=== PATIENT | female | born 1935 | race Caucasian/White ===

== ENCOUNTER → 2016-05-30 | Outpatient (CLI) | payer OTHER ==
[~2016-05-30] MED LIST: ACET-1311 PO; BUPR75TA20 PO; CLC100X PO; DIGO0.122 PO; DILT120T8 PO; FERR325T5 PO; MAGNTAB4 PO; METO-596 PO; METO25TA56 PO; NMN10 PO; POTA-327 PO; SENN1TAB65 PO; SIMV10TA2 PO; SIMV20TA2 PO; SODI1TAB PO; WARF4TAB PO; WARF5TAB90 PO; ZNTT/150 PO
[2016-05-30 08:44] LABS: INR 2.5 (0.9-1.1); PROTHROMBIN TIME (PATIENT) 28.2 SECONDS (9.0-12.0)
== END ==
LOC: C.LABCC 08:21
PROVIDERS: ATTEND Internal Medicine
DX: I48.91 Unspecified atrial fibrillation (principal)

== ENCOUNTER → 2016-07-01 | Outpatient (CLI) | payer OTHER ==
[2016-07-01 08:14] LABS: INR 2.4 (0.9-1.1); PROTHROMBIN TIME (PATIENT) 26.4 SECONDS (9.0-12.0)
== END ==
LOC: C.LABCC 07:52
PROVIDERS: ATTEND Internal Medicine
DX: I48.91 Unspecified atrial fibrillation (principal)

== ENCOUNTER → 2016-08-04 | Outpatient (CLI) | payer OTHER ==
[2016-08-04 08:25] LABS: INR 1.5 (0.9-1.1); PROTHROMBIN TIME (PATIENT) 16.4 SECONDS (9.0-12.0)
== END ==
LOC: C.LABCC 07:54
PROVIDERS: ATTEND Internal Medicine
DX: I48.91 Unspecified atrial fibrillation (principal)

== ENCOUNTER → 2016-08-12 | Outpatient (CLI) | payer OTHER ==
[2016-08-12 09:22] LABS: INR 2.4 (0.9-1.1); PROTHROMBIN TIME (PATIENT) 26.6 SECONDS (9.0-12.0)
== END ==
LOC: C.LABCC 08:43
PROVIDERS: ATTEND Internal Medicine
DX: I48.91 Unspecified atrial fibrillation (principal)

== ENCOUNTER → 2016-08-29 | Outpatient (CLI) | payer OTHER ==
[2016-08-29 08:32] LABS: INR 2.5 (0.9-1.1); PROTHROMBIN TIME (PATIENT) 27.4 SECONDS (9.0-12.0)
== END ==
LOC: C.LABCC 07:53
PROVIDERS: ATTEND Internal Medicine
DX: I48.91 Unspecified atrial fibrillation (principal)

== ENCOUNTER → 2016-08-30 | Outpatient (CLI) | payer OTHER | LOC: C.LABCC 07:51 | PROVIDERS: ATTEND Internal Medicine | DX: I25.10 Atherosclerotic heart disease of native coronary artery without angina pectoris (principal); Z51.81 Encounter for therapeutic drug level monitoring; Z79.899 Other long term (current) drug therapy ==

== ENCOUNTER → 2016-09-22 | Outpatient (CLI) | payer OTHER ==
[2016-09-22 09:27] LABS: HEMATOCRIT 33.9 % (37-47); MEAN CELL VOLUME 87.6 fL (80-100); MEAN CORPUSCULAR HEMOGLOBIN 27.4 pg (25-34); MEAN CORPUSCULAR HGB CONC 31.3 g/dl (32-36); MEAN PLATELET VOLUME 9.7 fL (7.4-10.4); PLATELET COUNT 229 K/uL (130-400); RED BLOOD COUNT 3.87 M/uL (4.2-5.4); WHITE BLOOD COUNT 4.99 K/uL (4.8-10.8)
[2016-09-22 10:01] LABS: ALT/SGPT 18 U/L (12-78); BLOOD UREA NITROGEN 19 mg/dl (7-18); BUN/CREATININE RATIO 19.6 (10-20); CARBON DIOXIDE 26 mmol/L (21-32); CHLORIDE 102 mmol/L (98-107); CREATININE 0.96 mg/dl (0.60-1.20); GLUCOSE 85 mg/dl (70-99); POTASSIUM 4.4 mmol/L (3.5-5.1); SODIUM 136 mmol/L (136-145)
[2016-09-22 10:07] LABS: ALB/GLOB RATIO 0.7 (0.9-2); ALKALINE PHOSPHATASE 95 U/L (45-117); AST/SGOT 16 U/L (15-37); FERRITIN 140.1 ng/ml (8.0-388.0); TOTAL IRON BINDING CAPACITY 274 mcg/dl (250-450)
[2016-09-22 10:21] LABS: CALCIUM 8.8 mg/dl (8.5-10.1)
== END ==
LOC: C.LABCC 07:52
PROVIDERS: ATTEND Internal Medicine
DX: D64.9 Anemia, unspecified (principal); I95.9 Hypotension, unspecified; F03.90 Unspecified dementia, unspecified severity, without behavioral disturbance, psychotic disturbance, mood disturbance, and anxiety

== ENCOUNTER → 2016-09-30 | Outpatient (CLI) | payer OTHER ==
[2016-09-30 08:57] LABS: INR 1.9 (0.9-1.1); PROTHROMBIN TIME (PATIENT) 21.3 SECONDS (9.0-12.0)
== END ==
LOC: C.LABCC 08:00
PROVIDERS: ATTEND Internal Medicine
DX: I48.91 Unspecified atrial fibrillation (principal)

== ENCOUNTER → 2016-10-10 | Outpatient (CLI) | payer OTHER ==
[2016-10-10 10:26] LABS: INR 1.7 (0.9-1.1); PROTHROMBIN TIME (PATIENT) 18.9 SECONDS (9.0-12.0)
== END | disposition home or self-care (01) ==
LOC: C.LABCC 07:46
PROVIDERS: ATTEND Internal Medicine
DX: I48.91 Unspecified atrial fibrillation (principal)

== ENCOUNTER 2016-10-13 21:05 | Inpatient (IN) | payer OTHER ==
[~2016-10-13] VITALS: Ht 170.2 cm; Wt 78.6 kg
[~2016-10-13 21:05] MED LIST changes: -ACET-1311 PO; -BUPR75TA20 PO; -METO25TA56 PO; -SENN1TAB65 PO; -SIMV10TA2 PO; -SODI1TAB PO; -ZNTT/150 PO
--- NOTE | 2016-10-13 21:23 | DIAGNOSTIC IMAGING REPORT ---
CT OF THE HEAD WITHOUT CONTRAST CLINICAL HISTORY: Stroke alert. COMPARISON STUDY: Head CT December 03, 2014. CT DOSE: 964.40 mGy.cm TECHNIQUE: Helical axial images of the head were obtained without IV contrast. Automated exposure control was utilized for the study. FINDINGS: No acute intracranial hemorrhage, midline shift or mass effect is present. Study is mildly compromised by artifact. Old left MCA territory infarct is noted. There is increased attenuation within the distal left middle cerebral artery. This is age indeterminate. There is possible hypodensity within the lateral aspect of the right cerebellar hemisphere. There is also possible loss of castle-white differentiation within the anterior left frontal lobe. Ventricular system is unremarkable. There are no significant calvarial abnormalities. There are postsurgical finding within the sinuses. IMPRESSION: 1. No acute intracranial hemorrhage or mass effect. 2. Old left MCA territory infarct. 3. Apparent increased attenuation of the distal left middle cerebral artery. This could reflect age indeterminate thrombus. 4. Hypodensity within the lateral right cerebellar hemisphere and possible loss of castle-white differentiation within the anterior left frontal lobe. The findings are probably artifactual although acute infarcts could appear similar. Electronically signed by: Vlad Orourke M.D. 10/13/2016 9:22 PM Dictated Date/Time: 10/13/2016 9:13 PM
[2016-10-13 21:30] LABS: ISTAT HEMOGLOBIN 13.9 g/dl (12.0-16.0); ISTAT IONIZED CALCIUM 1.19 mmol/l (1.12-1.32)
[2016-10-13] MEDS ORDERED: SODIUM CHLORIDE 0.9% 1000ML 1,000 ML IV SCH (21:31)
--- NOTE | 2016-10-13 21:34 | EMERGENCY ROOM VISIT NOTE ---
History Report prepared by Rafal: Ema Joe Under the Supervision of: Dr. Marzena Cobian M.D. First contact with patient: 21:04 Chief Complaint: STROKE SYMPTOMS Stated Complaint: STROKE SX History of Present Illness The patient is an 80 year old female who presents to the Emergency Room with complaints of sudden stroke symptoms that began around 1899. Per EMS, the patient arrives via ALS from [facility]. They note that the patient had sudden onset of stroke symptoms. EMS reports that the patient has had aphasia, right sided facial droop, and right sided weakness. EMS reports that the patient is a full code. They note that the patient has a history of a previous stroke in 2014. The history is limited secondary to the patient's aphasia. Source of History: patient History Limited By: aphasia Onset: 1899 Position: other (global) Quality: other (stroke symptoms) Timing: other (sudden) Associated Symptoms: + weakness (right sided) Note: Associated Symptoms: aphasia, right sided facial droop Review of Systems The history is limited secondary to the patient's aphasia. Past Medical & Surgical Medical Problems: (1) Atrial fibrillation (2) Benign essential hypertension (3) Dyslipidemia (4) Hyponatremia (5) Implantation of cardiac pacemaker (6) Mitral valve regurgitation (7) Pulmonary hypertension (8) Tricuspid valve regurgitation Family History Patient reports no known family medical history. Social History Smoking Status: Never Smoker Alcohol Use: none Marital Status: single Housing Status: lives alone Occupation Status: retired Current/Historical Medications Scheduled Bupropion (Wellbutrin), 75 MG PO QAM Digoxin (Lanoxin), 0.125 MG PO QAM Diltiazem Hcl (Cardizem), 120 MG PO QAM Ferrous Sulfate (Ferrous Sulfate), 325 MG PO QAM Magnesium Chloride (Slow-Mag Tab), 64 MG PO BID Memantine (Namenda), 10 MG PO BID Metoprolol Tartrate (Lopressor) (Lopressor), 25 MG PO BID Potassium Ext Rel (Klor-Con), 10 MEQ PO BID Ranitidine (Zantac), 150 MG PO HS Sennosides-Docusate Sodium (Senna Plus), 1 TAB PO BID Simvastatin (Zocor), 10 MG PO QPM Sodium Chloride (Sodium Chloride), 2 GM PO TID Warfarin Sodium (Coumadin), 5 MG PO DAILY Scheduled PRN Acetaminophen (Tylenol), 650 MG PO Q6H PRN for Pain or Fever Allergies Coded Allergies: No Known Allergies (Verified , NONE, 10/13/16) Physical Exam Vital Signs Date Time Temp Pulse Resp B/P (MAP) Pulse Ox O2 Delivery O2 Flow Rate FiO2 10/13/16 23:51 85 97 10/13/16 23:36 83 96 10/13/16 23:31 158/65 10/13/16 23:21 76 155/72 96 10/13/16 23:11 135/73 10/13/16 23:06 80 97 10/13/16 23:01 160/74 10/13/16 22:56 91 98 10/13/16 22:51 163/65 10/13/16 22:46 84 93 10/13/16 22:41 166/76 10/13/16 22:36 79 96 10/13/16 22:31 186/83 10/13/16 22:26 80 97 10/13/16 22:21 178/106 10/13/16 22:15 83 96 10/13/16 22:12 150/73 10/13/16 22:05 82 97 10/13/16 22:01 158/73 10/13/16 21:55 74 97 10/13/16 21:51 169/82 10/13/16 21:45 79 96 10/13/16 21:41 159/78 10/13/16 21:36 96 Room Air 10/13/16 21:35 76 96 10/13/16 21:34 75 20 145/78 97 Room Air 10/13/16 21:32 145/78 10/13/16 21:25 80 97 10/13/16 21:21 83 10/13/16 21:19 36.4 81 20 167/75 97 Room Air 10/13/16 21:15 167/75 Physical Exam Vital signs reviewed. General: Well-appearing female, in no significant distress. HEENT: No scleral icterus, PERRLA, mild right nasal labial fold flattening, neck supple. Atraumatic. Cardiovascular: Regular rate and rhythm, no extra sounds. Pulmonary: Clear to auscultation bilaterally, normal work of breathing. Abdomen: Soft, nontender, nondistended, positive bowel sounds. Musculoskeletal: Atraumatic, no peripheral edema. Neurologic: 3/5 strength in the right upper extremity, 3/5 strength in the right lower extremity. Moderate right pronator drift. Generally follows simple commands, unable to state month, age, or current year. Answers her name and date. Speech is slurred. Skin: Warm, dry, no rash Medical Decision & Procedures ER Provider Diagnostic Interpretation: Radiology results as stated below per my review and radiologist interpretation: CT OF THE HEAD WITHOUT CONTRAST CLINICAL HISTORY: Stroke alert. COMPARISON STUDY: Head CT December 03, 2014. CT DOSE: 964.40 mGy.cm TECHNIQUE: Helical axial images of the head were obtained without IV contrast. Automated exposure control was utilized for the study. FINDINGS: No acute intracranial hemorrhage, midline shift or mass effect is present. Study is mildly compromised by artifact. Old left MCA territory infarct is noted. There is increased attenuation within the distal left middle cerebral artery. This is age indeterminate. There is possible hypodensity within the lateral aspect of the right cerebellar hemisphere. There is also possible loss of castle-white differentiation within the anterior left frontal lobe. Ventricular system is unremarkable. There are no significant calvarial abnormalities. There are postsurgical finding within the sinuses. IMPRESSION: 1. No acute intracranial hemorrhage or mass effect. 2. Old left MCA territory infarct. 3. Apparent increased attenuation of the distal left middle cerebral artery. This could reflect age indeterminate thrombus. 4. Hypodensity within the lateral right cerebellar hemisphere and possible loss of castle-white differentiation within the anterior left frontal lobe. The findings are probably artifactual although acute infarcts could appear similar. Electronically signed by: Vlad Orourke M.D. 10/13/2016 9:22 PM Dictated Date/Time: 10/13/2016 9:13 PM CHEST ONE VIEW PORTABLE CLINICAL HISTORY: Stroke COMPARISON STUDY: Chest radiograph December 03, 2014. FINDINGS: A dual lead left subclavian pacemaker is noted. Lead is unchanged in position. Cardiomegaly is unchanged. There is pulmonary vascular congestion without overt pulmonary edema. Mild left basilar opacity is unchanged and likely chronic. Elevation of the no pneumothorax. The right hemidiaphragm is unchanged. There is no pneumothorax. Positioning on this exam was difficult. IMPRESSION: 1. No significant change in appearance of the chest. 2. Pulmonary vascular congestion without overt pulmonary edema. 3. Stable elevation of the right hemidiaphragm. 4. Mild right basilar opacity which favors atelectasis. Electronically signed by: Vlad Orourke M.D. 10/13/2016 10:54 PM Dictated Date/Time: 10/13/2016 10:52 PM Laboratory Results Test 10/13/16 20:50 10/13/16 21:14 10/13/16 21:16 10/13/16 21:19 Total Creatine Kinase 49 U/L (26-192) Creatine Kinase MB 1.7 ng/ml (0.5-3.6) Creatine Kinase MB Ratio 3.5 (0-3.0) Troponin I < 0.015 ng/ml (0-0.045) Bedside Hemoglobin 13.9 g/dl (12.0-16.0) Bedside Hematocrit 41 % (37-47) Bedside Sodium 135 mEq/L (135-144) Bedside Potassium 4.0 mEq/L (3.3-5.0) Bedside Chloride 96 mEq/L (101-112) Bedside Total CO2 29 mEq/l (24-31) Bedside Blood Urea Nitrogen 20 mg/dl (7-18) Bedside Creatinine 1.0 mg/dl (0.6-1.3) Bedside Glucose (other) 169 mg/dl (70-99) Bedside Ionized Calcium (Samia) 1.19 mmol/l (1.12-1.32) Bedside Prothrombin Time INR 2.2 (0.9-1.1) Bedside Glucose 186 mg/dl (70-90) Test 10/13/16 22:55 Urine Color YELLOW Urine Appearance CLEAR (CLEAR) Urine pH 5.5 (4.5-7.5) Urine Specific [place] 1.010 (1.000-1.030) Urine Protein NEG (NEG) Urine Glucose (UA) NEG (NEG) Urine Ketones NEG (NEG) Urine Occult Blood 1+ (NEG) Urine Nitrite POS (NEG) Urine Bilirubin NEG (NEG) Urine Urobilinogen NEG (NEG) Urine Leukocyte Esterase NEG (NEG) Urine WBC (Auto) 0 /hpf (0-5) Urine RBC (Auto) 0-4 /hpf (0-4) Urine Hyaline Casts (Auto) 1-5 /lpf (0-5) Urine Epithelial Cells (Auto) 0-5 /lpf (0-5) Urine Bacteria (Auto) 4+ (NEG) Laboratory results per my review. Medications Administered Medications (Trade) Dose Ordered Sig/Yonathan Route Start Time Stop Time Status Last Admin Dose Admin Sodium Chloride 1,000 ml @ 75 mls/hr [id number] IV 10/13/16 21:31 10/14/16 02:30 DC 10/13/16 22:00 75 MLS/HR ECG Indication: other (stroke symptoms) Rate (beats per minute): 79 Rhythm: other (ventricular paced) Findings: PVC, no acute ischemic change ED Course 2104: The patient arrived to the emergency department and was taken straight over for a CT scan. 2113: Past medical records reviewed. The patient was evaluated in room A1. A complete history and physical examination was performed. 2130: I discussed the patients case with Jordyn White Stroke Neurology. He will evaluate the patient via TeleStroke. Ordered Sodium Chloride 1000 ml @ 75 mls/hr IV. 2208: I reevaluated the patient and Jordyn White Stroke Neurology is evaluating the patient via TeleStroke. 2212: The patients family arrived at this time and Jordyn White Stroke Neurology spoke to the family at this time. 2223: I spoke to the patients family at this time. 2231: I spoke to Jordyn White Stroke Neurology at this time 2315: I reevaluated the patient and she is resting. I discussed the exam findings with the patients family and I discussed the treatment plan. They verbalized complete understanding and agreement. The patient will be evaluated for further treatment. 2346: The patients case was discussed [place] [facility] [place] is going to evaluate the patient for further treatment. Medical Decision Differential diagnosis: Etiologies such as metabolic, infection, hypo/hyperglycemia, electrolyte abnormalities, cardiac sources, intracerebral event, toxicologic, neurologic, as well as others were entertained. Medication Reconciliation: I attest that I have personally reviewed the patient' s current medication list. Blood Pressure Screening: Patient was found to have an elevated blood pressure and will be followed up while evaluated in the hospital. This patient was evaluated and appeared to be in no significant distress. IV access was obtained and laboratory work was drawn. CT scan of the head was performed and is read as above. There is a concern over a distal left MCA thrombus. The age is uncertain. The patient appears to be having an acute stroke. Her baseline is difficult to ascertain at this point. I did speak with the patient's son on the phone who states he is on his way to the hospital. The patient does not meet criteria for TPA based on her INR of 2.2. Telemetry stroke neurology, Dr. Da Silva, was consulted. He evaluated the patient and her determined after his evaluation and conversation with the patient's son and grandson at the bedside, that she would best be served at [facility] given her chronic illness. The patient has limited mobility at baseline and uses a wheelchair. The patient's case was discussed with the hospitalist service who evaluated the patient for admission and further management. Consults Time Called: 2123 Consulting Physician: Jordyn [facility] Neu[facility] Returned Call: 2130 I discussed the patients case with Jordyn White Stroke Neurology. He will evaluate the patient via TeleStroke. Additional Consults: Time Called: 2316 Consulted Physician: JELANI Enciso Returned Call: [phone] Additional Comments: The patients case was discussed with JELANI Enciso. He is going to evaluate the patient for further treatment. Impression Primary Impression: Altered mental status Additional Impressions: Stroke UTI (lower urinary tract infection) Scribe Attestation The scribe's documentation has been prepared under my direction and personally reviewed by me in its entirety. I confirm that the note above accurately reflects all work, treatment, procedures, and medical decision making performed by me. Departure Information Dispostion Being Evaluated By Hospitalist Referrals [facility] (PCP) Stroke History Time Last Known Well 1919 Stroke t-PA Criteria Reviewed Does NOT meet criteria for t-PA Reason t-PA Not Given Treatment not indicated Strict Exclusion Criteria INR greater than 1.7 Extended Window (3-4.5 hour) Age greater than 80, Any anticoagulant use Problem Qualifiers
[2016-10-13 21:46] LABS: BASO % 0.3 %; BASO ABS # 0.02 K/uL (0-0.2); COMPLETE YES; EOS % 6.2 %; HEMATOCRIT 39.4 % (37-47); LYMPH % 18.9 %; MEAN CELL VOLUME 87.6 fL (80-100); MEAN CORPUSCULAR HEMOGLOBIN 28.7 pg (25-34); MEAN CORPUSCULAR HGB CONC 32.7 g/dl (32-36); MEAN PLATELET VOLUME 9.7 fL (7.4-10.4); MONO % 9.1 %; NEUT % 65.5 %; PLATELET COUNT 262 K/uL (130-400); WHITE BLOOD COUNT 6.34 K/uL (4.8-10.8)
[2016-10-13 21:55] LABS: INR 1.9 (0.9-1.1); PARTIAL THROMBOPLASTIN RATIO 1.5; PROTHROMBIN TIME (PATIENT) 20.7 SECONDS (9.0-12.0)
[2016-10-13 21:59] LABS: BLOOD UREA NITROGEN 20 mg/dl (7-18); BUN/CREATININE RATIO 18.1 (10-20); CARBON DIOXIDE 29 mmol/L (21-32); CHLORIDE 98 mmol/L (98-107); GLUCOSE 172 mg/dl (70-99); SODIUM 135 mmol/L (136-145)
[2016-10-13 22:04] LABS: CKMB/CK RATIO 3.5 (0-3.0)
[2016-10-13 22:37] LABS: CALCIUM 9.5 mg/dl (8.5-10.1)
--- NOTE | 2016-10-13 22:55 | DIAGNOSTIC IMAGING REPORT ---
CHEST ONE VIEW PORTABLE CLINICAL HISTORY: Stroke COMPARISON STUDY: Chest radiograph December 03, 2014. FINDINGS: A dual lead left subclavian pacemaker is noted. Lead is unchanged in position. Cardiomegaly is unchanged. There is pulmonary vascular congestion without overt pulmonary edema. Mild left basilar opacity is unchanged and likely chronic. Elevation of the no pneumothorax. The right hemidiaphragm is unchanged. There is no pneumothorax. Positioning on this exam was difficult. IMPRESSION: 1. No significant change in appearance of the chest. 2. Pulmonary vascular congestion without overt pulmonary edema. 3. Stable elevation of the right hemidiaphragm. 4. Mild right basilar opacity which favors atelectasis. Electronically signed by: Vlad Orourke M.D. 10/13/2016 10:54 PM Dictated Date/Time: 10/13/2016 10:52 PM
[2016-10-13 23:17] LABS: URINE APPEARANCE CLEAR (CLEAR); URINE BILIRUBIN NEG (NEG); URINE COLOR YELLOW; URINE EPITHELIAL CELL AUTO 0-5 /lpf (0-5); URINE NITRITE POS (NEG); URINE PH 5.5 (4.5-7.5); UROBILINOGEN NEG (NEG); ZZUR CULT IF INDIC CLEAN CATCH YES
[2016-10-13] MEDS ORDERED: BUPR75TA20 PO (23:36)
[2016-10-13 23:40] LABS: MANUAL MICROSCOPIC REQUIRED? NO; REVIEW REQ? NO
[2016-10-13] MEDS ORDERED: METO25TA56 PO (23:42)
[2016-10-13] MEDS ORDERED: ZNTT/150 PO (23:44)
[2016-10-13] MEDS ORDERED: SENN1TAB65 PO (23:46)
[2016-10-13] MEDS ORDERED: SIMV10TA2 PO (23:47)
[2016-10-13] MEDS ORDERED: SODI1TAB PO (23:49)
[2016-10-13] MEDS ORDERED: ACET-1311 PO (23:51)
[2016-10-13] MEDS ORDERED: WARF5TAB90 PO (23:53)
[2016-10-14] VITALS (7 sets, daily range): BP systolic 126–169; BP diastolic 77–83; PULSE 18–88; TEMP 36.4–36.6; O2SAT 93–99; Ht 170.2 cm; Wt 78.6 kg
[2016-10-14] MEDS ORDERED: OPTIRAY 320 IV PRN (00:15)
[2016-10-14] MEDS ORDERED: VANCOMYCIN INJ 1,000 MG in SODIUM CHLORIDE 0.9% 250ML 250 ML IV STA (02:27)
[2016-10-14] MEDS ORDERED: ACETAMINOPHEN IV 100 ML IV PRN (02:30)
[2016-10-14] MEDS ORDERED: METOPROLOL TARTRATE 1 MG/ML VIAL IV PRN (02:30)
[2016-10-14] MEDS ORDERED: ONDANSETRON INJ 2 MG/ML 2 ML VIAL IV PRN (02:30)
[2016-10-14] MEDS ORDERED: VANCOMYCIN CONSULT ACTIVE PRN (02:45)
[2016-10-14] MEDS ORDERED: PIPERACILL/TAZOBAC CONSULT ACTIVE PRN (02:45)
[2016-10-14] MEDS ORDERED: PIPERACILL/TAZOBAC IV 3.375 GM in DEXTROSE 5% 100ML IV ONE (03:00)
[2016-10-14] MEDS ORDERED: VANCOMYCIN INJ 2,050 MG in SODIUM CHLORIDE 0.9% 500ML 500 ML IV SCH (03:00)
[2016-10-14] MEDS: NSS + 20MEQ KCL 1000ML 1,000 ML IV SCH ×3 (03:01→23:42)
[2016-10-14] MEDS ORDERED: [UNRECOGNIZED DRUG - REMARK] PRN (03:15)
[2016-10-14] MEDS: RANITIDINE IV 50 MG in DEXTROSE 5% 100ML 100 ML IV SCH ×3 (03:47→19:55)
[2016-10-14] MEDS ORDERED: PIPERACILL/TAZOBAC IV 3.375 GM in DEXTROSE 5% 100ML 100 ML IV SCH (06:00)
--- NOTE | 2016-10-14 06:51 | DIAGNOSTIC IMAGING REPORT ---
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 This has some characteristics of a chronic finding. All remaining intracranial vasculature is patent. Mild scattered abscess chronic change is noted. No evidence for aneurysmal formation. 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 All remaining vessels appear patent. Electronically signed by: Chuckie Machado M.D. 10/14/2016 6:49 AM Dictated Date/Time: 10/14/2016 6:47 AM
--- NOTE | 2016-10-14 07:08 | DIAGNOSTIC IMAGING REPORT ---
CT NECK ANGIO WITH CONTRAST CLINICAL HISTORY: Change in mental status. Possible stroke. COMPARISON STUDY: Carotid Doppler ultrasound dated 01/22/2014 TECHNIQUE: CT angiography was performed from the aortic arch to the skull base. MIP imaging was performed. The patient was scanned in a dynamic helical fashion during intravenous administration of 100 cc of Optiray 320. CT DOSE: Technique: CT angiogram of the carotid and vertebral arteries was obtained using intravenous contrast and 3-D reconstruction. NASCET criteria was utilized. Findings: There is no evidence of stenosis of the right internal carotid artery. There is a moderate stenosis of the right external carotid artery origin. There is no aneurysm. There is no dissection. There is mild atheromatous plaquing at the left carotid bifurcation. There is no evidence of hemodynamic significant carotid stenosis. There is no aneurysm or dissection. The left vertebral artery is dominant. There is no evidence of vertebral artery stenosis. IMPRESSION: No evidence of hemodynamically significant internal carotid or vertebral artery stenosis. No evidence of dissection. Electronically signed by: Pipo Varghese M.D. 10/14/2016 7:06 AM Dictated Date/Time: 10/14/2016 7:03 AM
--- NOTE | 2016-10-14 07:34 | History and Physical ---
History & Physical Date & Time of Service: Oct 14, 2016 at 07:21. The patient was examined on 10/13/2016. Chief Complaint: Change In Mental Status Primary Care Physician: Ant Rubin History of Present Illness Source: patient, family The patient is an 80-year-old female resident of [facility] brought to the emergency room via ALS with concerns regarding sudden stroke like symptoms began around 1900 hrs that began about 2 hours prior to arrival. The patient reportedly had aphasia, right-sided facial droop and right-sided weakness. She does have a history of previous stroke in 2014. Her history of present illness is limited due to her aphasia. Past Medical/Surgical History Medical Problems: (1) Atrial fibrillation Status: Chronic (2) Benign essential hypertension Status: Chronic (3) Dyslipidemia Status: Chronic (4) Hyponatremia Status: Chronic (5) Implantation of cardiac pacemaker Status: Chronic (6) Mitral valve regurgitation Status: Chronic (7) Pulmonary hypertension Status: Chronic (8) Tricuspid valve regurgitation Status: Chronic Family History Patient reports no known family medical history. Social History Smoking Status: Never Smoker Smokeless Tobacco Use: No Alcohol Use: none Drug Use: none Marital Status: single Housing status: jail Occupational Status: retired Immunizations History of Influenza Vaccine: N/A Influenza Vaccine Date: Aug 18, 2008 History of Tetanus Vaccine?: Unknown History of Pneumococcal: Unknown Pneumococcal Date: Jun 21, 2012 History of Hepatitis B Vaccine: Unknown Multi-Drug Resistant Organisms History of MDRO: No Allergies Coded Allergies: No Known Allergies (Verified , NONE, 10/13/16) Home Medications Scheduled Bupropion (Wellbutrin), 75 MG PO QAM Digoxin (Lanoxin), 0.125 MG PO QAM Diltiazem Hcl (Cardizem), 120 MG PO QAM Ferrous Sulfate (Ferrous Sulfate), 325 MG PO QAM Magnesium Chloride (Slow-Mag Tab), 64 MG PO BID Memantine (Namenda), 10 MG PO BID Metoprolol Tartrate (Lopressor) (Lopressor), 25 MG PO BID Potassium Ext Rel (Klor-Con), 10 MEQ PO BID Ranitidine (Zantac), 150 MG PO HS Sennosides-Docusate Sodium (Senna Plus), 1 TAB PO BID Simvastatin (Zocor), 10 MG PO QPM Sodium Chloride (Sodium Chloride), 2 GM PO TID Warfarin Sodium (Coumadin), 5 MG PO DAILY Scheduled PRN Acetaminophen (Tylenol), 650 MG PO Q6H PRN for Pain or Fever Review of Systems The review of systems is significantly limited due to patient's altered mental state, and information is gathered from chart review and records from [facility]. Physical Exam Vital Signs Date Time Temp Pulse Resp B/P (MAP) Pulse Ox O2 Delivery O2 Flow Rate FiO2 10/14/16 04:00 Room Air 10/14/16 02:59 36.4 88 18 160/79 (106) 98 Room Air 10/14/16 00:57 36.4 78 19 169/83 98 Room Air 10/14/16 00:06 83 86 10/14/16 00:01 161/71 10/13/16 23:51 85 97 10/13/16 23:36 83 96 10/13/16 23:31 158/65 10/13/16 23:21 76 155/72 96 10/13/16 23:11 135/73 10/13/16 23:06 80 97 10/13/16 23:01 160/74 10/13/16 22:56 91 98 10/13/16 22:51 163/65 10/13/16 22:46 84 93 10/13/16 22:41 166/76 10/13/16 22:36 79 96 10/13/16 22:31 186/83 10/13/16 22:26 80 97 10/13/16 22:21 178/106 10/13/16 22:15 83 96 10/13/16 22:12 150/73 10/13/16 22:05 82 97 10/13/16 22:01 158/73 10/13/16 21:55 74 97 10/13/16 21:51 169/82 10/13/16 21:45 79 96 10/13/16 21:41 159/78 10/13/16 21:36 96 Room Air 10/13/16 21:35 76 96 10/13/16 21:34 75 20 145/78 97 Room Air 10/13/16 21:32 145/78 10/13/16 21:25 80 97 10/13/16 21:21 83 10/13/16 21:19 36.4 81 20 167/75 97 Room Air 10/13/16 21:15 167/75 The patient is awake, alert, with right facial droop, is gradually becoming more able to speak but still with significant difficulties, lying in bed and in no acute distress. HEENT--PERRL, EOMI, mucous membranes and oropharynx dry. Neck--supple, no JVD or bruits, thyroid normal, trachea midline, no adenopathy. Heart--normal S1 and S2, no extra beats, no murmurs, rubs or gallops. Lungs--decreased breath sounds right base and right anterior chest, no respiratory distress, no accessory muscle use. Abdomen--normal bowel sounds and soft, nontender and nondistended, no hernias or masses, no organomegaly. Extremities--no cyanosis, clubbing or edema. There are good distal pulses b/l. Dermatologic--normal skin turgor, normal color, warm and dry, no abnormal lymph nodes, no rash. Neurologic--cranial nerves II through XII grossly intact, other than facial droop as noted. Rheumatologic--limited exam due to altered mental state Psychiatric--limited due to altered mental state Diagnostics Laboratory Results Results Past 24 Hours Test 10/13/16 20:50 10/13/16 21:14 10/13/16 21:16 10/13/16 21:19 Range/Units White Blood Count 6.34 4.8-10.8 K/uL Red Blood Count 4.50 4.2-5.4 M/uL Hemoglobin 12.9 12.0-16.0 g/dL Hematocrit 39.4 37-47 % Mean Corpuscular Volume 87.6 80-100 fL Mean Corpuscular Hemoglobin 28.7 25-34 pg Mean Corpuscular Hemoglobin Concent 32.7 32-36 g/dl Platelet Count 262 130-400 K/uL Mean Platelet Volume 9.7 7.4-10.4 fL Neutrophils (%) (Auto) 65.5 % Lymphocytes (%) (Auto) 18.9 % Monocytes (%) (Auto) 9.1 % Eosinophils (%) (Auto) 6.2 % Basophils (%) (Auto) 0.3 % Neutrophils # (Auto) 4.15 1.4-6.5 K/uL Lymphocytes # (Auto) 1.20 1.2-3.4 K/uL Monocytes # (Auto) 0.58 0.11-0.59 K/uL Eosinophils # (Auto) 0.39 0-0.5 K/uL Basophils # (Auto) 0.02 0-0.2 K/uL RDW Standard Deviation 51.0 36.4-46.3 fL RDW Coefficient of Variation 15.8 11.5-14.5 % Immature Granulocyte % (Auto) 0.0 % Immature Granulocyte # (Auto) 0.00 0.00-0.02 K/uL Prothrombin Time 20.7 9.0-12.0 SECONDS Prothromb Time International Ratio 1.9 0.9-1.1 Activated Partial Thromboplast Time 38.0 21.0-31.0 SECONDS Partial Thromboplastin Ratio 1.5 Sodium Level 135 136-145 mmol/L Potassium Level 4.0 3.5-5.1 mmol/L Chloride Level 98 98-107 mmol/L Carbon Dioxide Level 29 21-32 mmol/L Anion Gap 8.0 16.0 16-25 mmol/L Blood Urea Nitrogen 20 7-18 mg/dl Creatinine 1.10 0.60-1.20 mg/dl Est Creatinine Clear Calc Drug Dose 46.1 ml/min Estimated GFR () 54.9 Estimated GFR (Non- 47.4 BUN/Creatinine Ratio 18.1 10-20 Random Glucose 172 70-99 mg/dl Calcium Level 9.5 8.5-10.1 mg/dl Total Creatine Kinase 49 26-192 U/L Creatine Kinase MB 1.7 0.5-3.6 ng/ml Creatine Kinase MB Ratio 3.5 0-3.0 Troponin I < 0.015 0-0.045 ng/ml Bedside Hemoglobin 13.9 12.0-16.0 g/dl Bedside Hematocrit 41 37-47 % Bedside Sodium 135 135-144 mEq/L Bedside Potassium 4.0 3.3-5.0 mEq/L Bedside Chloride 96 101-112 mEq/L Bedside Total CO2 29 24-31 mEq/l Bedside Blood Urea Nitrogen 20 7-18 mg/dl Bedside Creatinine 1.0 0.6-1.3 mg/dl Bedside Glucose (other) 169 70-99 mg/dl Bedside Ionized Calcium (Samia) 1.19 1.12-1.32 mmol/l Bedside Prothrombin Time INR 2.2 0.9-1.1 Bedside Glucose 186 70-90 mg/dl Test 10/13/16 22:55 Range/Units Urine Color YELLOW Urine Appearance CLEAR CLEAR Urine pH 5.5 4.5-7.5 Urine Specific [place] 1.010 1.000-1.030 Urine Protein NEG NEG Urine Glucose (UA) NEG NEG Urine Ketones NEG NEG Urine Occult Blood 1+ NEG Urine Nitrite POS NEG Urine Bilirubin NEG NEG Urine Urobilinogen NEG NEG Urine Leukocyte Esterase NEG NEG Urine WBC (Auto) 0 0-5 /hpf Urine RBC (Auto) 0-4 0-4 /hpf Urine Hyaline Casts (Auto) 1-5 0-5 /lpf Urine Epithelial Cells (Auto) 0-5 0-5 /lpf Urine Bacteria (Auto) 4+ NEG Microbiology Results 10/13/16 Urine Culture, Received Pending Diagnostic Radiology Patient Name: BEE LOPEZ Unit Number: [id number] Dictated: 10/13/162112 Transcribed: 10/13/162112 KRISTA Printed Date/Time: [~ rep prt dt]/[~ rep prt tm] [~ rep ct labl] - [~ rep ct ivnm] [facility] [place] [address] Dictated: 10/13/162112 Transcribed: 10/13/162112 Printed Date/Time: [~ rep prt dt]/[~ rep prt tm] [~ rep ct labl] - [~ rep ct ivnm] [~ rep ct add3]] CT OF THE HEAD WITHOUT CONTRAST CLINICAL HISTORY: Stroke alert. COMPARISON STUDY: Head CT December 03, 2014. CT DOSE: 964.40 mGy.cm TECHNIQUE: Helical axial images of the head were obtained without IV contrast. Automated exposure control was utilized for the study. FINDINGS: No acute intracranial hemorrhage, midline shift or mass effect is present. Study is mildly compromised by artifact. Old left MCA territory infarct is noted. There is increased attenuation within the distal left middle cerebral artery. This is age indeterminate. There is possible hypodensity within the lateral aspect of the right cerebellar hemisphere. There is also possible loss of castle-white differentiation within the anterior left frontal lobe. Ventricular system is unremarkable. There are no significant calvarial abnormalities. There are postsurgical finding within the sinuses. IMPRESSION: 1. No acute intracranial hemorrhage or mass effect. 2. Old left MCA territory infarct. 3. Apparent increased attenuation of the distal left middle cerebral artery. This could reflect age indeterminate thrombus. 4. Hypodensity within the lateral right cerebellar hemisphere and possible loss of castle-white differentiation within the anterior left frontal lobe. The findings are probably artifactual although acute infarcts could appear similar. Electronically signed by: Vlad Orourke M.D. 10/13/2016 9:22 PM Dictated Date/Time: 10/13/2016 9:13 PM The status of this report is Signed. Draft = Not yet reviewed or approved by Radiologist. Signed = Reviewed and approved by Radiologist. <AttendingPhy></AttendingPhy> <FamilyPhy>Ellsworth, Amidon</FamilyPhy> <PrimaryPhy> [facility]</PrimaryPhy> <UnitNumber>[id number]</UnitNumber> <VisitNumber> [id number]</VisitNumber> <PatientName>JESSICABEE</PatientName> < DateOfBirth>1935</DateOfBirth> <Location>[facility]</Location> <ServiceDate></ServiceDate> <MNE>ESINDI</MNE> <OrderingPhy>Marzena Cobian M.D.</ OrderingPhy> <OrderingPhyMNE>f rep ord dr mcfarland</OrderingPhyMNE> <DictatingPhyMNE> f rep dict dr mcfarland</DictatingPhyMNE> <CCListMNE>f rep ct mne</CCListMNE> < AdmittingPhyMNE>f pt admit dr mcfarland</AdmittingPhyMNE> <AttendingPhyMNE>f pt attend dr mcfarland</AttendingPhyMNE> <ConsultingPhyMNE>f pt consult dr mcfarland</ConsultingPhyMNE> <FamilyPhyMNE>f pt fam dr mcfarland</FamilyPhyMNE> <OtherPhyMNE>f pt other dr mcfarland</OtherPhyMNE> < PrimaryPhyMNE>f pt prim care dr mcfarland</PrimaryPhyMNE> <ReferringPhyMNE>f pt referring dr mcfarland</ReferringPhyMNE> Patient Name: JESSICABEE Lakhain Unit Number: [id number] Dictated: 10/13/162251 Transcribed: 10/13/162251 JA Printed Date/Time: [~ rep prt dt]/[~ rep prt tm] [~ rep ct labl] - [~ rep ct ivnm] [facility] Radiology Department [place], [place] [id number] Dictated: 10/13/162251 Transcribed: 10/13/162251 JA Printed Date/Time: [~ rep prt dt]/[~ rep prt tm] [~ rep ct labl] - [~ rep ct ivnm] [~ rep ct add3]] CHEST ONE VIEW PORTABLE CLINICAL HISTORY: Stroke COMPARISON STUDY: Chest radiograph December 03, 2014. FINDINGS: A dual lead left subclavian pacemaker is noted. Lead is unchanged in position. Cardiomegaly is unchanged. There is pulmonary vascular congestion without overt pulmonary edema. Mild left basilar opacity is unchanged and likely chronic. Elevation of the no pneumothorax. The right hemidiaphragm is unchanged. There is no pneumothorax. Positioning on this exam was difficult. IMPRESSION: 1. No significant change in appearance of the chest. 2. Pulmonary vascular congestion without overt pulmonary edema. 3. Stable elevation of the right hemidiaphragm. 4. Mild right basilar opacity which favors atelectasis. Electronically signed by: Vlad Orourke M.D. 10/13/2016 10:54 PM Dictated Date/Time: 10/13/2016 10:52 PM The status of this report is Signed. Draft = Not yet reviewed or approved by Radiologist. Signed = Reviewed and approved by Radiologist. <AttendingPhy></AttendingPhy> <FamilyPhy>[facility]</FamilyPhy> <PrimaryPhy> [facility]</PrimaryPhy> <UnitNumber>[id number]</UnitNumber> <VisitNumber> [id number]</VisitNumber> <PatientName>BEE LOPEZ</PatientName> < DateOfBirth>1935</DateOfBirth> <Location>[facility]</Location> <ServiceDate></ServiceDate> <MNE>ESINDI</MNE> <OrderingPhy>Marzena Cobian M.D.</ OrderingPhy> <OrderingPhyMNE>f rep ord dr mcfarland</OrderingPhyMNE> <DictatingPhyMNE> f rep dict dr mcfarland</DictatingPhyMNE> <CCListMNE>f rep ct bruna</CCListMNE> < AdmittingPhyMNE>f pt admit dr mcfarland</AdmittingPhyMNE> <AttendingPhyMNE>f pt attend dr mcfarland</AttendingPhyMNE> <ConsultingPhyMNE>f pt consult dr mcfarland</ConsultingPhyMNE> <FamilyPhyMNE>f pt fam dr mcfarland</FamilyPhyMNE> <OtherPhyMNE>f pt other dr mcfarland</OtherPhyMNE> < PrimaryPhyMNE>f pt prim care dr mcfarland</PrimaryPhyMNE> <ReferringPhyMNE>f pt referring dr mcfarland</ReferringPhyMNE> EKG EKG shows ventricular paced rhythm at 79 bpm, with aberrantly conducted complexes. Impression Assessment and Plan Improving strokelike symptoms--the patient does respond significantly better to the arrival of her 13-year-old grandson. She still appears somewhat dysphasic and weakness of the right side. She'll be admitted to the telemetry unit for serial cardiac enzymes, cardiac rhythm monitoring and a 2-D echocardiogram with Dopplers. Due to presence of implantable pacemaker she cannot get an MRI, and will therefore order CT angiography of the head and neck. We'll consult PT/OT/ socially responsible investment adviser/speech therapy and neurology. She'll be kept nothing by mouth, placed on IV fluids. Most of her medications will be held as they can be converted to IV. Atrial fibrillation--changed to digoxin 0.125 mg by mouth every morning to IV every morning. Discontinue diltiazem and metoprolol tartrate. Place on Lopressor 5 mg IV every 4 hours with hold parameters. GERD--change ranitidine by mouth to IV. Hypercholesterolemia-- hold simvastatin. Depression/dementia-- hold bupropion and Namenda. Level of Care Telemetry Advanced Directives Existing Advance Directive: No Existing Living Will: No Existing Power of Business Specialist: No Resuscitation Status FULL RESUSCITATION VTE Prophylaxis VTE Risk Assessment Done? Y/N: Yes Risk Level: Moderate Given or contraindicated: Warfarin (Coumadin), SCD's Social Service Consult Lives in Jail
[2016-10-14] MEDS ORDERED: PNEUMOCOCCAL ADMINISTRATION CHARGE ONE (08:00)
[2016-10-14] MEDS ORDERED: PIPERACILL/TAZOBAC IV 3.375 GM in DEXTROSE 5% 100ML IV SCH (08:00)
[2016-10-14] MEDS ORDERED: PNEUMOCOCCAL POLYSACCHARIDES 25 MCG/0.5 ML VIAL/SYR IM. ONE (08:00)
[2016-10-14] MEDS: METOPROLOL TARTRATE 1 MG/ML VIAL IV. SCH ×4 (08:49→19:59)
--- NOTE | 2016-10-14 10:57 | Neurology Consultation ---
Neurology Consultation Date of Consultation: Oct 14, 2016. Attending Physician: Ankur Pichardo D.O. Primary Care Physician: Ant Rubin Reason for Consultation: Stroke History of Present Illness Source: hospital records The patient is an 80 year old female senior living resident who was noted to have acute onset, persistent right sided weakness and aphasia occurring approximately 2 hours prior to her assessment in the emergency department. Past medical history notable for atrial fibrillation with current anticoagulation with warfarin. Patient's INR was 1.9 upon presentation. An EKG revealed a ventricular paced rhythm with aberrant conduction. Patient's history also notable for a chronic left MCA infarct. A CT of the head suggested possible subacute or evolving infarcts within the left frontal lobe as well as the right cerebellar hemisphere. CT angiography of the head and neck suggested a chronic thrombus within the M1 segment of the left middle cerebral artery and was negative for significant extracranial stenosis. A tele-stroke consultation was obtained. TPA was not administered. The patient continues to exhibit a significant aphasia this morning. Past Medical/Surgical History Medical Problems: (1) Altered mental status Status: Acute (2) Stroke Status: Acute Social History Smoking Status: Never smoker Smokeless Tobacco Use: No Alcohol Use: none Drug Use: none Marital Status: single Housing Status: lives alone Occupation Status: retired Allergies Coded Allergies: No Known Allergies (Verified , NONE, 10/13/16) Current Inpatient Medications Current Inpatient Medications Medications (Trade) Dose Ordered Sig/Yonathan Route Start Time Stop Time Status Last Admin Dose Admin Ioversol (Optiray 320) 100 ml UD PRN IV 10/14/16 00:15 10/18/16 00:14 Potassium Chloride/Sodium Chloride 1,000 ml @ 100 mls/hr Q10H IV 10/14/16 02:21 11/13/16 02:20 10/14/16 03:01 100 MLS/HR Digoxin 125 mcg/ Syringe 10 ml @ 2 mls/min DAILY@16 IV 10/14/16 16:00 11/13/16 15:59 Metoprolol Tartrate (Lopressor Iv) 2.5 mg Q4 PRN IV 10/14/16 02:30 11/13/16 02:29 Ranitidine HCl 50 mg/Dextrose 102 ml @ 200 mls/hr Q8H IV 10/14/16 02:30 11/13/16 02:29 10/14/16 03:47 200 MLS/HR Ondansetron HCl (Zofran Inj) 4 mg Q6H PRN IV 10/14/16 02:30 11/13/16 02:29 Acetaminophen 100 ml @ 400 mls/hr Q8H PRN IV 10/14/16 02:30 11/13/16 02:29 Piperacillin Sod/ Tazobactam Sod 3.375 gm/Dextrose 115 ml @ 28.75 mls/ hr Q8H IV 10/14/16 08:00 10/21/16 07:59 10/14/16 08:50 28.75 MLS/HR Piperacillin Sod/ Tazobactam Sod (Consult) 1 ea UD PRN N/A 10/14/16 02:45 11/13/16 02:44 Vancomycin HCl (Consult) 1 ea UD PRN N/A 10/14/16 02:45 11/13/16 02:44 Miscellaneous Information 1 ea UD PRN N/A 10/14/16 03:15 11/13/16 03:14 Metoprolol Tartrate (Lopressor Iv) 5 mg Q4 IV. 10/14/16 08:00 11/13/16 07:59 10/14/16 08:49 5 MG Physical Exam Vital Signs (Past 24 Hrs): Date Time Temp Pulse Resp B/P (MAP) Pulse Ox O2 Delivery O2 Flow Rate FiO2 10/14/16 08:49 76 137/77 10/14/16 07:54 36.4 76 20 137/77 (97) 99 Room Air 10/14/16 04:00 Room Air 10/14/16 02:59 36.4 88 18 160/79 (106) 98 Room Air 10/14/16 00:57 36.4 78 19 169/83 98 Room Air 10/14/16 00:06 83 86 10/14/16 00:01 161/71 10/13/16 23:51 85 97 10/13/16 23:36 83 96 10/13/16 23:31 158/65 10/13/16 23:21 76 155/72 96 10/13/16 23:11 135/73 10/13/16 23:06 80 97 10/13/16 23:01 160/74 10/13/16 22:56 91 98 10/13/16 22:51 163/65 10/13/16 22:46 84 93 10/13/16 22:41 166/76 10/13/16 22:36 79 96 10/13/16 22:31 186/83 10/13/16 22:26 80 97 10/13/16 22:21 178/106 10/13/16 22:15 83 96 10/13/16 22:12 150/73 10/13/16 22:05 82 97 10/13/16 22:01 158/73 10/13/16 21:55 74 97 10/13/16 21:51 169/82 10/13/16 21:45 79 96 10/13/16 21:41 159/78 10/13/16 21:36 96 Room Air 10/13/16 21:35 76 96 10/13/16 21:34 75 20 145/78 97 Room Air 10/13/16 21:32 145/78 10/13/16 21:25 80 97 10/13/16 21:21 83 10/13/16 21:19 36.4 81 20 167/75 97 Room Air 10/13/16 21:15 167/75 The patient is mildly lethargic. Full assessment of higher integrative functions cannot be completed due to patient's aphasia. Attention is reduced. She has significant difficulty naming objects although she is able to repeat simple phrases. Visual andersen full to confrontation. Pupils equal round reactive to light and accommodation. Eye movements normal. There is a right lower facial droop. Palate elevates to midline. Tongue protrudes to midline. Shoulder shrug and hearing intact. Deep tendon reflexes are generally brisk although more so for the right arm and leg. Plantar responses are upgoing bilaterally. There is dysmetria with finger to nose and heel to pandya on the right. There is a right hemiparesis affecting the right arm and leg. Right upper extremity strength 3/5. Right lower extremity strength 3/5. There is poor movement initiation for the right upper extremity. The patient tends to hold the right upper limb in a flexed posture at the elbow. She tends to hold the right lower limb extended and externally rotated. Laboratory Results Past 24 Hours: 10/13/16 20:50 Red Blood Count 4.50, Mean Corpuscular Volume 87.6, Mean Corpuscular Hemoglobin 28.7, Mean Corpuscular Hemoglobin Concent 32.7, Mean Platelet Volume 9.7, Neutrophils (%) (Auto) 65.5, Lymphocytes (%) (Auto) 18.9, Monocytes (%) (Auto) 9.1, Eosinophils (%) (Auto) 6.2, Basophils (%) (Auto) 0.3, Neutrophils # (Auto) 4.15, Lymphocytes # (Auto) 1.20, Monocytes # (Auto) 0.58, Eosinophils # (Auto) 0.39, Basophils # (Auto) 0.02 10/13/16 20:50 Test 10/13/16 20:50 10/13/16 21:14 10/13/16 21:16 10/13/16 21:19 White Blood Count 6.34 K/uL (4.8-10.8) Red Blood Count 4.50 M/uL (4.2-5.4) Hemoglobin 12.9 g/dL (12.0-16.0) Hematocrit 39.4 % (37-47) Mean Corpuscular Volume 87.6 fL (80-100) Mean Corpuscular Hemoglobin 28.7 pg (25-34) Mean Corpuscular Hemoglobin Concent 32.7 g/dl (32-36) Platelet Count 262 K/uL (130-400) Mean Platelet Volume 9.7 fL (7.4-10.4) Neutrophils (%) (Auto) 65.5 % Lymphocytes (%) (Auto) 18.9 % Monocytes (%) (Auto) 9.1 % Eosinophils (%) (Auto) 6.2 % Basophils (%) (Auto) 0.3 % Neutrophils # (Auto) 4.15 K/uL (1.4-6.5) Lymphocytes # (Auto) 1.20 K/uL (1.2-3.4) Monocytes # (Auto) 0.58 K/uL (0.11-0.59) Eosinophils # (Auto) 0.39 K/uL (0-0.5) Basophils # (Auto) 0.02 K/uL (0-0.2) RDW Standard Deviation 51.0 fL (36.4-46.3) RDW Coefficient of Variation 15.8 % (11.5-14.5) Immature Granulocyte % (Auto) 0.0 % Immature Granulocyte # (Auto) 0.00 K/uL (0.00-0.02) Prothrombin Time 20.7 SECONDS (9.0-12.0) Prothromb Time International Ratio 1.9 (0.9-1.1) Activated Partial Thromboplast Time 38.0 SECONDS (21.0-31.0) Partial Thromboplastin Ratio 1.5 Est Creatinine Clear Calc Drug Dose 46.1 ml/min Estimated GFR () 54.9 Estimated GFR (Non- 47.4 BUN/Creatinine Ratio 18.1 (10-20) Calcium Level 9.5 mg/dl (8.5-10.1) Total Creatine Kinase 49 U/L (26-192) Creatine Kinase MB 1.7 ng/ml (0.5-3.6) Creatine Kinase MB Ratio 3.5 (0-3.0) Troponin I < 0.015 ng/ml (0-0.045) Bedside Hemoglobin 13.9 g/dl (12.0-16.0) Bedside Hematocrit 41 % (37-47) Bedside Sodium 135 mEq/L (135-144) Bedside Potassium 4.0 mEq/L (3.3-5.0) Bedside Chloride 96 mEq/L (101-112) Bedside Total CO2 29 mEq/l (24-31) Anion Gap 16.0 mmol/L (16-25) Bedside Blood Urea Nitrogen 20 mg/dl (7-18) Bedside Creatinine 1.0 mg/dl (0.6-1.3) Bedside Glucose (other) 169 mg/dl (70-99) Bedside Ionized Calcium (Samia) 1.19 mmol/l (1.12-1.32) Bedside Prothrombin Time INR 2.2 (0.9-1.1) Bedside Glucose 186 mg/dl (70-90) Test 10/13/16 22:55 Urine Color YELLOW Urine Appearance CLEAR (CLEAR) Urine pH 5.5 (4.5-7.5) Urine Specific [place] 1.010 (1.000-1.030) Urine Protein NEG (NEG) Urine Glucose (UA) NEG (NEG) Urine Ketones NEG (NEG) Urine Occult Blood 1+ (NEG) Urine Nitrite POS (NEG) Urine Bilirubin NEG (NEG) Urine Urobilinogen NEG (NEG) Urine Leukocyte Esterase NEG (NEG) Urine WBC (Auto) 0 /hpf (0-5) Urine RBC (Auto) 0-4 /hpf (0-4) Urine Hyaline Casts (Auto) 1-5 /lpf (0-5) Urine Epithelial Cells (Auto) 0-5 /lpf (0-5) Urine Bacteria (Auto) 4+ (NEG) Impression Acute on chronic left hemispheric stroke 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 There is evidence of thrombus within the left M1 segment of the middle cerebral artery. There is evidence of an evolving infarct within the left frontal lobe. An evolving infarct within the right cerebellar hemisphere has also been suggested on this patient's CT of the head. I am unable to corroborate a subacute right cerebellar stroke on this patient's examination, however, in light of her right hemiparesis. (Cerebellar strokes typically produce ipsilateral ataxia which I think could be confounded or masked by her right hemiparesis.) This patient has a history of atrial fibrillation. Her INR was 1.9 or 2.2. She was excluded from TPA. Plan Obtain a repeat CT of the head today to evaluate for suspected evolving infarct. If there is no evidence of hemorrhage on follow-up CT of the head would continue anticoagulation. Supportive medical care. PT/OT/speech therapy.
--- NOTE | 2016-10-14 12:07 | DIAGNOSTIC IMAGING REPORT ---
CT HEAD WITHOUT CONTRAST (CT) CLINICAL HISTORY: stroke COMPARISON STUDY: 10/13/2016 TECHNIQUE: Axial CT of the brain is performed from the vertex to the skull base. IV contrast was not administered for this examination. CT DOSE: 729.78 mGycm FINDINGS: There is an old infarct in the distribution left middle cerebral artery territory with involvement of portions the left frontal lobe, insular cortex, and left basal ganglia. There is no CT evidence of acute cortical infarction. There is no midline shift. There is no acute hemorrhage. There are patchy white matter hypodensities likely on a small vessel basis. There is no evidence of pathologic ventricular dilatation. There is no evidence of acute sinusitis IMPRESSION: 1. No acute intracranial findings 2. Old left MCA territory infarct. 3. No evidence of acute hemorrhage Electronically signed by: Pipo Varghese M.D. 10/14/2016 12:06 PM Dictated Date/Time: 10/14/2016 12:02 PM
[2016-10-14] MEDS ORDERED: NURSING VERBAL MED ORDER ONE (12:45)
[2016-10-14] MEDS: WARFARIN SOD 5 MG TAB PO SCH (16:26)
[2016-10-14] MEDS: DIGOXIN IV 125 MCG in SYRINGE 9.5 ML IV SCH (16:27)
[2016-10-15] MEDS: METOPROLOL TARTRATE 1 MG/ML VIAL IV. SCH ×6 (00:05→20:08)
[2016-10-15] MEDS: RANITIDINE IV 50 MG in DEXTROSE 5% 100ML 100 ML IV SCH ×3 (03:20→19:27)
[2016-10-15 03:29] VITALS: BP 164/74; PULSE 74; TEMP 36.6; O2SAT 97
[2016-10-15 06:00] LABS: BASO % 0.4 %; BASO ABS # 0.02 K/uL (0-0.2); COMPLETE YES; EOS % 6.1 %; HEMATOCRIT 36.7 % (37-47); IG% 0.2 %; LYMPH % 20.5 %; MEAN CELL VOLUME 87.4 fL (80-100); MEAN CORPUSCULAR HEMOGLOBIN 26.9 pg (25-34); MEAN CORPUSCULAR HGB CONC 30.8 g/dl (32-36); MEAN PLATELET VOLUME 9.2 fL (7.4-10.4); MONO % 9.1 %; NEUT % 63.7 %; PLATELET COUNT 228 K/uL (130-400); WHITE BLOOD COUNT 5.37 K/uL (4.8-10.8)
[2016-10-15 06:18] LABS: INR 1.9 (0.9-1.1); PARTIAL THROMBOPLASTIN RATIO 1.5; PROTHROMBIN TIME (PATIENT) 21.4 SECONDS (9.0-12.0)
[2016-10-15 06:42] LABS: BUN/CREATININE RATIO 11.4 (10-20); CALCIUM 8.3 mg/dl (8.5-10.1); CREATININE 0.79 mg/dl (0.60-1.20); MAGNESIUM 2.1 mg/dl (1.8-2.4); POTASSIUM 4.3 mmol/L (3.5-5.1)
[2016-10-15 08:07] VITALS: BP 156/76; PULSE 76; TEMP 36.9; O2SAT 97
[2016-10-15] MEDS: NSS + 20MEQ KCL 1000ML 1,000 ML IV SCH ×2 (08:22→19:27)
[2016-10-15 11:26] VITALS: BP 163/95; PULSE 70; TEMP 36.9; O2SAT 97
[2016-10-15 15:36] VITALS: BP 154/71; PULSE 82; TEMP 36.3; O2SAT 97
--- NOTE | 2016-10-15 16:27 | Progress Note ---
Subjective Date of Service: Oct 15, 2016. Subjective Pt evaluation today including: conversation w/ patient, conversation w/ family , physical exam, chart review, lab review, review of studies, review of inpatient medication list Reports improvement in weakness No issues swallowing Close to baseline per son Residual weakness from previous stroke Problem List Medical Problems: (1) Altered mental status Status: Acute (2) Stroke Status: Acute (3) UTI (lower urinary tract infection) Status: Acute Review of Systems Constitutional: + weakness, + fatigue, No fever, No chills, No sweats, No weight loss Eyes: No worsening of vision, No eye pain, No redness, No discharge ENT: No hearing loss, No unusual epistaxis, No nasal symptoms, No sore throat Respiratory: No cough, No sputum, No wheezing, No shortness of breath Cardiac: No chest pain, No orthopnea, No PND, No edema Abdomen: No pain, No nausea, No vomiting, No diarrhea Musculoskeletal: No joint pain, No muscle pain Female : No dysuria, No urinary frequency, No hematuria, No incontinence Neurologic: No memory loss, No paralysis, No weakness, No numbness/tingling Psychiatric: No depression symptoms, No anhedonism, No anxiety, No insomnia Endo: No fatigue, No excessive thirst, No excessive urination Objective Vital Signs Date Time Temp Pulse Resp B/P (MAP) Pulse Ox O2 Delivery O2 Flow Rate FiO2 10/15/16 15:36 36.3 82 16 154/71 (98) 97 Room Air 10/15/16 13:05 70 163/95 10/15/16 12:00 Room Air 10/15/16 11:26 36.9 70 18 163/95 (117) 97 Room Air 10/15/16 08:20 76 156/76 10/15/16 08:07 36.9 76 18 156/76 (102) 97 Room Air 10/15/16 08:00 Room Air 10/15/16 04:00 Room Air 10/15/16 03:29 36.6 74 19 164/74 (104) 97 Room Air 10/15/16 03:21 74 10/15/16 00:05 74 150/83 10/15/16 00:01 Room Air 10/14/16 23:30 36.4 74 16 150/83 (105) 98 Room Air 10/14/16 20:00 Room Air 10/14/16 19:59 112 156/80 10/14/16 19:42 36.6 75 18 156/80 (105) 96 Room Air 10/14/16 16:28 71 126/80 10/14/16 16:27 75 Physical Exam General Appearance: WD/WN, no apparent distress ENT: normal ENT inspection, hearing grossly normal, TMs normal, pharynx normal Neck: supple, no adenopathy, thyroid normal, no JVD Respiratory/Chest: chest non-tender, lungs clear, normal breath sounds, no respiratory distress Cardiovascular: regular rate, rhythm, no edema, no gallop, no JVD Abdomen: normal bowel sounds, non tender, soft, no organomegaly Extremities: normal range of motion, non-tender, normal inspection, no pedal edema Neurologic/Psychiatric: alert, normal mood/affect, + motor weakness (right sided [id number] noted), + disoriented Laboratory Results Last 24 Hours Test 10/15/16 05:42 White Blood Count 5.37 K/uL Red Blood Count 4.20 M/uL Hemoglobin 11.3 g/dL Hematocrit 36.7 % Mean Corpuscular Volume 87.4 fL Mean Corpuscular Hemoglobin 26.9 pg Mean Corpuscular Hemoglobin Concent 30.8 g/dl Platelet Count 228 K/uL Mean Platelet Volume 9.2 fL Neutrophils (%) (Auto) 63.7 % Lymphocytes (%) (Auto) 20.5 % Monocytes (%) (Auto) 9.1 % Eosinophils (%) (Auto) 6.1 % Basophils (%) (Auto) 0.4 % Neutrophils # (Auto) 3.42 K/uL Lymphocytes # (Auto) 1.10 K/uL Monocytes # (Auto) 0.49 K/uL Eosinophils # (Auto) 0.33 K/uL Basophils # (Auto) 0.02 K/uL RDW Standard Deviation 50.2 fL RDW Coefficient of Variation 15.6 % Immature Granulocyte % (Auto) 0.2 % Immature Granulocyte # (Auto) 0.01 K/uL Prothrombin Time 21.4 SECONDS Prothromb Time International Ratio 1.9 Activated Partial Thromboplast Time 38.1 SECONDS Partial Thromboplastin Ratio 1.5 Sodium Level 138 mmol/L Potassium Level 4.3 mmol/L Chloride Level 102 mmol/L Carbon Dioxide Level 29 mmol/L Anion Gap 7.0 mmol/L Blood Urea Nitrogen 9 mg/dl Creatinine 0.79 mg/dl Est Creatinine Clear Calc Drug Dose 61.6 ml/min Estimated GFR () 81.9 Estimated GFR (Non- 70.7 BUN/Creatinine Ratio 11.4 Random Glucose 92 mg/dl Calcium Level 8.3 mg/dl Magnesium Level 2.1 mg/dl Total Bilirubin 0.5 mg/dl Direct Bilirubin 0.2 mg/dl Aspartate Amino Transf (AST/SGOT) 15 U/L Alanine Aminotransferase (ALT/SGPT) 18 U/L Alkaline Phosphatase 108 U/L Total Protein 7.3 gm/dl Albumin 3.0 gm/dl Assessment and Plan 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 Admitted to tele Repeat CT head no worsening/evolving stroke 2D ECHO pending Able to eat now PT/OT consulted Can return to [facility] soon Atrial fibrillation--changed to digoxin 0.125 mg by mouth every morning to IV every morning. Discontinue diltiazem and metoprolol tartrate. Place on Lopressor 5 mg IV every 4 hours with hold parameters. GERD--change ranitidine by mouth to IV. Hypercholesterolemia-- hold simvastatin. Depression/dementia-- hold bupropion and Namenda.
[2016-10-15] MEDS: DIGOXIN IV 125 MCG in SYRINGE 9.5 ML IV SCH (17:01)
[2016-10-15] MEDS: WARFARIN SOD 5 MG TAB PO SCH (17:02)
[2016-10-15 19:42] VITALS: BP 160/79; PULSE 95; TEMP 37; O2SAT 93
[2016-10-15] MEDS ORDERED: GLUCOSE 10 TABS/TUBE PO PRN (21:45)
[2016-10-15] MEDS ORDERED: GLUCAGON FOR INJ 1 MG VIAL SQ PRN (21:45)
[2016-10-15] MEDS ORDERED: GLUCOSE 40% GEL 15 GM TUBE PO PRN (21:45)
[2016-10-15] MEDS ORDERED: DEXTROSE 50% 50 ML SYR IV PRN (21:45)
[2016-10-15 23:20] VITALS: BP 169/86; PULSE 82; TEMP 36.8; O2SAT 96
[2016-10-16] MEDS: METOPROLOL TARTRATE 1 MG/ML VIAL IV. SCH ×5 (00:15→15:01)
[2016-10-16] MEDS: RANITIDINE IV 50 MG in DEXTROSE 5% 100ML 100 ML IV SCH ×2 (02:45→12:41)
[2016-10-16 04:02] VITALS: BP 167/92; PULSE 69; TEMP 36.5; O2SAT 96
[2016-10-16] MEDS: NSS + 20MEQ KCL 1000ML 1,000 ML IV SCH (04:51)
[2016-10-16] MEDS: INSULIN ASPART 100 UNITS/ML 3 ML PEN SC SCH ×2 (07:00→11:00)
[2016-10-16 07:54] LABS: BASO % 0.2 %; BASO ABS # 0.01 K/uL (0-0.2); COMPLETE YES; EOS % 6.2 %; HEMATOCRIT 41.8 % (37-47); IG% 0.2 %; LYMPH % 22.6 %; LYMPH ABS # 1.16 K/uL (1.2-3.4); MEAN CELL VOLUME 86.5 fL (80-100); MEAN CORPUSCULAR HEMOGLOBIN 26.3 pg (25-34); MEAN CORPUSCULAR HGB CONC 30.4 g/dl (32-36); MEAN PLATELET VOLUME 9.1 fL (7.4-10.4); MONO % 8.6 %; NEUT % 62.2 %; PLATELET COUNT 252 K/uL (130-400); RED BLOOD COUNT 4.83 M/uL (4.2-5.4); WHITE BLOOD COUNT 5.14 K/uL (4.8-10.8)
[2016-10-16 08:00] VITALS: BP 156/80; PULSE 83; TEMP 36.5; O2SAT 97
[2016-10-16 08:07] LABS: INR 1.9 (0.9-1.1); PARTIAL THROMBOPLASTIN RATIO 1.5; PROTHROMBIN TIME (PATIENT) 21.3 SECONDS (9.0-12.0)
[2016-10-16 08:30] LABS: BUN/CREATININE RATIO 12.9 (10-20); CREATININE 0.83 mg/dl (0.60-1.20); POTASSIUM 4.3 mmol/L (3.5-5.1)
[2016-10-16 08:35] LABS: CALCIUM 8.6 mg/dl (8.5-10.1)
[2016-10-16 11:37] VITALS: BP 164/88; PULSE 88; TEMP 36.8; O2SAT 94
--- NOTE | 2016-10-16 12:03 | Discharge Instructions ---
Discharge Instructions Date of Service Oct 16, 2016. Admission Reason for Admission: Change In Mental Status Discharge Discharge Diagnosis / Problem: CVA Discharge Goals Goal(s): Decrease discomfort, Improve function, Increase independence, Improve disease control, Learn about illness, Diagnostic testing, Therapeutic intervention, Prevent Disease Progression Activity Recommendations Activity Limitations: resume your previous activity Exercise/Sports Limitations: as tolerated . Instructions / Follow-Up Instructions / Follow-Up Patient noted to have acute stroke Can continue back on coumadin as no bleeding stroke identified Will need to continue physical therapy at [facility] No changes made in medications Stable for discharge Please follow up with PCP at [facility] w/in 1 week Risk Factors for Stroke: You can reduce your chances of stroke by working with your medical provider to adopt a healthy lifestyle. Some specific ways to lower your chance of stroke are: * If you are a smoker, now is the time to stop smoking cigarettes * If you are diabetic, improve the control of your blood sugars * Avoid excessive amounts of alcohol * Control high blood pressure * Lose weight if you are overweight * Be sure to lead an active lifestyle * Eat a healthy diet low in salt, cholesterol and fat You should know about other risk factors for stroke that you are unable to control. These include: * Age 55 years or older * Male gender * Certain racial groups: , or / * Family History of Stroke, Mini stroke or Heart Attack * Sickle Cell Disease Follow Up: It is important for you to keep your follow up appointments with your medical provider. Current Hospital Diet Patient's current hospital diet: Regular Diet Discharge Diet Recommended Diet: Regular Diet Pending Studies Studies pending at discharge: no Medical Emergencies . Who to Call and When: Medical Emergencies: Call 911 immediately if you experience any of the following warning signs and symptoms of Stroke: * Sudden numbness or weakness of the face, arm or leg, especially on one side of the body * Sudden confusion, trouble speaking or understanding * Sudden trouble seeing in one or both eyes * Sudden trouble walking, dizziness, loss of balance or coordination * Sudden severe headache with no cause Do not delay calling 911 if you experience any warning signs or symptoms of a stroke. Delay in seeking medical attention may affect what treatments can be given to you. . Non-Emergent Contact Non-Emergency issues call your: Primary Care Provider Call Non-Emergent contact if: you have a fever, your pain is worsening . . "Provider Documentation" section prepared by Ankur Pichardo. . Stroke Core Measures Reason no t-PA for Stroke: Treatment not indicated Reason no antithrom by day 2: Contraindicated Reason no antithrom at D/C: Treatment provided - N/A Reason no statin at D/C: Treatment provided - N/A Reason no anticoag w/a fib: Treatment provided - N/A VTE Core Measure Inpt VTE Proph given/why not?: Warfarin (Coumadin), SCD's
--- NOTE | 2016-10-16 13:31 | Discharge Summary ---
Discharge Summary Date of Service Oct 16, 2016. Discharge Summary Admission Date: Oct 13, 2016 at 23:54 Discharge Date: Oct 16, 2016 Discharge Disposition: nursing home facility ([facility]) Principal Diagnosis: CVA Immunizations: Have You Had Influenza Vaccine: N/A Influenza Vaccine Date: Aug 18, 2008 History of Tetanus Vaccine?: Unknown History of Pneumococcal: Unknown Pneumococcal Date: Jun 21, 2012 History of Hepatitis B Vaccine: Unknown Consultations: Neurology Medication Reconciliation Continued Medications: Acetaminophen (Tylenol) 325 Mg Tab 650 MG PO Q6H PRN for Pain or Fever, TAB NTE 3GM APAP/24HRS Bupropion (Wellbutrin) 75 Mg Tab 75 MG PO QAM, TAB Digoxin (Lanoxin) 0.125 Mg Tab 0.125 MG PO QAM, TAB Diltiazem Hcl (Cardizem) 120 Mg Tab 120 MG PO QAM Ferrous Sulfate (Ferrous Sulfate) 325 Mg Tab 325 MG PO QAM Magnesium Chloride (Slow-Mag Tab) 64 Mg Tabcr 64 MG PO BID, 0 Refills Memantine (Namenda) 10 Mg Tab 10 MG PO BID, TAB Metoprolol Tartrate (Lopressor) (Lopressor) 25 Mg Tab 25 MG PO BID, TAB Potassium Ext Rel (Klor-Con) 10 Meq Tabcr 10 MEQ PO BID, TAB Ranitidine (Zantac) 150 Mg Tab 150 MG PO HS, TAB Sennosides-Docusate Sodium (Senna Plus) 1 Tab Tab 1 TAB PO BID Simvastatin (Zocor) 10 Mg Tab 10 MG PO QPM, TAB Sodium Chloride (Sodium Chloride) 1 Gm Tab 2 GM PO TID Warfarin Sodium (Coumadin) 5 Mg Tab 5 MG PO DAILY, TAB Discharge Exam Unable to obtain due to dementia Physical Exam: General Appearance: WD/WN, no apparent distress Eyes: normal inspection, PERRL, EOMI, sclerae normal Neck: supple, no adenopathy, thyroid normal, no JVD Respiratory/Chest: chest non-tender, lungs clear, normal breath sounds, no respiratory distress Cardiovascular: regular rate, rhythm, no edema, no gallop, no JVD Abdomen / GI: normal bowel sounds, non tender, soft, no organomegaly Extremities: normal inspection, no calf tenderness, normal capillary refill , no pedal edema Neurologic/Psychiatric: alert, normal mood/affect, + motor weakness ( decreased muscle strenght in bilateral ext), + disoriented Hospital Course 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 Admitted to tele No TPA indicated Repeat CT head no worsening/evolving stroke Neurology consulted, can restart on coumadin as no hemorrhagic stroke identified on repeat CT head At baseline Able to eat now PT/OT consulted Can return to [facility] Atrial fibrillation--changed to digoxin 0.125 mg by mouth every morning to IV every morning. Discontinue diltiazem and metoprolol tartrate. Place on Lopressor 5 mg IV every 4 hours with hold parameters. INR minimally subtherapeutic on discharge at 1.9 GERD--change ranitidine by mouth to IV. Hypercholesterolemia-- hold simvastatin. Depression/dementia-- hold bupropion and Namenda. Total Time Spent: Greater than 30 minutes This includes examination of the patient, discharge planning, medication reconciliation, and communication with other providers. Discharge Instructions Please refer to the electronic Patient Visit Report (Discharge Instructions) for additional information.
[2016-10-16] MEDS: WARFARIN SOD 5 MG TAB PO SCH (14:58)
[2016-10-16] MEDS: DIGOXIN IV 125 MCG in SYRINGE 9.5 ML IV SCH (15:01)
[2016-10-16 15:16] VITALS: BP 151/82; PULSE 81; TEMP 36.7; O2SAT 95
== END 2016-10-16 15:30 | DRG 64 ==
LOC: C.ED 21:17 → C.2T 23:54 → ENRESERV 10-14 00:04
PROVIDERS: ADMIT Hospitalist; ATTEND Hospitalist
DX: I63.8 Other cerebral infarction (principal); J69.0 Pneumonitis due to inhalation of food and vomit; N39.0 Urinary tract infection, site not specified; R47.01 Aphasia; K21.9 Gastro-esophageal reflux disease without esophagitis; E78.00 Pure hypercholesterolemia, unspecified; F32.9 Major depressive disorder, single episode, unspecified; I48.91 Unspecified atrial fibrillation; Z79.01 Long term (current) use of anticoagulants; Z79.899 Other long term (current) drug therapy

== ENCOUNTER → 2016-10-27 | Outpatient (CLI) | payer OTHER ==
[~2016-10-27] MED LIST changes: +ACET-1311 PO; +BUPR75TA20 PO; -CLC100X PO; -METO-596 PO; +METO25TA56 PO; +SENN1TAB65 PO; +SIMV10TA2 PO; -SIMV20TA2 PO; +SODI1TAB PO; -WARF4TAB PO; +ZNTT/150 PO
--- NOTE | 2016-10-27 12:15 | DIAGNOSTIC IMAGING REPORT ---
CT SCAN OF THE BRAIN WITHOUT IV CONTRAST CLINICAL HISTORY: Change in mental status. COMPARISON STUDY: CT of the brain dated 10/14/2016. TECHNIQUE: Unenhanced axial CT scan of the brain is performed from the vertex to the skull base. CT DOSE: 537.48 mGy.cm FINDINGS: Brain parenchyma: There are age-related involutional changes noting moderate patchy subcortical and periventricular microangiopathic change. There is no hemorrhage, mass effect, or evidence of acute territorial ischemia by CT criteria. There is evidence of a remote left MCA territory infarct which involves the basal ganglia. Carmona-white matter is preserved. No extra-axial fluid collection is seen. Ventricles, sulci, cisterns: Prominent secondary to involutional change. Intracranial vasculature: There is atherosclerotic calcification of the cavernous carotid and vertebral arteries. Calvarium: Unremarkable. Sinuses and mastoids: Mucosal thickening is noted within a right ethmoid sinus. The remaining visualized paranasal sinuses are clear. The mastoid air cells are well pneumatized. Orbits: The bony orbits are grossly intact. IMPRESSION: Senescent changes and remote infarct as above. There is no hemorrhage, mass effect, or evidence of acute territorial ischemia by CT criteria. Electronically signed by: Daryl Miranda M.D. 10/27/2016 12:13 PM Dictated Date/Time: 10/27/2016 12:11 PM
== END | disposition home or self-care (01) ==
LOC: C.CTS 11:37
PROVIDERS: ATTEND Nurse Practitioner Adult Health
DX: I48.91 Unspecified atrial fibrillation (principal); R41.82 Altered mental status, unspecified; R60.1 Generalized edema

== ENCOUNTER → 2016-11-15 | Outpatient (CLI) | payer OTHER ==
[2016-11-15 10:21] LABS: INR 2.5 (0.9-1.1); PROTHROMBIN TIME (PATIENT) 27.3 SECONDS (9.0-12.0)
== END ==
LOC: C.LABCC 08:55 → EDSTATUS 11-29 12:00
PROVIDERS: ATTEND Internal Medicine
DX: I48.91 Unspecified atrial fibrillation (principal)

== ENCOUNTER → 2016-11-16 | Outpatient (CLI) | payer OTHER ==
[2016-11-16 09:55] LABS: BLOOD UREA NITROGEN 18 mg/dl (7-18); BUN/CREATININE RATIO 19.9 (10-20); CALCIUM 8.6 mg/dl (8.5-10.1); CARBON DIOXIDE 29 mmol/L (21-32); CHLORIDE 106 mmol/L (98-107); GLUCOSE 89 mg/dl (70-99); POTASSIUM 4.4 mmol/L (3.5-5.1); SODIUM 139 mmol/L (136-145)
== END ==
LOC: C.LABCC 09:09 → EDSTATUS 11-29 11:58
PROVIDERS: ATTEND Internal Medicine
DX: I48.91 Unspecified atrial fibrillation (principal); E87.1 Hypo-osmolality and hyponatremia

== ENCOUNTER → 2016-11-30 | Outpatient (CLI) | payer OTHER ==
[2016-11-30 08:42] LABS: INR 2.7 (0.9-1.1); PROTHROMBIN TIME (PATIENT) 30.1 SECONDS (9.0-12.0)
== END ==
LOC: C.LABCC 07:43
PROVIDERS: ATTEND Internal Medicine
DX: I48.91 Unspecified atrial fibrillation (principal)

== ENCOUNTER → 2016-12-09 | Outpatient (CLI) | payer OTHER ==
[2016-12-09 17:06] LABS: URINE APPEARANCE CLEAR (CLEAR); URINE BILIRUBIN NEG (NEG); URINE COLOR YELLOW; URINE NITRITE POS (NEG); URINE PH 5.5 (4.5-7.5); UROBILINOGEN NEG (NEG)
[2016-12-09 17:28] LABS: MANUAL MICROSCOPIC REQUIRED? NO; REVIEW REQ? NO
== END ==
LOC: C.LABSPEC 16:14
PROVIDERS: ATTEND Internal Medicine
DX: R41.0 Disorientation, unspecified (principal)

== ENCOUNTER → 2016-12-12 | Outpatient (CLI) | payer OTHER ==
[2016-12-12 10:25] LABS: THYROID STIMULATING HORMONE 2.4 uIu/ml (0.300-4.500)
== END ==
LOC: C.LABCC 09:07
PROVIDERS: ATTEND Internal Medicine
DX: E03.9 Hypothyroidism, unspecified (principal)

== ENCOUNTER → 2016-12-29 | Outpatient (CLI) | payer OTHER | LOC: C.LABCC 08:21 | PROVIDERS: ATTEND Internal Medicine | DX: E03.9 Hypothyroidism, unspecified (principal) ==

== ENCOUNTER → 2016-12-30 | Outpatient (CLI) | payer OTHER ==
[2016-12-30 08:52] LABS: INR 2.1 (0.9-1.1); PROTHROMBIN TIME (PATIENT) 22.8 SECONDS (9.0-12.0)
== END ==
LOC: C.LABCC 07:40
PROVIDERS: ATTEND Internal Medicine
DX: I48.91 Unspecified atrial fibrillation (principal)

== ENCOUNTER → 2017-01-17 | Outpatient (CLI) | payer OTHER ==
[2017-01-17 08:32] LABS: INR 1.6 (0.9-1.1); PROTHROMBIN TIME (PATIENT) 17.7 SECONDS (9.0-12.0)
== END ==
LOC: C.LABCC 07:57
PROVIDERS: ATTEND Internal Medicine
DX: I48.91 Unspecified atrial fibrillation (principal)

== ENCOUNTER → 2017-02-01 | Outpatient (CLI) | payer OTHER ==
[2017-02-01 09:06] LABS: INR 1.9 (0.9-1.1); PROTHROMBIN TIME (PATIENT) 20.9 SECONDS (9.0-12.0)
--- NOTE | 2017-02-05 12:59 | EDITING REQUIRED CODING QUERY ---
TREATMENT RENDERED WITHOUT A DIAGNOSIS To promote full compliance with coding requirements relating to patient care, physician participation is requested in all cases of forms designer uncertainty. Please assist us with providing a diagnosis/symptom for the test(s) below: A diagnosis/symptom was not documented on your Order. A valid diagnosis/symptom is required to bill all insurances. Please remember that we are unable to code a diagnosis of rule out, probable, possible, questionable, or suspected. Tests that require a diagnosis from 02/01/17: * PT/INR DIAGNOSIS: Provider Signature: Date: Thank you Melissa Justice [employer] Once completed, please kindly fax back to [phone] For questions please call [phone]
== END ==
LOC: C.LABCC 08:39
PROVIDERS: ATTEND Internal Medicine
DX: I48.91 Unspecified atrial fibrillation (principal)

== ENCOUNTER → 2017-03-14 | Outpatient (CLI) | payer OTHER ==
[2017-03-14 08:27] LABS: INR 2.4 (0.9-1.1)
== END ==
LOC: C.LABCC 07:49
PROVIDERS: ATTEND Internal Medicine
DX: I48.91 Unspecified atrial fibrillation (principal)

== ENCOUNTER → 2017-03-22 | Outpatient (CLI) | payer OTHER ==
[2017-03-22 08:48] LABS: ALT/SGPT 21 U/L (12-78); BLOOD UREA NITROGEN 16 mg/dl (7-18); BUN/CREATININE RATIO 20.1 (10-20); CALCIUM 8.6 mg/dl (8.5-10.1); CARBON DIOXIDE 25 mmol/L (21-32); CHLORIDE 101 mmol/L (98-107); CHOLESTEROL 123 mg/dl (0-200); GLUCOSE 99 mg/dl (70-99); POTASSIUM 4.4 mmol/L (3.5-5.1); SODIUM 134 mmol/L (136-145)
[2017-03-22 08:58] LABS: ALB/GLOB RATIO 0.7 (0.9-2); ALKALINE PHOSPHATASE 103 U/L (45-117); AST/SGOT 17 U/L (15-37); CHOLESTEROL/HDL RATIO 1.9; HDL CHOLESTEROL 64 mg/dl; LDL CHOLESTEROL CALCULATED 51 mg/dl; TRIGLYCERIDES 39 mg/dl (0-150); VERY LOW DENSITY LIPOPROT CALC 8 mg/dl
== END ==
LOC: C.LABCC 08:19
PROVIDERS: ATTEND Internal Medicine
DX: E78.5 Hyperlipidemia, unspecified (principal); E03.9 Hypothyroidism, unspecified; I48.91 Unspecified atrial fibrillation

== ENCOUNTER → 2017-03-27 | Outpatient (CLI) | payer OTHER ==
[2017-03-27 09:06] LABS: INR 1.8 (0.9-1.1); PROTHROMBIN TIME (PATIENT) 20.3 SECONDS (9.0-12.0)
== END ==
LOC: C.PAPS 08:19
PROVIDERS: ATTEND Internal Medicine
DX: I48.91 Unspecified atrial fibrillation (principal)

== ENCOUNTER → 2017-03-29 | Outpatient (CLI) | payer OTHER ==
[2017-03-30 00:20] LABS: MANUAL MICROSCOPIC REQUIRED? NO; REVIEW REQ? NO; URINE APPEARANCE CLEAR (CLEAR); URINE BILIRUBIN NEG (NEG); URINE COLOR YELLOW; URINE NITRITE NEG (NEG); URINE SPECIFIC GRAVITY 1.017 (1.000-1.030); UROBILINOGEN NEG (NEG)
== END ==
LOC: C.LABCC 09:50
PROVIDERS: ATTEND Internal Medicine
DX: R53.83 Other fatigue (principal); M79.1 Myalgia

== ENCOUNTER → 2017-03-30 | Outpatient (CLI) | payer OTHER ==
[2017-03-30 08:28] LABS: HEMATOCRIT 35.4 % (37-47); MEAN CELL VOLUME 88.1 fL (80-100); MEAN CORPUSCULAR HEMOGLOBIN 27.9 pg (25-34); MEAN CORPUSCULAR HGB CONC 31.6 g/dl (32-36); MEAN PLATELET VOLUME 10.4 fL (7.4-10.4); PLATELET COUNT 222 K/uL (130-400); RED BLOOD COUNT 4.02 M/uL (4.2-5.4); WHITE BLOOD COUNT 5.41 K/uL (4.8-10.8)
[2017-03-30 08:34] LABS: ALT/SGPT 17 U/L (12-78); BLOOD UREA NITROGEN 19 mg/dl (7-18); BUN/CREATININE RATIO 24.1 (10-20); CALCIUM 8.4 mg/dl (8.5-10.1); CARBON DIOXIDE 26 mmol/L (21-32); CHLORIDE 101 mmol/L (98-107); CREATININE 0.81 mg/dl (0.60-1.20); GLUCOSE 97 mg/dl (70-99); POTASSIUM 4.1 mmol/L (3.5-5.1); SODIUM 136 mmol/L (136-145)
[2017-03-30 08:45] LABS: ALB/GLOB RATIO 0.7 (0.9-2); ALKALINE PHOSPHATASE 99 U/L (45-117); AST/SGOT 14 U/L (15-37)
== END ==
LOC: C.LABCC 07:51
PROVIDERS: ATTEND Internal Medicine
DX: R53.83 Other fatigue (principal); M79.1 Myalgia

== ENCOUNTER → 2017-04-03 | Outpatient (CLI) | payer OTHER ==
[2017-04-03 09:08] LABS: INR 2.6 (0.9-1.1); PROTHROMBIN TIME (PATIENT) 29.1 SECONDS (9.0-12.0)
== END ==
LOC: C.LABCC 08:24
DX: I48.91 Unspecified atrial fibrillation (principal)

== ENCOUNTER → 2017-04-11 | Outpatient (CLI) | payer OTHER ==
[2017-04-11 08:54] LABS: INR 3.7 (0.9-1.1); PROTHROMBIN TIME (PATIENT) 38.2 SECONDS (9.0-12.0)
== END ==
LOC: C.LABCC 08:22
PROVIDERS: ATTEND Internal Medicine
DX: I48.91 Unspecified atrial fibrillation (principal)

== ENCOUNTER → 2017-04-19 | Outpatient (CLI) | payer OTHER ==
[~2017-04-19] MED LIST changes: +ACET-1256 PO; +AMOX500T PO; +ATR25 PO; +AZAT50TA22 PO; +DICL250C73 PO; +DILT120T3 PO; +DOXY100C76 PO; +HYDR-5688 PO; +INSU100I; +LEVO50TA6 PO; +LNX125 PO; +LVMI SQ; +NIAC500T85 PO; +NVLG SQ; +OXYC-90 PO; +POTA10CA28 PO; +PRED-301 PO; +RANI150T85 PO; +RIVA1TAB4 PO; +SLWMEC PO; +VALA500T60 PO; -ZNTT/150 PO; +[UNRECOGNIZED DRUG - CODE] OPL
[2017-04-19 09:27] LABS: INR 1.7 (0.9-1.1)
== END ==
LOC: C.LABCC 09:02
PROVIDERS: ATTEND Internal Medicine
DX: I48.91 Unspecified atrial fibrillation (principal)

== ENCOUNTER → 2017-04-26 | Outpatient (CLI) | payer OTHER | LOC: C.LABCC 09:05 | PROVIDERS: ATTEND Internal Medicine | DX: I48.91 Unspecified atrial fibrillation (principal) ==

== ENCOUNTER → 2017-05-04 | Outpatient (CLI) | payer OTHER | LOC: C.LABCC 07:52 | PROVIDERS: ATTEND Internal Medicine | DX: I48.91 Unspecified atrial fibrillation (principal) ==

== ENCOUNTER → 2017-05-08 | Outpatient (CLI) | payer OTHER ==
[~2017-05-08] MED LIST changes: -ACET-1256 PO; -AMOX500T PO; -ATR25 PO; -AZAT50TA22 PO; -DICL250C73 PO; -DILT120T3 PO; -DOXY100C76 PO; -HYDR-5688 PO; -INSU100I; -LEVO50TA6 PO; -LNX125 PO; -LVMI SQ; -NIAC500T85 PO; -NVLG SQ; -OXYC-90 PO; -POTA10CA28 PO; -PRED-301 PO; -RANI150T85 PO; -RIVA1TAB4 PO; -SLWMEC PO; -VALA500T60 PO; +ZNTT/150 PO; -[UNRECOGNIZED DRUG - CODE] OPL
[2017-05-08 08:29] LABS: INR 2.2 (0.9-1.1)
== END ==
LOC: C.LABCC 08:02
PROVIDERS: ATTEND Internal Medicine
DX: I48.91 Unspecified atrial fibrillation (principal)

== ENCOUNTER → 2017-05-12 | Outpatient (CLI) | payer OTHER | LOC: C.LABCC 08:44 | PROVIDERS: ATTEND Internal Medicine | DX: I48.91 Unspecified atrial fibrillation (principal) ==

== ENCOUNTER → 2017-05-22 | Outpatient (CLI) | payer OTHER ==
[2017-05-22 09:10] LABS: INR 1.8 (0.9-1.1)
== END ==
LOC: C.LABCC 08:35
PROVIDERS: ATTEND Internal Medicine
DX: I48.91 Unspecified atrial fibrillation (principal)

== ENCOUNTER → 2017-05-30 | Outpatient (CLI) | payer OTHER ==
[2017-05-30 08:35] LABS: INR 2.6 (0.9-1.1)
== END ==
LOC: C.LABCC 07:44
PROVIDERS: ATTEND Internal Medicine
DX: I48.91 Unspecified atrial fibrillation (principal)

== ENCOUNTER → 2017-06-14 | Outpatient (CLI) | payer OTHER ==
[~2017-06-14] MED LIST changes: +RANI150T85 PO; -ZNTT/150 PO
[2017-06-14 10:07] LABS: INR 1.9 (0.9-1.1)
== END ==
LOC: C.LABCC 09:29
DX: I48.91 Unspecified atrial fibrillation (principal)

== ENCOUNTER → 2017-06-19 | Outpatient (CLI) | payer OTHER ==
[2017-06-19 13:06] LABS: INR 3.7 (0.9-1.1)
== END ==
LOC: C.LABCC 11:47
PROVIDERS: ATTEND Internal Medicine
DX: I48.91 Unspecified atrial fibrillation (principal)

== ENCOUNTER → 2017-06-23 | Outpatient (CLI) | payer OTHER ==
[2017-06-23 08:38] LABS: INR 2.4 (0.9-1.1)
== END ==
LOC: C.LABCC 07:53
PROVIDERS: ATTEND Internal Medicine
DX: I48.91 Unspecified atrial fibrillation (principal)

== ENCOUNTER → 2017-07-10 | Outpatient (CLI) | payer OTHER | LOC: C.LABCC 08:51 | PROVIDERS: ATTEND Internal Medicine | DX: R31.9 Hematuria, unspecified (principal) ==

== ENCOUNTER → 2017-07-10 | Outpatient (CLI) | payer OTHER ==
[2017-07-10 09:23] LABS: INR 3.6 (0.9-1.1)
== END ==
LOC: C.LABCC 08:52
PROVIDERS: ATTEND Internal Medicine
DX: I48.91 Unspecified atrial fibrillation (principal)

== ENCOUNTER → 2017-07-14 | Outpatient (CLI) | payer OTHER ==
[2017-07-14 08:38] LABS: INR 1.7 (0.9-1.1)
== END ==
LOC: C.LABCC 07:49
PROVIDERS: ATTEND Internal Medicine
DX: I48.91 Unspecified atrial fibrillation (principal)

== ENCOUNTER → 2017-07-19 | Outpatient (CLI) | payer OTHER ==
[2017-07-19 08:39] LABS: INR 1.4 (0.9-1.1)
== END ==
LOC: C.LABCC 08:17
PROVIDERS: ATTEND Internal Medicine
DX: I48.91 Unspecified atrial fibrillation (principal)

== ENCOUNTER → 2017-07-24 | Outpatient (CLI) | payer OTHER ==
[2017-07-24 08:44] LABS: INR 2.7 (0.9-1.1)
== END ==
LOC: C.LABCC 07:46
PROVIDERS: ATTEND Internal Medicine
DX: I48.91 Unspecified atrial fibrillation (principal)

== ENCOUNTER → 2017-08-03 | Outpatient (CLI) | payer OTHER ==
[2017-08-03 09:40] LABS: INR 3.8 (0.9-1.1)
== END ==
LOC: C.LABCC 07:42
PROVIDERS: ATTEND Internal Medicine
DX: I48.91 Unspecified atrial fibrillation (principal)

== ENCOUNTER → 2017-08-07 | Outpatient (CLI) | payer OTHER ==
[2017-08-07 10:03] LABS: INR 2.6 (0.9-1.1)
--- NOTE | 2017-08-16 14:52 | CODING QUERY NO DIAGNOSIS ---
TREATMENT RENDERED WITHOUT A DIAGNOSIS 35 To promote full compliance with coding requirements relating to patient care, physician participation is requested in all cases of welder gas automatic uncertainty. Please assist us with providing a diagnosis/symptom for the test(s) below: A diagnosis/symptom was not documented on your Order. A valid diagnosis/symptom is required to bill all insurances. Please remember that we are unable to code a diagnosis of rule out, probable, possible, questionable, or suspected. DOS 08/07/17 Tests that require a diagnosis: * PT/INR DIAGNOSIS: Provider Signature: Date: Thank you Corie Alejo [employer] Information Management Once completed, please kindly fax back to [phone] For questions please call [phone]
== END ==
LOC: C.LABCC 09:11
PROVIDERS: ATTEND Internal Medicine
DX: I48.91 Unspecified atrial fibrillation (principal)

== ENCOUNTER → 2017-08-15 | Outpatient (CLI) | payer OTHER ==
[2017-08-15 09:33] LABS: INR 3.2 (0.9-1.1)
== END ==
LOC: C.LABCC 08:42
PROVIDERS: ATTEND Internal Medicine
DX: I48.91 Unspecified atrial fibrillation (principal)

== ENCOUNTER → 2017-08-18 | Outpatient (CLI) | payer OTHER ==
[2017-08-18 07:54] LABS: BASO % 0.1 %; BASO ABS # 0.01 K/uL (0-0.2); EOS % 23.8 %; EOS ABS # 2.38 K/uL (0-0.5); HEMATOCRIT 37.6 % (37-47); HEMOGLOBIN 12.3 g/dL (12.0-16.0); IG# 0.03 K/uL (0.00-0.02); LYMPH % 13.9 %; LYMPH ABS # 1.39 K/uL (1.2-3.4); MEAN CELL VOLUME 91.9 fL (80-100); MEAN CORPUSCULAR HEMOGLOBIN 30.1 pg (25-34); MEAN CORPUSCULAR HGB CONC 32.7 g/dl (32-36); MEAN PLATELET VOLUME 9.2 fL (7.4-10.4); MONO % 6.5 %; MONO ABS # 0.65 K/uL (0.11-0.59); NEUT % 55.4 %; NEUT ABS # 5.56 K/uL (1.4-6.5); PLATELET COUNT 310 K/uL (130-400); RED CELL DISTRIBUTION WIDTH CV 17.6 % (11.5-14.5); RED CELL DISTRIBUTION WIDTH SD 59.7 fL (36.4-46.3); WHITE BLOOD COUNT 10.02 K/uL (4.8-10.8)
[2017-08-18 08:04] LABS: ALBUMIN 2.7 gm/dl (3.4-5.0); ALT/SGPT 15 U/L (12-78); AST/SGOT 12 U/L (15-37); BLOOD UREA NITROGEN 21 mg/dl (7-18); CALCIUM 8.9 mg/dl (8.5-10.1); CARBON DIOXIDE 22 mmol/L (21-32); CREATININE 0.96 mg/dl (0.60-1.20); GLUCOSE 114 mg/dl (70-99); POTASSIUM 3.9 mmol/L (3.5-5.1); SODIUM 140 mmol/L (136-145)
[2017-08-18 08:07] LABS: ALKALINE PHOSPHATASE 56 U/L (45-117); TOTAL PROTEIN 6.1 gm/dl (6.4-8.2)
== END ==
LOC: C.LABCC 07:41
PROVIDERS: ATTEND Internal Medicine
DX: L12.0 Bullous pemphigoid (principal)

== ENCOUNTER → 2017-08-22 | Outpatient (CLI) | payer OTHER ==
[2017-08-22 08:50] LABS: INR 7.1 (0.9-1.1)
== END ==
LOC: C.LABCC 07:43
PROVIDERS: ATTEND Internal Medicine
DX: I48.91 Unspecified atrial fibrillation (principal)

== ENCOUNTER → 2017-08-23 | Outpatient (CLI) | payer OTHER ==
[2017-08-23 08:56] LABS: INR 2.3 (0.9-1.1)
== END ==
LOC: C.LABCC 08:33
PROVIDERS: ATTEND Internal Medicine
DX: I48.91 Unspecified atrial fibrillation (principal)

== ENCOUNTER → 2017-08-24 | Outpatient (CLI) | payer OTHER ==
[2017-08-24 08:48] LABS: INR 1.6 (0.9-1.1)
== END ==
LOC: C.LABCC 08:23
PROVIDERS: ATTEND Internal Medicine
DX: I48.91 Unspecified atrial fibrillation (principal)

== ENCOUNTER → 2017-08-31 | Outpatient (CLI) | payer OTHER ==
[2017-08-31 08:19] LABS: INR 2.4 (0.9-1.1)
== END ==
LOC: C.LABCC 07:50
PROVIDERS: ATTEND Internal Medicine
DX: I48.91 Unspecified atrial fibrillation (principal)

== ENCOUNTER → 2017-09-08 | Outpatient (CLI) | payer OTHER | END | disposition home or self-care (01) | LOC: C.LABCC 08:24 | PROVIDERS: ATTEND Internal Medicine | DX: I48.91 Unspecified atrial fibrillation (principal) ==

== ENCOUNTER → 2017-09-11 | Outpatient (CLI) | payer OTHER ==
[2017-09-11 08:43] LABS: BASO % 0.1 %; BASO ABS # 0.01 K/uL (0-0.2); EOS % 1.1 %; EOS ABS # 0.08 K/uL (0-0.5); HEMATOCRIT 38.3 % (37-47); HEMOGLOBIN 12.3 g/dL (12.0-16.0); IG# 0.02 K/uL (0.00-0.02); LYMPH % 9.4 %; LYMPH ABS # 0.67 K/uL (1.2-3.4); MEAN CORPUSCULAR HEMOGLOBIN 30.5 pg (25-34); MEAN CORPUSCULAR HGB CONC 32.1 g/dl (32-36); MONO % 4.4 %; MONO ABS # 0.31 K/uL (0.11-0.59); NEUT % 84.7 %; NEUT ABS # 6.03 K/uL (1.4-6.5); PLATELET COUNT 183 K/uL (130-400); RED CELL DISTRIBUTION WIDTH CV 17.2 % (11.5-14.5); RED CELL DISTRIBUTION WIDTH SD 60.3 fL (36.4-46.3); WHITE BLOOD COUNT 7.12 K/uL (4.8-10.8)
[2017-09-11 08:52] LABS: ALBUMIN 2.9 gm/dl (3.4-5.0); BLOOD UREA NITROGEN 27 mg/dl (7-18); CALCIUM 8.9 mg/dl (8.5-10.1); CARBON DIOXIDE 25 mmol/L (21-32); CREATININE 0.97 mg/dl (0.60-1.20); GLUCOSE 167 mg/dl (70-99); POTASSIUM 4.2 mmol/L (3.5-5.1); SODIUM 137 mmol/L (136-145)
[2017-09-11 08:56] LABS: ALKALINE PHOSPHATASE 58 U/L (45-117); ALT/SGPT 38 U/L (12-78); AST/SGOT 23 U/L (15-37); TOTAL PROTEIN 6.5 gm/dl (6.4-8.2)
== END ==
LOC: C.LABCC 08:14
PROVIDERS: ATTEND Internal Medicine
DX: L12.0 Bullous pemphigoid (principal)

== ENCOUNTER 2017-11-20 11:51 | Inpatient (IN) | payer OTHER ==
[~2017-11-20] VITALS: Ht 165.1 cm; Wt 79.4 kg
[2017-11-20] MEDS ORDERED: OPTIRAY 320 IV PRN (13:15)
[2017-11-20] MEDS ORDERED: DICL250C73 PO (13:27)
[2017-11-20] MEDS ORDERED: DILT120T3 PO (13:27)
[2017-11-20] MEDS ORDERED: LNX125 PO (13:27)
[2017-11-20] MEDS ORDERED: ACET-1256 PO (13:27)
[2017-11-20] MEDS ORDERED: AZAT50TA22 PO (13:27)
--- NOTE | 2017-11-20 13:31 | EMERGENCY ROOM VISIT NOTE ---
ED Visit Note First contact with patient: 12:54 I have seen and examined this patient with Panfilo Queen and generally agree with the treatment plan as discussed. 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 (6) Mitral valve regurgitation Status: Chronic (7) Pulmonary hypertension Status: Chronic (8) Tricuspid valve regurgitation Status: Chronic Current/Historical Medications Scheduled Azathioprine (Azathioprine), 50 MG PO BID Bupropion (Wellbutrin), 75 MG PO QAM Dicloxacillin Sodium (Dynapen), 250 MG PO Q6H Digoxin (Digoxin), 0.125 MG PO QAM Diltiazem Hcl (Cardizem), 120 MG PO QAM Diltiazem Hcl (Diltiazem Hcl), 120 MG PO QAM Ferrous Sulfate (Ferrous Sulfate), 325 MG PO QAM Magnesium Chloride (Slow-Mag Tab), 64 MG PO BID Memantine (Namenda), 10 MG PO BID Metoprolol Tartrate (Lopressor) (Lopressor), 25 MG PO BID Potassium Ext Rel (Klor-Con), 10 MEQ PO BID Ranitidine (Zantac), 150 MG PO HS Sennosides-Docusate Sodium (Senna Plus), 1 TAB PO BID Simvastatin (Zocor), 10 MG PO QPM Sodium Chloride (Sodium Chloride), 2 GM PO TID Warfarin Sodium (Coumadin), 5 MG PO DAILY Scheduled PRN Acetaminophen (Tylenol), 650 MG PO Q6H PRN for Pain or Fever Acetaminophen (Tylenol), 1,000 MG PO DAILY PRN for Pain Allergies Coded Allergies: No Known Allergies (Verified , NONE, 10/13/16) Vital Signs Date Time Temp Pulse Resp B/P (MAP) Pulse Ox O2 Delivery O2 Flow Rate FiO2 11/20/17 13:14 77 20 111/75 97 Room Air 11/20/17 13:07 96 Room Air 11/20/17 12:02 75 11/20/17 11:51 36.7 87 18 111/71 96 Room Air Laboratory Results Test 11/20/17 13:02 Departure Information Referrals [facility] (PCP) Patient Instructions My [facility]
[2017-11-20 14:02] LABS: ISTAT IONIZED CALCIUM 1.14 mmol/l (1.12-1.32); ISTAT POTASSIUM 4.9 mEq/L (3.3-5.0)
[2017-11-20 14:06] LABS: BASO % 0.1 %; BASO ABS # 0.01 K/uL (0-0.2); EOS % 0.4 %; EOS ABS # 0.04 K/uL (0-0.5); HEMATOCRIT 40.9 % (37-47); HEMOGLOBIN 13.2 g/dL (12.0-16.0); IG# 0.05 K/uL (0.00-0.02); LYMPH % 8.4 %; LYMPH ABS # 0.85 K/uL (1.2-3.4); MEAN CELL VOLUME 99.5 fL (80-100); MEAN CORPUSCULAR HEMOGLOBIN 32.1 pg (25-34); MEAN CORPUSCULAR HGB CONC 32.3 g/dl (32-36); MEAN PLATELET VOLUME 8.9 fL (7.4-10.4); MONO % 2.5 %; MONO ABS # 0.25 K/uL (0.11-0.59); NEUT % 88.1 %; NEUT ABS # 8.92 K/uL (1.4-6.5); PLATELET COUNT 184 K/uL (130-400); WHITE BLOOD COUNT 10.12 K/uL (4.8-10.8)
[2017-11-20] MEDS ORDERED: NVLG SQ (14:07)
[2017-11-20] MEDS ORDERED: NMN10 PO (14:07)
[2017-11-20] MEDS ORDERED: NIAC500T85 PO (14:07)
[2017-11-20] MEDS ORDERED: [UNRECOGNIZED DRUG - CODE] OPL (14:07)
[2017-11-20] MEDS ORDERED: INSU100I (14:07)
[2017-11-20] MEDS ORDERED: PRED-301 PO (14:07)
[2017-11-20] MEDS ORDERED: LVMI SQ (14:07)
[2017-11-20] MEDS ORDERED: ATR25 PO (14:07)
[2017-11-20] MEDS ORDERED: DOXY100C76 PO (14:07)
[2017-11-20] MEDS ORDERED: LEVO50TA6 PO (14:07)
[2017-11-20] MEDS ORDERED: RIVA1TAB4 PO (14:07)
[2017-11-20] MEDS ORDERED: OXYC-90 PO ×2 (14:07)
[2017-11-20] MEDS ORDERED: POTA10CA28 PO (14:07)
[2017-11-20] MEDS ORDERED: SLWMEC PO (14:07)
[2017-11-20] MEDS ORDERED: HYDR-5688 PO (14:07)
[2017-11-20 14:31] LABS: ALBUMIN 3.2 gm/dl (3.4-5.0); CALCIUM 9.3 mg/dl (8.5-10.1); CREATININE 1.04 mg/dl (0.60-1.20); POTASSIUM 4.9 mmol/L (3.5-5.1); TOTAL PROTEIN 6.9 gm/dl (6.4-8.2)
[2017-11-20] MEDS ORDERED: ACYCLOVIR SOD INJ 600 MG in DEXTROSE 5% 100ML 100 ML IV STA (14:53)
--- NOTE | 2017-11-20 14:58 | DIAGNOSTIC IMAGING REPORT ---
FACIAL-MAXILLOFACIAL WITH HISTORY: 82 years-old Female L eye edema, erythema. Cannot open L eye acute pain and swelling about the left eye with soft tissue swelling. No reported trauma. COMPARISON: CT head 10/27/2016 TECHNIQUE: Multiple axial CT images of the soft tissues of the face and maxillofacial bones were obtained following the intravenous administration of 94 mL Optiray 320 IV contrast. A dose lowering technique was used consistent with the principals of COLTEN. FINDINGS: Senescent calcified scleral plaques are noted about the bilateral globes at the insertion of the medial rectus muscles bilaterally. Anterior and posterior chambers about the bilateral globes appear within normal limits. No evidence of scleritis. Mildly increased enhancement about the left lacrimal gland. There is moderate soft tissue swelling with subcutaneous edema about the left periorbital soft tissues with suggested preorbital cellulitis. No post septal or intraconal inflammation identified. No opaque foreign body or drainable fluid collection. No evidence of proptosis. The bilateral optic nerves and extraocular musculature otherwise appears to be within normal limits. Prominent calcified plaque about the left carotid bulb. No pathologically enlarged lymph nodes are identified. Age-related changes of the imaged brain with atrophy and chronic microvascular ischemic changes. Multilevel facet arthropathy and uncovertebral spurring. Polypoid mucosal thickening about the right maxillary sinus. Moderate ethmoid sinus disease with mild polypoid mucosal thickening of the inferior right frontal sinus. No acute facial bone fracture or dislocation. Degenerative changes about the bilateral temporal mandibular joints. IMPRESSION: 1. Moderate preseptal subcutaneous edema about the left orbit suggests periorbital cellulitis. No evidence of scleritis or post septal inflammation. No drainable fluid collection. 2. Senescent calcified scleral plaques of the bilateral globes at the medial rectus insertion sites. 3. Paranasal sinus disease as above. The above report was generated using voice recognition software. It may contain grammatical, syntax or spelling errors. Electronically signed by: Robbie Newton M.D. 11/20/2017 2:57 PM Dictated Date/Time: 11/20/2017 2:41 PM
[2017-11-20] MEDS ORDERED: SODIUM CHLORIDE 0.9% 500ML 500 ML IV STA (15:19)
[2017-11-20] MEDS ORDERED: PIPERACILLIN/TAZOBACTAM 4.5 GM/100ML D5W IV STA (15:19)
[2017-11-20] MEDS ORDERED: VANCOMYCIN IV 1,500 MG in SODIUM CHLORIDE 0.9% 250ML 250 ML IV STA (15:19)
[2017-11-20] MEDS ORDERED: VANCOMYCIN CONSULT ACTIVE PRN ×2 (15:30→18:00)
--- NOTE | 2017-11-20 16:08 | EMERGENCY ROOM VISIT NOTE ---
History First contact with patient: 12:54 Chief Complaint: EYE ASSESSMENT Stated Complaint: EYE INFECTION History of Present Illness The patient is a 82 year old female who presents to the Emergency Room via transport from [facility] with complaints of "eye infection". Per documentation, she has been experiencing erythema/eye infection in the left eye for the past week. She has been on oral dicloxacillin, documented doxycycline orally as well as tobramycin eyedrops. It is noted that the dicloxacillin and tobramycin were started on the . She was sent here noting worsening of her symptoms. At baseline the patient does have dementia. She answers very little questions. She is unsure how long she has had the symptoms. Review of Systems A complete 10-point Review of Systems was discussed with the patient, with pertinent positives and negatives listed in the History of Present Illness. All remaining Review of Systems questions can be considered negative unless otherwise specified. 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 Social History Smoking Status: Never Smoker Alcohol Use: none Drug Use: none Marital Status: single Housing Status: lives alone Occupation Status: retired Current/Historical Medications Scheduled Azathioprine (Azathioprine), 50 MG PO BID Bupropion (Wellbutrin), 75 MG PO QAM Dicloxacillin Sodium (Dynapen), 250 MG PO Q6H Digoxin (Digoxin), 0.125 MG PO QAM Diltiazem Hcl (Diltiazem Hcl), 120 MG PO QAM Doxycycline Monohydrate (Monodox), 100 MG PO BID Ferrous Sulfate (Ferrous Sulfate), 325 MG PO QAM Hydroxyzine HCl (Hydroxyzine HCl), 25 MG PO QID Insulin Aspart (Novolog), 5 UNITS SQ DAILY Insulin Detemir (Levemir), 10 UNITS SQ DAILY Levothyroxine Sodium (Levothyroxine Sodium), 50 MCG PO DAILY Magnesium Chloride (Slow-Mag Tab), 64 MG PO BID Memantine (Namenda), 10 MG PO BID Metoprolol Tartrate (Lopressor) (Lopressor), 25 MG PO BID Niacinamide (Endur-Amide), 500 MG PO TID Potassium Chloride (Micro-K Ext Rel), 10 MEQ PO BID Prednisone (Prednisone), 27.5 MG PO DAILY Ranitidine (Zantac), 150 MG PO HS Rivaroxaban (Xarelto), 20 MG PO DAILY Sennosides-Docusate Sodium (Senna Plus), 1 TAB PO BID Simvastatin (Zocor), 10 MG PO QPM Sodium Chloride (Sodium Chloride), 2 GM PO TID Tobramycin (Ophth) (Tobramycin), 2 DROPS OPL Q6H Scheduled PRN Acetaminophen (Tylenol), 1,000 MG PO DAILY PRN for Pain Hydrocodone/Acetaminophen 5MG/325MG ([place] 5MG/325MG), 1 TABLET PO DAILY PRN for Pain Oxycodone Ir (Roxicodone Ir), 5 MG PO Q6H PRN for Pain Oxycodone Ir (Roxicodone Ir), 10 MG PO Q6 PRN for Severe Pain Miscellaneous Medications Insulin Lispro (Human) (Humalog) Physical Exam Vital Signs Date Time Temp Pulse Resp B/P (MAP) Pulse Ox O2 Delivery O2 Flow Rate FiO2 11/20/17 18:18 93 11/20/17 17:45 99 26 136/100 96 Room Air 11/20/17 16:31 78 16 135/109 96 Room Air 11/20/17 15:31 79 22 111/75 92 Room Air 11/20/17 13:14 77 20 111/75 97 Room Air 11/20/17 13:07 96 Room Air 11/20/17 12:02 75 11/20/17 11:51 36.7 87 18 111/71 96 Room Air Right Eye Acuity: unable to assess d/t patient condition Physical Exam VITAL SIGNS - Vital signs and nursing notes were reviewed. Stable. Afebrile. GENERAL -82-year-old female appearing her stated age. Communicates well with provider and answers questions appropriately. HEAD - Normocephalic, Atraumatic. No Harvey's Sign or Raccoon's Eyes. No depressed skull fractures palpable. SKIN: Around the left superior portion of the eye extending from the left eyebrow there are small darkened punctate lesions as well as surrounding miranda crusts. There is a large amount of edema surrounding the left eye. EYES -assessment of the left eye is nearly impossible. Attempt was made to separate the superior and lower eyelids to visualize the eye and patient did not tolerate, secondary to pain in the large amount of edema. There is minimal scant drainage. It is clearish yellow in nature. EARS - No deformities of external structures noted on gross examination bilaterally. Handle of malleus, umbo, cone of light, pars tensa/flaccid all easily visualized. NOSE - Midline and without cyanosis. Without discharge. MOUTH/OROPHARYNX - Without perioral cyanosis. Tongue midline with equal elevation of palate bilaterally. No tonsillar hypertrophy, erythema, or exudates noted. [] dentition noted. NECK - FROM assessed. No cervical lymphadenopathy noted. Medical Decision & Procedures ER Provider Diagnostic Interpretation: FACIAL-MAXILLOFACIAL WITH HISTORY: 82 years-old Female L eye edema, erythema. Cannot open L eye acute pain and swelling about the left eye with soft tissue swelling. No reported trauma. COMPARISON: CT head 10/27/2016 TECHNIQUE: Multiple axial CT images of the soft tissues of the face and maxillofacial bones were obtained following the intravenous administration of 94 mL Optiray 320 IV contrast. A dose lowering technique was used consistent with the principals of ALARA. FINDINGS: Senescent calcified scleral plaques are noted about the bilateral globes at the insertion of the medial rectus muscles bilaterally. Anterior and posterior chambers about the bilateral globes appear within normal limits. No evidence of scleritis. Mildly increased enhancement about the left lacrimal gland. There is moderate soft tissue swelling with subcutaneous edema about the left periorbital soft tissues with suggested preorbital cellulitis. No post septal or intraconal inflammation identified. No opaque foreign body or drainable fluid collection. No evidence of proptosis. The bilateral optic nerves and extraocular musculature otherwise appears to be within normal limits. Prominent calcified plaque about the left carotid bulb. No pathologically enlarged lymph nodes are identified. Age-related changes of the imaged brain with atrophy and chronic microvascular ischemic changes. Multilevel facet arthropathy and uncovertebral spurring. Polypoid mucosal thickening about the right maxillary sinus. Moderate ethmoid sinus disease with mild polypoid mucosal thickening of the inferior right frontal sinus. No acute facial bone fracture or dislocation. Degenerative changes about the bilateral temporal mandibular joints. IMPRESSION: 1. Moderate preseptal subcutaneous edema about the left orbit suggests periorbital cellulitis. No evidence of scleritis or post septal inflammation. No drainable fluid collection. 2. Senescent calcified scleral plaques of the bilateral globes at the medial rectus insertion sites. 3. Paranasal sinus disease as above. The above report was generated using voice recognition software. It may contain grammatical, syntax or spelling errors. Electronically signed by: Robbie Newton M.D. 11/20/2017 2:57 PM Dictated Date/Time: 11/20/2017 2:41 PM Laboratory Results Test 11/20/17 13:35 11/20/17 13:40 Bedside Hemoglobin 13.9 g/dl (12.0-16.0) Bedside Hematocrit 41 % (37-47) Bedside Sodium 134 mEq/L (135-144) Bedside Potassium 4.9 mEq/L (3.3-5.0) Bedside Chloride 97 mEq/L (101-112) Bedside Total CO2 29 mEq/l (24-31) Bedside Blood Urea Nitrogen 28 mg/dl (7-18) Bedside Creatinine 1.0 mg/dl (0.6-1.3) Bedside Glucose (other) 205 mg/dl (70-99) Bedside Ionized Calcium (Samia) 1.14 mmol/l (1.12-1.32) RDW Standard Deviation 58.0 fL (36.4-46.3) RDW Coefficient of Variation 16.0 % (11.5-14.5) White Blood Count 10.12 K/uL (4.8-10.8) Red Blood Count 4.11 M/uL (4.2-5.4) Hemoglobin 13.2 g/dL (12.0-16.0) Hematocrit 40.9 % (37-47) Mean Corpuscular Volume 99.5 fL (80-100) Mean Corpuscular Hemoglobin 32.1 pg (25-34) Mean Corpuscular Hemoglobin Concent 32.3 g/dl (32-36) Platelet Count 184 K/uL (130-400) Mean Platelet Volume 8.9 fL (7.4-10.4) Neutrophils (%) (Auto) 88.1 % Lymphocytes (%) (Auto) 8.4 % Monocytes (%) (Auto) 2.5 % Eosinophils (%) (Auto) 0.4 % Basophils (%) (Auto) 0.1 % Neutrophils # (Auto) 8.92 K/uL (1.4-6.5) Lymphocytes # (Auto) 0.85 K/uL (1.2-3.4) Monocytes # (Auto) 0.25 K/uL (0.11-0.59) Eosinophils # (Auto) 0.04 K/uL (0-0.5) Basophils # (Auto) 0.01 K/uL (0-0.2) Immature Granulocyte % (Auto) 0.5 % Immature Granulocyte # (Auto) 0.05 K/uL (0.00-0.02) Est Creatinine Clear Calc Drug Dose 43.4 ml/min Lactic Acid Level 2.0 mmol/L (0.4-2.0) Total Bilirubin 1.0 mg/dl (0.2-1) Aspartate Amino Transf (AST/SGOT) 21 U/L (15-37) Alanine Aminotransferase (ALT/SGPT) 26 U/L (12-78) Alkaline Phosphatase 47 U/L (45-117) Total Protein 6.9 gm/dl (6.4-8.2) Albumin 3.2 gm/dl (3.4-5.0) Globulin 3.7 gm/dl (2.5-4.0) Albumin/Globulin Ratio 0.9 (0.9-2) Medications Administered Medications (Trade) Dose Ordered Sig/Yonathan Route Start Time Stop Time Status Last Admin Dose Admin Acyclovir Sodium 600 mg/Dextrose 112 ml @ 110 mls/hr Q8H STAT IV 11/20/17 14:53 11/20/17 15:54 DC 11/20/17 15:30 110 MLS/HR Sodium Chloride 500 ml @ 999 mls/hr Q31M STAT IV 11/20/17 15:19 11/20/17 15:49 DC 11/20/17 15:30 999 MLS/HR Vancomycin HCl 1500 mg/Sodium Chloride 280 ml @ 125 mls/hr NOW STAT IV 11/20/17 15:19 11/20/17 17:33 DC 11/20/17 18:11 125 MLS/HR Piperacillin Sod/ Tazobactam Sod (Zosyn Iv) 4.5 gm NOW STAT IV 11/20/17 15:19 11/20/17 15:30 DC 11/20/17 16:34 4.5 GM Medical Decision Patient was seen and evaluated as above in room D2. Review was performed of nursing notes and vital signs. After obtaining a thorough history and physical examination the above work up was performed. She presents today referred by [facility] for left eye swelling. There is evidence of suspected shingles above the left eye. Examination of the left eye is severely limited secondary to patient's level of pain as well as edema. I was unable to even visualize the left eye as I could not start the superior and lower eyelids. The concern is that because of the rash around the left eye treatment for potential herpes zoster ophthalmicus should begin. She was given IV acyclovir after discussing the case with the attending physician and subsequently pharmacy. I also added IV antibiotics following the CT scan revealing periorbital cellulitis. She will be given vancomycin and Zosyn as well. I also discussed this with Dr. Reese, of ophthalmology. CBC reveals no concerning leukocytosis or anemia. Patient metabolic panel reveals no evidence of kidney or liver failure emergently. Lactic acidosis not present. I believe the patient warrants inpatient management for the clinton-orbital cellulitis and her present condition. Case discussed with hospitalist, Dr. Davis please refer to for the documentation regarding her stay. Case was discussed with the attending physician. I attest that I have personally reviewed the patient medication list. I attest that I have reviewed the patient's blood pressure and it was found to be within normal limits In the evaluation and treatment of this patient, the following differential diagnoses were considered: Corneal Abrasion, Conjunctivitis, Eye Contusion, Globe Injury, Orbital Floor Injury (Blowout Fracture), Corneal Ulcer, Keratitis , Herpes Zoster Opthalmic, Blepharitis, Orbital Cellulitis, Iritis, Scleritis/ Episcleritis, Uveitis, Temporal Arteritis, Subconjunctival Hemorrhage. Impression Primary Impression: Periorbital cellulitis of left eye Departure Information Dispostion Other Condition FAIR Referrals Coffee, Ant (PCP) Patient Instructions My [facility]
[2017-11-20] MEDS ORDERED: ACETAMINOPHEN 325 MG TAB PO PRN (18:00)
[2017-11-20] MEDS ORDERED: MAGNESIUM HYDROXIDE SUSP 30 ML UDC PO PRN (18:00)
[2017-11-20] MEDS ORDERED: OXYCODONE HCL IR 5 MG TAB (IMMEDIATE RELEASE) PO PRN ×2 (18:00)
[2017-11-20] MEDS ORDERED: ACETAMINOPHEN 500 MG TAB PO PRN (18:00)
[2017-11-20] MEDS ORDERED: HYDROCODONE/ACETAMIN 5/325MG TAB PO PRN (18:00)
[2017-11-20] MEDS ORDERED: POLYETHYLENE (MIRALAX) 17 GM PACK PO PRN (18:00)
[2017-11-20] MEDS ORDERED: ALUMINUM/MAGNESIUM/SIMETH (MAALOX MAX) 30 ML UDC PO PRN (18:00)
[2017-11-20] MEDS ORDERED: ONDANSETRON INJ 2 MG/ML 2 ML VIAL IV PRN (18:00)
[2017-11-20] MEDS ORDERED: PIPERACILL/TAZOBAC CONSULT ACTIVE PRN (18:00)
--- NOTE | 2017-11-20 18:55 | History and Physical ---
History & Physical Date & Time of Service: Nov 20, 2017 at 18:37 Chief Complaint: Eye Infection Primary Care Physician: Ant Rubin History of Present Illness Source: patient, hospital records 82y/oF with hx of dementia, CVA, Afib, MV insufficiency, HTN, HLD, DM, GERD, hypothyroidims, bullous pemphigoid, TPMT enzyme deficiency, dysphagia, gait abnormality and depression presented from [facility] for worsening L eye erythema/infection x 1 week. Unable to obtain hx from pt due to mental status/ dementia. Per records, noted to eye L eye periorbital cellulitis last week with drainage. Was started on dicloxacillin and tobramycin drops (also doxycycline per med rec/records). ED interval history: concern for herpes zoster opthalmicus ([place] spoke to logging truck driver Dr. Varela) received acyclovir and vanc/zosyn for concern of periorbital cellulitis. Also received 1L NS. 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 Social History Smoking Status: Never Smoker Drug Use: none Marital Status: single Housing status: [place] Occupational Status: retired Immunizations History of Influenza Vaccine: N/A Influenza Vaccine Date: Aug 18, 2008 History of Tetanus Vaccine?: Unknown History of Pneumococcal: Unknown Pneumococcal Date: Jun 21, 2012 History of Hepatitis B Vaccine: Unknown Allergies Coded Allergies: No Known Allergies (Verified , NONE, 10/13/16) Home Medications Scheduled Azathioprine (Azathioprine), 50 MG PO BID Bupropion (Wellbutrin), 75 MG PO QAM Dicloxacillin Sodium (Dynapen), 250 MG PO Q6H Digoxin (Digoxin), 0.125 MG PO QAM Diltiazem Hcl (Diltiazem Hcl), 120 MG PO QAM Doxycycline Monohydrate (Monodox), 100 MG PO BID Ferrous Sulfate (Ferrous Sulfate), 325 MG PO QAM Hydroxyzine HCl (Hydroxyzine HCl), 25 MG PO QID Insulin Aspart (Novolog), 5 UNITS SQ DAILY Insulin Detemir (Levemir), 10 UNITS SQ DAILY Levothyroxine Sodium (Levothyroxine Sodium), 50 MCG PO DAILY Magnesium Chloride (Slow-Mag Tab), 64 MG PO BID Memantine (Namenda), 10 MG PO BID Metoprolol Tartrate (Lopressor) (Lopressor), 25 MG PO BID Niacinamide (Endur-Amide), 500 MG PO TID Potassium Chloride (Micro-K Ext Rel), 10 MEQ PO BID Prednisone (Prednisone), 27.5 MG PO DAILY Ranitidine (Zantac), 150 MG PO HS Rivaroxaban (Xarelto), 20 MG PO DAILY Sennosides-Docusate Sodium (Senna Plus), 1 TAB PO BID Simvastatin (Zocor), 10 MG PO QPM Sodium Chloride (Sodium Chloride), 2 GM PO TID Tobramycin (Ophth) (Tobramycin), 2 DROPS OPL Q6H Scheduled PRN Acetaminophen (Tylenol), 1,000 MG PO DAILY PRN for Pain Hydrocodone/Acetaminophen 5MG/325MG ([place] 5MG/325MG), 1 TABLET PO DAILY PRN for Pain Oxycodone Ir (Roxicodone Ir), 5 MG PO Q6H PRN for Pain Oxycodone Ir (Roxicodone Ir), 10 MG PO Q6 PRN for Severe Pain Miscellaneous Medications Insulin Lispro (Human) (Humalog) Review of Systems ROS limited by Pt's mental status (hx of dementia) Constitutional: No fever Eyes: + eye pain, + redness, + discharge Neurologic: + problem reported (AMS) Integumentary: + problem reported (hx of bullous phemphigoid (dry scaly skin with multiple excoriations)) Physical Exam Vital Signs Date Time Temp Pulse Resp B/P (MAP) Pulse Ox O2 Delivery O2 Flow Rate FiO2 11/20/17 18:18 93 11/20/17 17:45 99 26 136/100 96 Room Air 11/20/17 16:31 78 16 135/109 96 Room Air 11/20/17 15:31 79 22 111/75 92 Room Air 11/20/17 13:14 77 20 111/75 97 Room Air 11/20/17 13:07 96 Room Air 11/20/17 12:02 75 11/20/17 11:51 36.7 87 18 111/71 96 Room Air General Appearance: + moderate distress, + pertinent finding (pt appears uncomfortable and cries due to pain) Head: normocephalic, atraumatic Eyes: normal inspection (R eye), EOMI (R eye unable to assess L eye), sclerae normal (R eye unable to visualize L eye due to edema), + pertinent finding (L eye erythema/edema/drainage with crusted lesions; unable to be opened due to extensive edema and pain) ENT: hearing grossly normal Respiratory/Chest: lungs clear, normal breath sounds, no respiratory distress Cardiovascular: no murmur, + abnormal rhythm Abdomen/GI: normal bowel sounds, non tender, soft Genitourinary - Female: + pertinent finding (chronic parmar intact) Back: + pertinent finding (first degree large pressure ulcer with multiple excoriations on buttocks) Extremities/Musculoskelatal: + pertinent finding (extremities with dry scaly skin and multiple excoriations victoriano in RLE) Neurologic/Psych: alert, + disoriented, + pertinent finding (demented) Skin: + pertinent finding (as above + diffuse scaly skin with lesions ( excoriations) - hx of bullous pemphigoid ) Diagnostics Laboratory Results Results Past 24 Hours Test 11/20/17 13:35 11/20/17 13:40 Range/Units Bedside Hemoglobin 13.9 12.0-16.0 g/dl Bedside Hematocrit 41 37-47 % Bedside Sodium 134 135-144 mEq/L Bedside Potassium 4.9 3.3-5.0 mEq/L Bedside Chloride 97 101-112 mEq/L Bedside Total CO2 29 24-31 mEq/l Anion Gap 14.0 8.0 3-11 mmol/L Bedside Blood Urea Nitrogen 28 7-18 mg/dl Bedside Creatinine 1.0 0.6-1.3 mg/dl Bedside Glucose (other) 205 70-99 mg/dl Bedside Ionized Calcium (Samia) 1.14 1.12-1.32 mmol/l White Blood Count 10.12 4.8-10.8 K/uL Red Blood Count 4.11 4.2-5.4 M/uL Hemoglobin 13.2 12.0-16.0 g/dL Hematocrit 40.9 37-47 % Mean Corpuscular Volume 99.5 80-100 fL Mean Corpuscular Hemoglobin 32.1 25-34 pg Mean Corpuscular Hemoglobin Concent 32.3 32-36 g/dl Platelet Count 184 130-400 K/uL Mean Platelet Volume 8.9 7.4-10.4 fL Neutrophils (%) (Auto) 88.1 % Lymphocytes (%) (Auto) 8.4 % Monocytes (%) (Auto) 2.5 % Eosinophils (%) (Auto) 0.4 % Basophils (%) (Auto) 0.1 % Neutrophils # (Auto) 8.92 1.4-6.5 K/uL Lymphocytes # (Auto) 0.85 1.2-3.4 K/uL Monocytes # (Auto) 0.25 0.11-0.59 K/uL Eosinophils # (Auto) 0.04 0-0.5 K/uL Basophils # (Auto) 0.01 0-0.2 K/uL RDW Standard Deviation 58.0 36.4-46.3 fL RDW Coefficient of Variation 16.0 11.5-14.5 % Immature Granulocyte % (Auto) 0.5 % Immature Granulocyte # (Auto) 0.05 0.00-0.02 K/uL Sodium Level 135 136-145 mmol/L Potassium Level 4.9 3.5-5.1 mmol/L Chloride Level 99 98-107 mmol/L Carbon Dioxide Level 29 21-32 mmol/L Blood Urea Nitrogen 28 7-18 mg/dl Creatinine 1.04 0.60-1.20 mg/dl Est Creatinine Clear Calc Drug Dose 43.4 ml/min Estimated GFR () 57.9 Estimated GFR (Non- 50.0 BUN/Creatinine Ratio 26.5 10-20 Random Glucose 199 70-99 mg/dl Lactic Acid Level 2.0 0.4-2.0 mmol/L Calcium Level 9.3 8.5-10.1 mg/dl Total Bilirubin 1.0 0.2-1 mg/dl Aspartate Amino Transf (AST/SGOT) 21 15-37 U/L Alanine Aminotransferase (ALT/SGPT) 26 12-78 U/L Alkaline Phosphatase 47 45-117 U/L Total Protein 6.9 6.4-8.2 gm/dl Albumin 3.2 3.4-5.0 gm/dl Globulin 3.7 2.5-4.0 gm/dl Albumin/Globulin Ratio 0.9 0.9-2 Microbiology Results 11/20/17 Blood Culture, Received Pending 11/20/17 Blood Culture, Received Pending Diagnostic Radiology FACIAL-MAXILLOFACIAL WITH HISTORY: 82 years-old Female L eye edema, erythema. Cannot open L eye acute pain and swelling about the left eye with soft tissue swelling. No reported trauma. COMPARISON: CT head 10/27/2016 TECHNIQUE: Multiple axial CT images of the soft tissues of the face and maxillofacial bones were obtained following the intravenous administration of 94 mL Optiray 320 IV contrast. A dose lowering technique was used consistent with the principals of COLTEN. FINDINGS: Senescent calcified scleral plaques are noted about the bilateral globes at the insertion of the medial rectus muscles bilaterally. Anterior and posterior chambers about the bilateral globes appear within normal limits. No evidence of scleritis. Mildly increased enhancement about the left lacrimal gland. There is moderate soft tissue swelling with subcutaneous edema about the left periorbital soft tissues with suggested preorbital cellulitis. No post septal or intraconal inflammation identified. No opaque foreign body or drainable fluid collection. No evidence of proptosis. The bilateral optic nerves and extraocular musculature otherwise appears to be within normal limits. Prominent calcified plaque about the left carotid bulb. No pathologically enlarged lymph nodes are identified. Age-related changes of the imaged brain with atrophy and chronic microvascular ischemic changes. Multilevel facet arthropathy and uncovertebral spurring. Polypoid mucosal thickening about the right maxillary sinus. Moderate ethmoid sinus disease with mild polypoid mucosal thickening of the inferior right frontal sinus. No acute facial bone fracture or dislocation. Degenerative changes about the bilateral temporal mandibular joints. IMPRESSION: 1. Moderate preseptal subcutaneous edema about the left orbit suggests periorbital cellulitis. No evidence of scleritis or post septal inflammation. No drainable fluid collection. 2. Senescent calcified scleral plaques of the bilateral globes at the medial rectus insertion sites. 3. Paranasal sinus disease as above. Impression Assessment and Plan 82y/oF with hx of dementia, CVA, Afib, MV insufficiency, HTN, HLD, DM, GERD, hypothyroidism, bullous pemphigoid, TPMT enzyme deficiency, dysphagia, gait abnormality and depression presented from [facility] for worsening L eye erythema/infection x 1 week. Admitted for L periorbital cellulitis and concern for herpes zoster opthalmicus. L eye clinton-orbital cellulitis and possible herpes zoster ophthalmicus - afebrile, no WBC elevation - Face CT: moderate preseptal subcutaneous edema of L orbit concerning for periorbital cellulitis - Started on Vanc and Zosyn - Started on acyclovir IV 600mg Q8H - Pain control: tylenol, norco and oxycodone prn - Opthalmology consulted - Dr. Varela Hyponatremia - chronic - Na is 135 - Continued NaCl tabs Afib/HLD/HTN - Continued digoxin, diltiazem, metoprolol - Continued xarelto - Continued simvastatin GERD - continued ranitidine Depression - Continued bupropion Dementia - Continued Namenda Bullous Pemphigoid - Continued prednisone and hydroxyzine TPMT enzyme deficiency - Continued Azathioprine Hypothyroidism - continued levothyroxine DM - continued detemir - started on SSI novolog DVT prop: On Xarelto Code: Full Dispo: [facility] pending clinical improvement Resuscitation Status VTE Prophylaxis Will order VTE Prophylaxis: Yes Reviewed: Pt Seen/Exam by Me History Pt with ongoing L eye pain. Ongoing chronic pain issues. No chest pain or SOB. Agree with HPI/ROS as noted by resident General Appearance: WD/WN, no apparent distress Eye Exam: bilateral eye other (L ear with periorbital redness and swelling, area superior to eye with vesicals and crusting, orbital edema) Respiratory: normal breath sounds, no respiratory distress Cardiovascular: normal peripheral pulses, regular rate, rhythm Gastrointestinal: non tender, soft Extremities: non-tender, no pedal edema Neurologic/Psychiatric: alert, other (answers questions clearly) Skin Characteristics: warm/dry, other (redness and edema as above) Assessment/Plan Agree with plan as outlined above Possibly L ocular shingles with superimposed cellulitis ED spoke with ophtho, recs for acyclovir IV and vanc/zosyn Will c/s Blood cx pending WCC Afib: stable, monitor on xarelto DM: SSI PRN Dementia
[2017-11-20] MEDS ORDERED: CARBOHYDRATES FOR HYPOGLYCEMIA PO PRN (19:15)
[2017-11-20] MEDS ORDERED: GLUCOSE 10 TABS/TUBE PO PRN (19:15)
[2017-11-20] MEDS ORDERED: GLUCOSE 40% GEL 15 GM TUBE PO PRN (19:15)
[2017-11-20] MEDS ORDERED: GLUCAGON FOR INJ 1 MG VIAL IM PRN (19:15)
[2017-11-20] MEDS ORDERED: DEXTROSE 50% 50 ML SYR IV PRN (19:15)
[2017-11-20 19:53] VITALS: BP 135/84; PULSE 103; TEMP 36.5; O2SAT 98; BMI 29.1
--- NOTE | 2017-11-20 19:54 | Pharmacy Progress Note ---
Pharmacy Abx Initial Consult Date of Service Nov 20, 2017. Pharmacy Dosing Scope Date of Consult: 11/20/17 Consultation requested by: Dr. Barrow Pharmacy is consulted to initiate vancomycin/Zosyn IV dosing therapy, order appropriate labs and adjust drug dose/frequency. Subjective The patient is a 82 year old female admitted on Nov 20, 2017 at 18:33. Objective Height (Feet): 5 Height (Inches): 5.00 Weight (Kilograms): 79.400 Vital Signs (Past 12Hrs) Vital Signs Past 12 Hours Date Time Temp Pulse Resp B/P (MAP) Pulse Ox O2 Delivery O2 Flow Rate FiO2 11/20/17 19:18 102 21 116/95 96 11/20/17 18:18 93 11/20/17 17:45 99 26 136/100 96 Room Air 11/20/17 16:31 78 16 135/109 96 Room Air 11/20/17 15:31 79 22 111/75 92 Room Air 11/20/17 13:14 77 20 111/75 97 Room Air 11/20/17 13:07 96 Room Air 11/20/17 12:02 75 11/20/17 11:51 36.7 87 18 111/71 96 Room Air Lab Results (24Hrs) Laboratory Tests (24 Hours) Test 11/20/17 13:40 Lactic Acid Level 2.0 mmol/L (0.4-2.0) White Blood Count 10.12 K/uL (4.8-10.8) Red Blood Count 4.11 M/uL (4.2-5.4) L Hemoglobin 13.2 g/dL (12.0-16.0) Hematocrit 40.9 % (37-47) Mean Corpuscular Volume 99.5 fL (80-100) Mean Corpuscular Hemoglobin 32.1 pg (25-34) Mean Corpuscular Hemoglobin Concent 32.3 g/dl (32-36) Platelet Count 184 K/uL (130-400) Mean Platelet Volume 8.9 fL (7.4-10.4) Neutrophils (%) (Auto) 88.1 % Lymphocytes (%) (Auto) 8.4 % Monocytes (%) (Auto) 2.5 % Eosinophils (%) (Auto) 0.4 % Basophils (%) (Auto) 0.1 % Neutrophils # (Auto) 8.92 K/uL (1.4-6.5) H Lymphocytes # (Auto) 0.85 K/uL (1.2-3.4) L Monocytes # (Auto) 0.25 K/uL (0.11-0.59) Eosinophils # (Auto) 0.04 K/uL (0-0.5) Basophils # (Auto) 0.01 K/uL (0-0.2) Micro Results Date/Time Source Procedure Growth Status 11/20/17 13:40 Blood Blood Culture Pending Received 11/20/17 13:30 Blood Blood Culture Pending Received Risk Factors for Resistance * Resident in a residential or extended-care facility * Immunocompromised (chronic steroid therapy) * Antimicrobial use within the last 90 days (dicloxacillin, tobramycin eye drops ) Assessment & Plan Assessment 82 year old female from [facility] who presents with L eye cellulitis, possible herpes zoster. Plan vancomycin/ for treatment of L orbital cellulitis Vancomycin IV * Loading dose: 1500 mg (18.75 mg/kg) * Maintenance dose: 1250 mg IV (15 mg/kg) every 18 hours (population pharmacokinetics suggest a half-life of 17.3 hr and elimination constant of 0.04 hr-1. Since only 18.75 mg/kg given as load will start only 12 hours after load.) * Goal trough level for cellulitis : 15 to 20 mcg/mL * Trough ordered for 11/22/17 prior to 1800 dose (drawn early since this was a severe infection around eye) Piperacillin/tazobactam * 4.5 g bolus administered over 30 minutes, then 3.375 g IV extended infusion every 8 hours for CrCl greater than 20 mL/min Pharmacy will continue to follow and will adjust dose/frequency as necessary. Thank you.
[2017-11-20] MEDS: DOCUSATE SODIUM/SENNA 50/8.6MG TAB PO SCH (21:39)
[2017-11-20] MEDS: METOPROLOL TARTRATE 25 MG TAB PO SCH (21:40)
[2017-11-20] MEDS: POTASSIUM CHLORIDE 10 MEQ TABCR PO SCH (21:40)
[2017-11-20] MEDS: AZATHIOPRINE 50 MG TAB PO SCH (21:41)
[2017-11-20] MEDS: MEMANTINE 10 MG TAB PO SCH (21:41)
[2017-11-20] MEDS: SODIUM CHLORIDE 1 GM TAB PO SCH (21:41)
[2017-11-20] MEDS: MAGNESIUM CHLORIDE 64MG DELAYED REL TAB PO SCH (21:42)
[2017-11-20] MEDS: hydrOXYzine HCL 25 MG TAB PO SCH (21:42)
[2017-11-20] MEDS: RANITIDINE HCL 150 MG TAB PO SCH (21:43)
[2017-11-20] MEDS: SIMVASTATIN 10 MG TAB PO SCH (21:43)
[2017-11-20] MEDS: PIPERACILL/TAZOBAC IV 3.375 GM in DEXTROSE 5% 100ML 100 ML IV SCH (21:44)
[2017-11-20] MEDS: INSULIN ASPART 100 UNITS/ML 3 ML PEN SC SCH (21:55)
[2017-11-20 22:54] VITALS: BP 173/99; PULSE 99; TEMP 36.9; O2SAT 91
[2017-11-21] MEDS ORDERED: ACYCLOVIR SOD INJ 600 MG in DEXTROSE 5% 100ML 100 ML IV SCH ×2
[2017-11-21] MEDS: ACYCLOVIR SOD INJ 600 MG in DEXTROSE 5% 100ML 100 ML IV SCH ×2 (04:03→17:03)
[2017-11-21] MEDS: PIPERACILL/TAZOBAC IV 3.375 GM in DEXTROSE 5% 100ML 100 ML IV SCH ×3 (05:46→22:04)
[2017-11-21] MEDS: VANCOMYCIN IV 1,250 MG in SODIUM CHLORIDE 0.9% 250ML 250 ML IV SCH (05:47)
[2017-11-21] MEDS: LEVOTHYROXINE 50 MCG TAB PO SCH (05:48)
[2017-11-21 07:46] VITALS: BP 153/90; PULSE 103; TEMP 36.4; O2SAT 92
[2017-11-21 08:01] LABS: BASO % 0.1 %; BASO ABS # 0.01 K/uL (0-0.2); EOS ABS # 0.08 K/uL (0-0.5); HEMATOCRIT 42.1 % (37-47); HEMOGLOBIN 13.7 g/dL (12.0-16.0); IG# 0.06 K/uL (0.00-0.02); LYMPH % 19.7 %; LYMPH ABS # 1.65 K/uL (1.2-3.4); MEAN CELL VOLUME 97.7 fL (80-100); MEAN CORPUSCULAR HEMOGLOBIN 31.8 pg (25-34); MEAN CORPUSCULAR HGB CONC 32.5 g/dl (32-36); MONO % 6.5 %; MONO ABS # 0.54 K/uL (0.11-0.59); NEUT ABS # 6.03 K/uL (1.4-6.5); PLATELET COUNT 149 K/uL (130-400); RED CELL DISTRIBUTION WIDTH CV 15.7 % (11.5-14.5); RED CELL DISTRIBUTION WIDTH SD 55.9 fL (36.4-46.3); WHITE BLOOD COUNT 8.37 K/uL (4.8-10.8)
[2017-11-21 08:34] LABS: CALCIUM 8.7 mg/dl (8.5-10.1); CREATININE 0.85 mg/dl (0.60-1.20); POTASSIUM 3.7 mmol/L (3.5-5.1)
[2017-11-21] MEDS: RIVAROXABAN 20 MG TAB PO SCH (08:50)
[2017-11-21] MEDS: POTASSIUM CHLORIDE 10 MEQ TABCR PO SCH ×2 (08:52→19:37)
[2017-11-21] MEDS: MEMANTINE 10 MG TAB PO SCH ×2 (08:52→19:36)
[2017-11-21] MEDS: DOCUSATE SODIUM/SENNA 50/8.6MG TAB PO SCH ×2 (08:52→19:36)
[2017-11-21] MEDS: hydrOXYzine HCL 25 MG TAB PO SCH ×4 (08:53→19:44)
[2017-11-21] MEDS: METOPROLOL TARTRATE 25 MG TAB PO SCH ×2 (08:53→19:36)
[2017-11-21] MEDS: AZATHIOPRINE 50 MG TAB PO SCH ×2 (08:53→19:36)
[2017-11-21] MEDS: SODIUM CHLORIDE 1 GM TAB PO SCH ×3 (08:54→19:35)
[2017-11-21] MEDS: FERROUS SULFATE 325 MG TAB PO SCH (08:54)
[2017-11-21] MEDS: MAGNESIUM CHLORIDE 64MG DELAYED REL TAB PO SCH ×2 (08:55→19:36)
[2017-11-21] MEDS: INSULIN ASPART 100 UNITS/ML 3 ML PEN SC SCH ×4 (09:00→19:46)
[2017-11-21] MEDS: INSULIN DETEMIR FLEXPEN/FLEX TOUCH 100 UNITS/ML 3ML SQ SCH (09:00)
[2017-11-21] MEDS: DILTIAZEM HCL 120 MG ER CAP PO SCH (10:14)
--- NOTE | 2017-11-21 10:48 | Family Medicine Progress Note ---
Progress Note Date of Service Nov 21, 2017. Subjective TINY overnight per nursing Pt resting in bed during interview. Pt will answer with one word Endorses pain "achy all over" but no specific place ROS limited due to pt's somnolence Medications Current Inpatient Medications Medications (Trade) Dose Ordered Sig/Yonathan Route Start Time Stop Time Status Last Admin Dose Admin Ioversol (Optiray 320) 100 ml UD PRN IV 11/20/17 13:15 11/24/17 13:14 Acetaminophen (Tylenol Tab) 650 mg Q4H PRN PO 11/20/17 18:00 12/20/17 17:59 Al Hydrox/Mg Hydrox/Simethicone (Maalox Max Susp) 15 ml Q4H PRN PO 11/20/17 18:00 12/20/17 17:59 Magnesium Hydroxide (Milk Of Magnesia Susp) 30 ml Q6H PRN PO 11/20/17 18:00 12/20/17 17:59 Polyethylene (Miralax Powder Packet) 17 gm DAILY PRN PO 11/20/17 18:00 12/20/17 17:59 Ondansetron HCl (Zofran Inj) 4 mg Q6H PRN IV 11/20/17 18:00 12/20/17 17:59 Vancomycin HCl 1250 mg/Sodium Chloride 275 ml @ 125 mls/hr Q18H IV 11/21/17 06:00 12/01/17 05:59 11/21/17 05:47 125 MLS/HR Vancomycin HCl (Consult) 1 ea UD PRN N/A 11/20/17 18:00 12/20/17 17:59 Piperacillin Sod/ Tazobactam Sod 3.375 gm/Dextrose 115 ml @ 28.75 mls/ hr Q8H IV 11/20/17 22:00 11/30/17 17:59 11/21/17 05:46 28.75 MLS/HR Miscellaneous Information (Consult) 1 ea UD PRN N/A 11/20/17 18:00 12/20/17 17:59 Acetaminophen (Tylenol Tab) 1,000 mg DAILY PRN PO 11/20/17 18:00 12/20/17 17:59 Azathioprine (Imuran Tab) 50 mg BID PO 11/20/17 20:00 12/20/17 20:59 11/21/17 08:53 50 MG Bupropion HCl (Wellbutrin Tab) 75 mg QAM PO 11/21/17 08:00 12/21/17 08:59 11/21/17 08:50 75 MG Digoxin (Lanoxin Tab) 0.125 mg DAILY@1600 PO 11/21/17 16:00 12/21/17 15:59 Ferrous Sulfate (Feosol Tab) 325 mg QAM PO 11/21/17 08:00 12/21/17 08:59 11/21/17 08:54 325 MG Acetaminophen/ Hydrocodone Bitart ([place] 5/325 Tab) 1 tab DAILY PRN PO 11/20/17 18:00 12/04/17 17:59 Hydroxyzine HCl (Vistaril Tab) 25 mg QID PO 11/20/17 20:00 12/20/17 20:59 11/21/17 12:19 25 MG Levothyroxine Sodium (Synthroid Tab) 50 mcg DAILYBB PO 11/21/17 06:30 12/21/17 06:59 11/21/17 05:48 50 MCG Magnesium Chloride (Slow-Mag Tab) 64 mg BID PO 11/20/17 20:00 12/20/17 20:59 11/21/17 08:55 64 MG Memantine (Namenda Tab) 10 mg BID PO 11/20/17 20:00 12/20/17 20:59 11/21/17 08:52 10 MG Metoprolol Tartrate (Lopressor Tab) 25 mg BID PO 11/20/17 20:00 12/20/17 20:59 11/21/17 08:53 25 MG Oxycodone HCl (Roxicodone Immediate Rel Tab) 5 mg Q6H PRN PO 11/20/17 18:00 12/04/17 17:59 11/21/17 08:49 5 MG Oxycodone HCl (Roxicodone Immediate Rel Tab) 10 mg Q6 PRN PO 11/20/17 18:00 12/04/17 17:59 Potassium Chloride (Klor-Con M10) 10 meq BID PO 11/20/17 20:00 12/20/17 20:59 11/21/17 08:52 10 MEQ Prednisone (PredniSONE TAB) 27.5 mg DAILY PO 11/21/17 08:00 12/21/17 08:59 7/24/18 08:51 27.5 MG Ranitidine HCl (zANTac TAB) 150 mg HS PO 11/20/17 21:00 12/20/17 20:59 11/20/17 21:43 150 MG Rivaroxaban (Xarelto Tab) 20 mg DAILY PO 11/21/17 08:00 12/21/17 08:59 11/21/17 08:50 20 MG Senna/Docusate Sodium (Senokot S Tab) 1 tab BID PO 11/20/17 20:00 12/20/17 20:59 11/21/17 08:52 1 TAB Simvastatin (Zocor Tab) 10 mg QPM PO 11/20/17 21:00 12/20/17 20:59 11/20/17 21:43 10 MG Sodium Chloride (Sodium Chloride Tab) 2 gm TID PO 11/20/17 20:00 12/20/17 20:59 11/21/17 08:54 2 GM Diltiazem HCl (Dilacor Xr Cap) 120 mg DAILY PO 11/21/17 08:00 12/21/17 08:59 11/21/17 10:14 120 MG Insulin Detemir (Levemir Flexpen/ FlexTouch) 10 units DAILY SQ 11/21/17 08:00 12/21/17 08:59 11/21/17 09:00 10 UNITS Miscellaneous Information (Order Awaiting Action) 1 ea QS N/A 11/21/17 00:00 12/21/17 00:00 Insulin Aspart (novoLOG ASPART) SLIDING SCALE G... ACHS SC 11/20/17 21:00 12/20/17 20:59 Glucose (Glucose 40% Gel) 15-30 GRAMS 15 GRAMS... UD PRN PO 11/20/17 19:15 12/20/17 19:14 Glucose (Glucose Chew Tab) 4-8 Tablets 4 Tabl... UD PRN PO 11/20/17 19:15 12/20/17 19:14 Dextrose (Dextrose 50% 50ML Syringe) 25-50ML 25ML FOR ... UD PRN IV 11/20/17 19:15 12/20/17 19:14 Glucagon (Glucagon Inj) 1 mg UD PRN IM 11/20/17 19:15 12/20/17 19:14 Carbohydrates (Carbohydrates For Hypoglycemia) 15-30 GRAMS 15 grams if BSG 54-69... UD PRN PO 11/20/17 19:15 12/20/17 19:14 Acyclovir Sodium 600 mg/Dextrose 112 ml @ 110 mls/hr Q12H IV 11/21/17 04:00 12/01/17 03:59 11/21/17 04:03 110 MLS/HR Objective Vital Signs Date Time Temp Pulse Resp B/P (MAP) Pulse Ox O2 Delivery O2 Flow Rate FiO2 11/21/17 11:37 37.1 11/21/17 10:51 34.7 84 18 173/82 (112) 90 11/21/17 08:00 Room Air 11/21/17 07:46 36.4 103 18 153/90 (111) 92 Room Air 11/20/17 22:54 36.9 99 20 173/99 (123) 91 Room Air 11/20/17 19:53 36.5 103 20 135/84 98 Room Air 11/20/17 19:18 102 21 116/95 96 11/20/17 18:18 93 11/20/17 17:45 99 26 136/100 96 Room Air 11/20/17 16:31 78 16 135/109 96 Room Air 11/20/17 15:31 79 22 111/75 92 Room Air Physical Exam Notes: GENERAL: In no distress, sleeping in bed. Arousable. One word responses. HENT: + edema and erythema over LEFT orbital area with crusting/scabbing vesicular lesions in V1 trigeminal distribution. +purulent drainage from closed lid. . NECK: Supple. Full range of motion. no JVD RESPIRATORY: Clear to auscultation. CARDIAC: Regular rate, normal rhythm. Extremities warm and well perfused. Pulses equal. ABDOMEN: Soft, non-distended. No tenderness to palpation. No rebound or guarding. No masses. LOWER EXTREMITIES: Calves are equal size bilaterally and moderately-tender. No edema. No discoloration. NEURO: Somnolent but arousable. Follows commands mostly. SKIN: edema at eye as above, vesicular lesions as above Laboratory Results 11/21/17 07:48 Red Blood Count 4.31, Mean Corpuscular Volume 97.7, Mean Corpuscular Hemoglobin 31.8, Mean Corpuscular Hemoglobin Concent 32.5, Mean Platelet Volume 9.0, Neutrophils (%) (Auto) 72.0, Lymphocytes (%) (Auto) 19.7, Monocytes (%) (Auto) 6.5, Eosinophils (%) (Auto) 1.0, Basophils (%) (Auto) 0.1, Neutrophils # (Auto) 6.03, Lymphocytes # (Auto) 1.65, Monocytes # (Auto) 0.54, Eosinophils # (Auto) 0.08, Basophils # (Auto) 0.01 11/21/17 07:48 Test 11/21/17 07:48 11/21/17 11:23 White Blood Count 8.37 K/uL (4.8-10.8) Red Blood Count 4.31 M/uL (4.2-5.4) Hemoglobin 13.7 g/dL (12.0-16.0) Hematocrit 42.1 % (37-47) Mean Corpuscular Volume 97.7 fL (80-100) Mean Corpuscular Hemoglobin 31.8 pg (25-34) Mean Corpuscular Hemoglobin Concent 32.5 g/dl (32-36) Platelet Count 149 K/uL (130-400) Mean Platelet Volume 9.0 fL (7.4-10.4) Neutrophils (%) (Auto) 72.0 % Lymphocytes (%) (Auto) 19.7 % Monocytes (%) (Auto) 6.5 % Eosinophils (%) (Auto) 1.0 % Basophils (%) (Auto) 0.1 % Neutrophils # (Auto) 6.03 K/uL (1.4-6.5) Lymphocytes # (Auto) 1.65 K/uL (1.2-3.4) Monocytes # (Auto) 0.54 K/uL (0.11-0.59) Eosinophils # (Auto) 0.08 K/uL (0-0.5) Basophils # (Auto) 0.01 K/uL (0-0.2) RDW Standard Deviation 55.9 fL (36.4-46.3) RDW Coefficient of Variation 15.7 % (11.5-14.5) Immature Granulocyte % (Auto) 0.7 % Immature Granulocyte # (Auto) 0.06 K/uL (0.00-0.02) Anion Gap 7.0 mmol/L (3-11) Est Creatinine Clear Calc Drug Dose 53.1 ml/min Estimated GFR () 74.0 Estimated GFR (Non- 63.8 BUN/Creatinine Ratio 18.7 (10-20) Calcium Level 8.7 mg/dl (8.5-10.1) Bedside Glucose 128 mg/dl (70-90) Assessment and Plan 82y/oF presented from [facility] for worsening L eye erythema/infection x 1 week. Admitted for L periorbital cellulitis and concern for herpes zoster opthalmicus. PMhx of dementia, CVA, Afib, MV insufficiency, HTN, HLD, DM, GERD, hypothyroidism, bullous pemphigoid, TPMT enzyme deficiency, dysphagia, gait abnormality and depression L eye [place]-orbital cellulitis, possible herpes zoster ophthalmicus vs exacerbation of bullous pemphigoid - afebrile, no WBC elevation - Face CT: moderate preseptal subcutaneous edema of L orbit concerning for periorbital cellulitis - Started on Vanc and Zosyn - Started on acyclovir IV 600mg Q8H - Pain control: tylenol, norco and oxycodone prn - Opthalmology consulted - case mgmt obtaining records from [facility] - was being followed by dermatology there, biopsies done. Bullous Pemphigoid - Continued prednisone 30mg daily and hydroxyzine 25mg QID prn - Continued Azathioprine 50 BID - doxycycline held on admission. Abx as above. Hyponatremia - chronic - Na is 135 - Continued NaCl tabs- no acute issues Afib/HLD/HTN - Continued digoxin 0.125, diltiazem 120mg, metoprolol 25mg BID - Continued xarelto 20mg daily -- given declining renal function, per pharmacy' s rec 15 mg daily may be considered - Continued simvastatin 10mg qhs GERD - continued ranitidine 150 qhs Depression - Continued bupropion 75 daily Dementia - Continued memantine 10mg BID Hypothyroidism - continued levothyroxine 50 mcg dailybb DM - continued detemir 10 units daily - started on SSI novolog DVT prop: xarelto 20mg daily Code: Full Dispo: 4E - [facility] bed hold, pending clinical improvement acetaminophen (acetaminophen 325 mg oral tablet) 650 mg PO q4h PRN pain/fever azaTHIOprine (azaTHIOprine 50 mg oral tablet) 50 mg PO Daily with food bisacodyl (bisacodyl 10 mg rectal suppository) 10 mg CO PRN: Constipation bisacodyl (Dulcolax Laxative (vegetable base) 10 mg rectal suppository) 10 mg CO Daily PRN: as needed for constipation buPROPion 75 mg PO Daily calcium carbonate-magnesium chloride (MagDelay 112 mg-64 mg oral delayed release tablet) 1 tab PO bid clobetasol topical (clobetasol 0.05% topical ointment) 1 appl topical bid to arms, legs, torso digoxin (digoxin 125 mcg (0.125 mg) oral tablet) 125 mcg PO Daily digoxin (digoxin 125 mcg (0.125 mg) oral tablet) 125 mcg PO Daily dilTIAZem (dilTIAZem 120 mg/24 hours oral capsule, extended release) 120 mg PO Daily docusate-senna (Senna Plus 50 mg-8.6 mg oral tablet) 1 tab PO bid doxycycline (doxycycline monohydrate 100 mg oral capsule) 100 mg PO bid take with food to minimize abdominal discomfort ferrous sulfate (ferrous sulfate 325 mg (65 mg elemental iron) oral tablet) 325 mg PO Daily hydrOXYzine (hydrOXYzine hydrochloride 25 mg oral tablet) 25 mg PO qid PRN: as needed for itching levothyroxine (levothyroxine 50 mcg (0.05 mg) oral tablet) 50 mcg PO Daily magnesium hydroxide (Milk of Magnesia) 30 mL PO PRN memantine (memantine 10 mg oral tablet) 10 mg PO bid menthol-zinc oxide topical (Calmoseptine 0.44%-20.625% topical ointment) 1 appl topical bid metoprolol (metoprolol tartrate 25 mg oral tablet) 25 mg PO bid niacinamide (niacinamide 500 mg oral tablet) take one tab PO TID oxyCODONE (oxyCODONE 5 mg oral tablet) 5 mg PO q6h PRN: as needed for pain potassium chloride (potassium chloride extended release) 10 mEq PO bid predniSONE (predniSONE 10 mg oral tablet) 30 mg PO Daily with food raNITIdine (Zantac) 150 mg PO qhs rivaroxaban (Xarelto 20 mg oral tablet) 20 mg PO qPM simvastatin (simvastatin 10 mg oral tablet) 10 mg PO qhs sodium chloride (sodium chloride 1000 mg oral tablet) 2 g PO tid Current Inpatient Medications Medications (Trade) Dose Ordered Sig/Yonathan Route Start Time Stop Time Status Last Admin Dose Admin Ioversol (Optiray 320) 100 ml UD PRN IV 11/20/17 13:15 11/24/17 13:14 Acetaminophen (Tylenol Tab) 650 mg Q4H PRN PO 11/20/17 18:00 12/20/17 17:59 Al Hydrox/Mg Hydrox/Simethicone (Maalox Max Susp) 15 ml Q4H PRN PO 11/20/17 18:00 12/20/17 17:59 Magnesium Hydroxide (Milk Of Magnesia Susp) 30 ml Q6H PRN PO 11/20/17 18:00 12/20/17 17:59 Polyethylene (Miralax Powder Packet) 17 gm DAILY PRN PO 11/20/17 18:00 12/20/17 17:59 Ondansetron HCl (Zofran Inj) 4 mg Q6H PRN IV 11/20/17 18:00 12/20/17 17:59 Vancomycin HCl 1250 mg/Sodium Chloride 275 ml @ 125 mls/hr Q18H IV 11/21/17 06:00 12/01/17 05:59 11/21/17 05:47 125 MLS/HR Vancomycin HCl (Consult) 1 ea UD PRN N/A 11/20/17 18:00 12/20/17 17:59 Piperacillin Sod/ Tazobactam Sod 3.375 gm/Dextrose 115 ml @ 28.75 mls/ hr Q8H IV 11/20/17 22:00 11/30/17 17:59 11/21/17 05:46 28.75 MLS/HR Miscellaneous Information (Consult) 1 ea UD PRN N/A 11/20/17 18:00 12/20/17 17:59 Acetaminophen (Tylenol Tab) 1,000 mg DAILY PRN PO 11/20/17 18:00 12/20/17 17:59 Azathioprine (Imuran Tab) 50 mg BID PO 11/20/17 20:00 12/20/17 20:59 11/21/17 08:53 50 MG Bupropion HCl (Wellbutrin Tab) 75 mg QAM PO 11/21/17 08:00 12/21/17 08:59 7/24/18 08:50 75 MG Digoxin (Lanoxin Tab) 0.125 mg DAILY@1600 PO 11/21/17 16:00 12/21/17 15:59 Ferrous Sulfate (Feosol Tab) 325 mg QAM PO 11/21/17 08:00 12/21/17 08:59 11/21/17 08:54 325 MG Acetaminophen/ Hydrocodone Bitart ([place] 5/325 Tab) 1 tab DAILY PRN PO 11/20/17 18:00 12/04/17 17:59 Hydroxyzine HCl (Vistaril Tab) 25 mg QID PO 11/20/17 20:00 12/20/17 20:59 11/21/17 12:19 25 MG Levothyroxine Sodium (Synthroid Tab) 50 mcg DAILYBB PO 11/21/17 06:30 12/21/17 06:59 11/21/17 05:48 50 MCG Magnesium Chloride (Slow-Mag Tab) 64 mg BID PO 11/20/17 20:00 12/20/17 20:59 11/21/17 08:55 64 MG Memantine (Namenda Tab) 10 mg BID PO 11/20/17 20:00 12/20/17 20:59 11/21/17 08:52 10 MG Metoprolol Tartrate (Lopressor Tab) 25 mg BID PO 11/20/17 20:00 12/20/17 20:59 11/21/17 08:53 25 MG Oxycodone HCl (Roxicodone Immediate Rel Tab) 5 mg Q6H PRN PO 11/20/17 18:00 12/04/17 17:59 11/21/17 08:49 5 MG Oxycodone HCl (Roxicodone Immediate Rel Tab) 10 mg Q6 PRN PO 11/20/17 18:00 12/04/17 17:59 Potassium Chloride (Klor-Con M10) 10 meq BID PO 11/20/17 20:00 12/20/17 20:59 11/21/17 08:52 10 MEQ Prednisone (PredniSONE TAB) 27.5 mg DAILY PO 11/21/17 08:00 12/21/17 08:59 11/21/17 08:51 27.5 MG Ranitidine HCl (zANTac TAB) 150 mg HS PO 11/20/17 21:00 8/22/18 20:59 11/20/17 21:43 150 MG Rivaroxaban (Xarelto Tab) 20 mg DAILY PO 11/21/17 08:00 12/21/17 08:59 11/21/17 08:50 20 MG Senna/Docusate Sodium (Senokot S Tab) 1 tab BID PO 11/20/17 20:00 12/20/17 20:59 11/21/17 08:52 1 TAB Simvastatin (Zocor Tab) 10 mg QPM PO 11/20/17 21:00 12/20/17 20:59 11/20/17 21:43 10 MG Sodium Chloride (Sodium Chloride Tab) 2 gm TID PO 11/20/17 20:00 12/20/17 20:59 11/21/17 08:54 2 GM Diltiazem HCl (Dilacor Xr Cap) 120 mg DAILY PO 11/21/17 08:00 12/21/17 08:59 11/21/17 10:14 120 MG Insulin Detemir (Levemir Flexpen/ FlexTouch) 10 units DAILY SQ 11/21/17 08:00 12/21/17 08:59 11/21/17 09:00 10 UNITS Miscellaneous Information (Order Awaiting Action) 1 ea QS N/A 11/21/17 00:00 12/21/17 00:00 Insulin Aspart (novoLOG ASPART) SLIDING SCALE G... ACHS SC 11/20/17 21:00 12/20/17 20:59 Glucose (Glucose 40% Gel) 15-30 GRAMS 15 GRAMS... UD PRN PO 11/20/17 19:15 12/20/17 19:14 Glucose (Glucose Chew Tab) 4-8 Tablets 4 Tabl... UD PRN PO 11/20/17 19:15 12/20/17 19:14 Dextrose (Dextrose 50% 50ML Syringe) 25-50ML 25ML FOR ... UD PRN IV 11/20/17 19:15 12/20/17 19:14 Glucagon (Glucagon Inj) 1 mg UD PRN IM 11/20/17 19:15 12/20/17 19:14 Carbohydrates (Carbohydrates For Hypoglycemia) 15-30 GRAMS 15 grams if BSG 54-69... UD PRN PO 11/20/17 19:15 12/20/17 19:14 Acyclovir Sodium 600 mg/Dextrose 112 ml @ 110 mls/hr Q12H IV 11/21/17 04:00 12/01/17 03:59 11/21/17 04:03 110 MLS/HR Resident Physician Supervision Note: I interviewed and examined the patient. Discussed with Dr. Blue and agree with findings and plan as documented in the note. Any exceptions or clarifications are listed here: None Documented By: Jalen Buckner no meaningful HPI or ROS, although she denies pain at the time i see her vitals noted nad breathing unlabored no pallor or icterus. L eye quite swollen , blistered and crusted lesions. can open eye, cant' follow commands to green tire inspector vision but seems to interact as though vision grossly intact. pupil round and reactive, sclera appears clear. V1 shingles w superimposed preseptal cellulitis -acyclovir, vanco, zosyn, supportive care -appreciate ophthalmology input and will add prednisolone -supportive care otherwise as above Continued [facility] stay due to: multiple IV medications needed Resident Tracking Resident Involvement: Resident Care Provided Care Provided: Adult Hospital Medicine
[2017-11-21 10:51] VITALS: BP 173/82; PULSE 84; TEMP 34.7; O2SAT 90
[2017-11-21 11:37] VITALS: TEMP 37.1
--- NOTE | 2017-11-21 13:04 | Medical Consult ---
Consultation Date of Consultation: Nov 21, 2017. Attending Physician: Jalen Buckner D.O. Reason for Consultation: Herpes Zoster left eye History of Present Illness Patient presented to the ER yesterday with left eye pain for 1 week. Patient was noted to have scaling rash typical for shingles. Significant swelling and discharge raised the possibility of a secondary bacterial infection. Patient was admitted and started IV Acyclovir, Zosyn, and Vancomycin. Patient has dementia and is unable to provide me with any history. Past Medical/Surgical History Medical Problems: (1) Periorbital cellulitis of left eye Status: Acute (2) Stroke Status: Acute Family History Patient reports no known family medical history. Social History Smoking Status: Never Smoker Drug Use: none Marital Status: single Housing Status: lives alone, [employer] Occupation Status: retired Allergies Coded Allergies: No Known Allergies (Verified , NONE, 10/13/16) Home Medications Azathioprine (Azathioprine), 50 MG PO BID Bupropion (Wellbutrin), 75 MG PO QAM Dicloxacillin Sodium (Dynapen), 250 MG PO Q6H Digoxin (Digoxin), 0.125 MG PO QAM Diltiazem Hcl (Diltiazem Hcl), 120 MG PO QAM Doxycycline Monohydrate (Monodox), 100 MG PO BID Ferrous Sulfate (Ferrous Sulfate), 325 MG PO QAM Hydroxyzine HCl (Hydroxyzine HCl), 25 MG PO QID Insulin Aspart (Novolog), 5 UNITS SQ DAILY Insulin Detemir (Levemir), 10 UNITS SQ DAILY Levothyroxine Sodium (Levothyroxine Sodium), 50 MCG PO DAILY Magnesium Chloride (Slow-Mag Tab), 64 MG PO BID Memantine (Namenda), 10 MG PO BID Metoprolol Tartrate (Lopressor) (Lopressor), 25 MG PO BID Niacinamide (Endur-Amide), 500 MG PO TID Potassium Chloride (Micro-K Ext Rel), 10 MEQ PO BID Prednisone (Prednisone), 27.5 MG PO DAILY Ranitidine (Zantac), 150 MG PO HS Rivaroxaban (Xarelto), 20 MG PO DAILY Sennosides-Docusate Sodium (Senna Plus), 1 TAB PO BID Simvastatin (Zocor), 10 MG PO QPM Sodium Chloride (Sodium Chloride), 2 GM PO TID Tobramycin (Ophth) (Tobramycin), 2 DROPS OPL Q6H Current Inpatient Medications Current Inpatient Medications Medications (Trade) Dose Ordered Sig/Yonathan Route Start Time Stop Time Status Last Admin Dose Admin Ioversol (Optiray 320) 100 ml UD PRN IV 11/20/17 13:15 11/24/17 13:14 Acetaminophen (Tylenol Tab) 650 mg Q4H PRN PO 11/20/17 18:00 12/20/17 17:59 Al Hydrox/Mg Hydrox/Simethicone (Maalox Max Susp) 15 ml Q4H PRN PO 11/20/17 18:00 12/20/17 17:59 Magnesium Hydroxide (Milk Of Magnesia Susp) 30 ml Q6H PRN PO 11/20/17 18:00 12/20/17 17:59 Polyethylene (Miralax Powder Packet) 17 gm DAILY PRN PO 11/20/17 18:00 12/20/17 17:59 Ondansetron HCl (Zofran Inj) 4 mg Q6H PRN IV 11/20/17 18:00 12/20/17 17:59 Vancomycin HCl 1250 mg/Sodium Chloride 275 ml @ 125 mls/hr Q18H IV 11/21/17 06:00 12/01/17 05:59 11/21/17 05:47 125 MLS/HR Vancomycin HCl (Consult) 1 ea UD PRN N/A 11/20/17 18:00 12/20/17 17:59 Piperacillin Sod/ Tazobactam Sod 3.375 gm/Dextrose 115 ml @ 28.75 mls/ hr Q8H IV 11/20/17 22:00 11/30/17 17:59 11/21/17 05:46 28.75 MLS/HR Miscellaneous Information (Consult) 1 ea UD PRN N/A 11/20/17 18:00 12/20/17 17:59 Acetaminophen (Tylenol Tab) 1,000 mg DAILY PRN PO 11/20/17 18:00 12/20/17 17:59 Azathioprine (Imuran Tab) 50 mg BID PO 11/20/17 20:00 12/20/17 20:59 11/21/17 08:53 50 MG Bupropion HCl (Wellbutrin Tab) 75 mg QAM PO 11/21/17 08:00 12/21/17 08:59 11/21/17 08:50 75 MG Digoxin (Lanoxin Tab) 0.125 mg DAILY@1600 PO 11/21/17 16:00 12/21/17 15:59 Ferrous Sulfate (Feosol Tab) 325 mg QAM PO 11/21/17 08:00 12/21/17 08:59 11/21/17 08:54 325 MG Acetaminophen/ Hydrocodone Bitart ([place] 5/325 Tab) 1 tab DAILY PRN PO 11/20/17 18:00 12/04/17 17:59 Hydroxyzine HCl (Vistaril Tab) 25 mg QID PO 11/20/17 20:00 12/20/17 20:59 11/21/17 12:19 25 MG Levothyroxine Sodium (Synthroid Tab) 50 mcg DAILYBB PO 11/21/17 06:30 12/21/17 06:59 11/21/17 05:48 50 MCG Magnesium Chloride (Slow-Mag Tab) 64 mg BID PO 11/20/17 20:00 12/20/17 20:59 11/21/17 08:55 64 MG Memantine (Namenda Tab) 10 mg BID PO 11/20/17 20:00 12/20/17 20:59 11/21/17 08:52 10 MG Metoprolol Tartrate (Lopressor Tab) 25 mg BID PO 11/20/17 20:00 12/20/17 20:59 11/21/17 08:53 25 MG Oxycodone HCl (Roxicodone Immediate Rel Tab) 5 mg Q6H PRN PO 11/20/17 18:00 12/04/17 17:59 11/21/17 08:49 5 MG Oxycodone HCl (Roxicodone Immediate Rel Tab) 10 mg Q6 PRN PO 11/20/17 18:00 12/04/17 17:59 Potassium Chloride (Klor-Con M10) 10 meq BID PO 11/20/17 20:00 12/20/17 20:59 11/21/17 08:52 10 MEQ Prednisone (PredniSONE TAB) 27.5 mg DAILY PO 11/21/17 08:00 12/21/17 08:59 11/21/17 08:51 27.5 MG Ranitidine HCl (zANTac TAB) 150 mg HS PO 11/20/17 21:00 12/20/17 20:59 11/20/17 21:43 150 MG Rivaroxaban (Xarelto Tab) 20 mg DAILY PO 11/21/17 08:00 12/21/17 08:59 11/21/17 08:50 20 MG Senna/Docusate Sodium (Senokot S Tab) 1 tab BID PO 11/20/17 20:00 12/20/17 20:59 11/21/17 08:52 1 TAB Simvastatin (Zocor Tab) 10 mg QPM PO 11/20/17 21:00 12/20/17 20:59 11/20/17 21:43 10 MG Sodium Chloride (Sodium Chloride Tab) 2 gm TID PO 11/20/17 20:00 12/20/17 20:59 11/21/17 08:54 2 GM Diltiazem HCl (Dilacor Xr Cap) 120 mg DAILY PO 11/21/17 08:00 12/21/17 08:59 11/21/17 10:14 120 MG Insulin Detemir (Levemir Flexpen/ FlexTouch) 10 units DAILY SQ 11/21/17 08:00 12/21/17 08:59 11/21/17 09:00 10 UNITS Miscellaneous Information (Order Awaiting Action) 1 ea QS N/A 11/21/17 00:00 12/21/17 00:00 Insulin Aspart (novoLOG ASPART) SLIDING SCALE G... ACHS SC 11/20/17 21:00 12/20/17 20:59 Glucose (Glucose 40% Gel) 15-30 GRAMS 15 GRAMS... UD PRN PO 11/20/17 19:15 12/20/17 19:14 Glucose (Glucose Chew Tab) 4-8 Tablets 4 Tabl... UD PRN PO 11/20/17 19:15 12/20/17 19:14 Dextrose (Dextrose 50% 50ML Syringe) 25-50ML 25ML FOR ... UD PRN IV 11/20/17 19:15 12/20/17 19:14 Glucagon (Glucagon Inj) 1 mg UD PRN IM 11/20/17 19:15 12/20/17 19:14 Carbohydrates (Carbohydrates For Hypoglycemia) 15-30 GRAMS 15 grams if BSG 54-69... UD PRN PO 11/20/17 19:15 12/20/17 19:14 Acyclovir Sodium 600 mg/Dextrose 112 ml @ 110 mls/hr Q12H IV 11/21/17 04:00 12/01/17 03:59 11/21/17 04:03 110 MLS/HR Physical Exam Date Time Temp Pulse Resp B/P (MAP) Pulse Ox O2 Delivery O2 Flow Rate FiO2 11/21/17 11:37 37.1 11/21/17 10:51 34.7 84 18 173/82 (112) 90 11/21/17 08:00 Room Air 11/21/17 07:46 36.4 103 18 153/90 (111) 92 Room Air 11/20/17 22:54 36.9 99 20 173/99 (123) 91 Room Air 11/20/17 19:53 36.5 103 20 135/84 98 Room Air 11/20/17 19:18 102 21 116/95 96 11/20/17 18:18 93 11/20/17 17:45 99 26 136/100 96 Room Air 11/20/17 16:31 78 16 135/109 96 Room Air 11/20/17 15:31 79 22 111/75 92 Room Air 11/20/17 13:14 77 20 111/75 97 Room Air 11/20/17 13:07 96 Room Air Vision 20/400 OU without correction on a near card. Motility full. Pupils equally reactive without APD. Pen light exam: clear corneas, lenses, deep and quiet AC, round and reactive irises, clear lens OU. Left eye some discharge and mild injection of the conjunctiva. Clear OD. Dilated fundus exam OS: normal retina, macula, vessels, and optic nerve. Scaling rash with erythema and swelling predominately of left upper lid, brow, and scalp. Laboratory Results Last 24 Hours Test 11/20/17 13:35 11/20/17 13:40 11/20/17 21:55 11/21/17 07:48 Bedside Hemoglobin 13.9 g/dl Bedside Hematocrit 41 % Bedside Sodium 134 mEq/L Bedside Potassium 4.9 mEq/L Bedside Chloride 97 mEq/L Bedside Total CO2 29 mEq/l Anion Gap 14.0 mmol/L 8.0 mmol/L 7.0 mmol/L Bedside Blood Urea Nitrogen 28 mg/dl Bedside Creatinine 1.0 mg/dl Bedside Glucose (other) 205 mg/dl Bedside Ionized Calcium (Samia) 1.14 mmol/l White Blood Count 10.12 K/uL 8.37 K/uL Red Blood Count 4.11 M/uL 4.31 M/uL Hemoglobin 13.2 g/dL 13.7 g/dL Hematocrit 40.9 % 42.1 % Mean Corpuscular Volume 99.5 fL 97.7 fL Mean Corpuscular Hemoglobin 32.1 pg 31.8 pg Mean Corpuscular Hemoglobin Concent 32.3 g/dl 32.5 g/dl Platelet Count 184 K/uL 149 K/uL Mean Platelet Volume 8.9 fL 9.0 fL Neutrophils (%) (Auto) 88.1 % 72.0 % Lymphocytes (%) (Auto) 8.4 % 19.7 % Monocytes (%) (Auto) 2.5 % 6.5 % Eosinophils (%) (Auto) 0.4 % 1.0 % Basophils (%) (Auto) 0.1 % 0.1 % Neutrophils # (Auto) 8.92 K/uL 6.03 K/uL Lymphocytes # (Auto) 0.85 K/uL 1.65 K/uL Monocytes # (Auto) 0.25 K/uL 0.54 K/uL Eosinophils # (Auto) 0.04 K/uL 0.08 K/uL Basophils # (Auto) 0.01 K/uL 0.01 K/uL RDW Standard Deviation 58.0 fL 55.9 fL RDW Coefficient of Variation 16.0 % 15.7 % Immature Granulocyte % (Auto) 0.5 % 0.7 % Immature Granulocyte # (Auto) 0.05 K/uL 0.06 K/uL Sodium Level 135 mmol/L 135 mmol/L Potassium Level 4.9 mmol/L 3.7 mmol/L Chloride Level 99 mmol/L 101 mmol/L Carbon Dioxide Level 29 mmol/L 27 mmol/L Blood Urea Nitrogen 28 mg/dl 16 mg/dl Creatinine 1.04 mg/dl 0.85 mg/dl Est Creatinine Clear Calc Drug Dose 43.4 ml/min 53.1 ml/min Estimated GFR () 57.9 74.0 Estimated GFR (Non- 50.0 63.8 BUN/Creatinine Ratio 26.5 18.7 Random Glucose 199 mg/dl 104 mg/dl Lactic Acid Level 2.0 mmol/L Calcium Level 9.3 mg/dl 8.7 mg/dl Total Bilirubin 1.0 mg/dl Aspartate Amino Transf (AST/SGOT) 21 U/L Alanine Aminotransferase (ALT/SGPT) 26 U/L Alkaline Phosphatase 47 U/L Total Protein 6.9 gm/dl Albumin 3.2 gm/dl Globulin 3.7 gm/dl Albumin/Globulin Ratio 0.9 Bedside Glucose 137 mg/dl Test 11/21/17 07:55 11/21/17 11:23 Bedside Glucose 112 mg/dl 128 mg/dl Assessment & Plan Impression: Herpes Zoster Ophthalmicus left side with possible secondary bacterial cellulitis. Plan: Continue with IV Acyclovir, Zosyn, and Vancomycin. Because of limitation of bedside exam I cannot rule out inflammation such as keratitis or iritis. I would add Prednisolone 1% drops q4hrs as will treat any uveitis with very little downside if uveitis not present. Please continue drops until patient discharged. Will need to follow up as outpatient.
[2017-11-21 14:00] VITALS: O2SAT 90
[2017-11-21 14:27] VITALS: Ht 165.1 cm; Wt 79.4 kg
[2017-11-21 14:47] VITALS: BP 160/84; PULSE 84; TEMP 37; O2SAT 90
[2017-11-21] MEDS: DIGOXIN 0.125 MG TAB PO SCH (17:02)
[2017-11-21] MEDS: PrednisoLONE ACET 1% OP SUSP 5 ML BTL OPL SCH (19:35)
[2017-11-21] MEDS: SIMVASTATIN 10 MG TAB PO SCH (19:36)
[2017-11-21] MEDS: RANITIDINE HCL 150 MG TAB PO SCH (19:36)
[2017-11-21] MEDS ORDERED: NURSING VERBAL MED ORDER ONE (20:00)
[2017-11-21] MEDS ORDERED: MICONAZOLE NITRATE POWDER 43 GM EXT PRN (20:00)
[2017-11-21 23:00] VITALS: BP 146/83; PULSE 90; TEMP 36.5; O2SAT 97
[2017-11-22] MEDS: PrednisoLONE ACET 1% OP SUSP 5 ML BTL OPL SCH ×7 (00:11→23:53)
[2017-11-22] MEDS: VANCOMYCIN IV 1,250 MG in SODIUM CHLORIDE 0.9% 250ML 250 ML IV SCH ×2 (01:12→19:28)
[2017-11-22] MEDS: ACYCLOVIR SOD INJ 600 MG in DEXTROSE 5% 100ML 100 ML IV SCH ×2 (03:39→15:23)
[2017-11-22] MEDS: PIPERACILL/TAZOBAC IV 3.375 GM in DEXTROSE 5% 100ML 100 ML IV SCH ×2 (06:23→14:25)
[2017-11-22] MEDS: LEVOTHYROXINE 50 MCG TAB PO SCH (06:24)
[2017-11-22 07:15] LABS: BASO % 0.1 %; BASO ABS # 0.01 K/uL (0-0.2); EOS % 1.2 %; HEMATOCRIT 43.2 % (37-47); HEMOGLOBIN 13.8 g/dL (12.0-16.0); IG# 0.07 K/uL (0.00-0.02); LYMPH % 20.5 %; LYMPH ABS # 1.67 K/uL (1.2-3.4); MEAN CELL VOLUME 98.4 fL (80-100); MEAN CORPUSCULAR HEMOGLOBIN 31.4 pg (25-34); MEAN CORPUSCULAR HGB CONC 31.9 g/dl (32-36); MEAN PLATELET VOLUME 9.2 fL (7.4-10.4); MONO ABS # 0.65 K/uL (0.11-0.59); NEUT % 69.3 %; NEUT ABS # 5.65 K/uL (1.4-6.5); PLATELET COUNT 171 K/uL (130-400); RED CELL DISTRIBUTION WIDTH CV 15.6 % (11.5-14.5); RED CELL DISTRIBUTION WIDTH SD 56.5 fL (36.4-46.3); WHITE BLOOD COUNT 8.15 K/uL (4.8-10.8)
[2017-11-22 08:05] LABS: CREATININE 0.87 mg/dl (0.60-1.20)
[2017-11-22] MEDS: MAGNESIUM CHLORIDE 64MG DELAYED REL TAB PO SCH ×2 (08:14→20:09)
[2017-11-22] MEDS: hydrOXYzine HCL 25 MG TAB PO SCH ×4 (08:14→20:11)
[2017-11-22] MEDS: METOPROLOL TARTRATE 25 MG TAB PO SCH ×2 (08:15→20:10)
[2017-11-22] MEDS: SODIUM CHLORIDE 1 GM TAB PO SCH ×3 (08:16→20:09)
[2017-11-22] MEDS: FERROUS SULFATE 325 MG TAB PO SCH (08:16)
[2017-11-22] MEDS: MEMANTINE 10 MG TAB PO SCH ×2 (08:16→20:09)
[2017-11-22] MEDS: RIVAROXABAN 20 MG TAB PO SCH (08:17)
[2017-11-22] MEDS: DOCUSATE SODIUM/SENNA 50/8.6MG TAB PO SCH ×2 (08:17→20:10)
[2017-11-22] MEDS: AZATHIOPRINE 50 MG TAB PO SCH ×2 (08:17→20:10)
[2017-11-22] MEDS: POTASSIUM CHLORIDE 10 MEQ TABCR PO SCH ×2 (08:17→20:09)
[2017-11-22] MEDS: DILTIAZEM HCL 120 MG ER CAP PO SCH (08:18)
[2017-11-22 08:23] VITALS: BP 146/77; PULSE 81; TEMP 36.4; O2SAT 99
[2017-11-22] MEDS: INSULIN DETEMIR FLEXPEN/FLEX TOUCH 100 UNITS/ML 3ML SQ SCH (08:26)
[2017-11-22] MEDS: INSULIN ASPART 100 UNITS/ML 3 ML PEN SC SCH ×4 (08:56→21:10)
--- NOTE | 2017-11-22 14:35 | Family Medicine Progress Note ---
Progress Note Date of Service Nov 22, 2017. Subjective TINY overnight. Eyes open, talking today. She says she goes from very sleepy to awake at times during the day Tolerating PO. ROS See HPI for pertinent positives and negatives. Otherwise denies new headache, chest pain, dyspnea, abdominal pain, loose or bloody stools, dysuria, or numbness tingling in extremities. Objective Vital Signs Date Time Temp Pulse Resp B/P (MAP) Pulse Ox O2 Delivery O2 Flow Rate FiO2 11/22/17 08:35 Room Air 11/22/17 08:23 36.4 81 18 146/77 (100) 99 Room Air 11/22/17 00:01 Room Air 11/21/17 23:00 36.5 90 19 146/83 (104) 97 Room Air 11/21/17 17:02 72 11/21/17 16:00 Room Air 11/21/17 14:47 37.0 84 18 160/84 (109) 90 Physical Exam Notes: GENERAL: In no distress, more awake today. Alert to self not to time or place. HENT: + edema and erythema over LEFT orbital area with crusting/scabbing vesicular lesions in V1 trigeminal distribution. +purulent drainage from left eye lid. . NECK: tender to palpation on left sternocleidomastoid muscle RESPIRATORY: Clear to auscultation. CARDIAC: Regular rate, normal rhythm. Extremities warm and well perfused. Pulses equal. ABDOMEN: Soft, non-distended. No tenderness to palpation. LOWER EXTREMITIES: Calves are equal size bilaterally and moderately-tender. No edema. No discoloration. NEURO: Somnolent but arousable. Follows commands. CN II-XII in tact. SKIN: edema at eye as above, vesicular lesions as above Laboratory Results 11/22/17 06:32 Red Blood Count 4.39, Mean Corpuscular Volume 98.4, Mean Corpuscular Hemoglobin 31.4, Mean Corpuscular Hemoglobin Concent 31.9, Mean Platelet Volume 9.2, Neutrophils (%) (Auto) 69.3, Lymphocytes (%) (Auto) 20.5, Monocytes (%) (Auto) 8.0, Eosinophils (%) (Auto) 1.2, Basophils (%) (Auto) 0.1, Neutrophils # (Auto) 5.65, Lymphocytes # (Auto) 1.67, Monocytes # (Auto) 0.65, Eosinophils # (Auto) 0.10, Basophils # (Auto) 0.01 11/22/17 06:32 Test 11/22/17 06:32 11/22/17 11:51 White Blood Count 8.15 K/uL (4.8-10.8) Red Blood Count 4.39 M/uL (4.2-5.4) Hemoglobin 13.8 g/dL (12.0-16.0) Hematocrit 43.2 % (37-47) Mean Corpuscular Volume 98.4 fL (80-100) Mean Corpuscular Hemoglobin 31.4 pg (25-34) Mean Corpuscular Hemoglobin Concent 31.9 g/dl (32-36) Platelet Count 171 K/uL (130-400) Mean Platelet Volume 9.2 fL (7.4-10.4) Neutrophils (%) (Auto) 69.3 % Lymphocytes (%) (Auto) 20.5 % Monocytes (%) (Auto) 8.0 % Eosinophils (%) (Auto) 1.2 % Basophils (%) (Auto) 0.1 % Neutrophils # (Auto) 5.65 K/uL (1.4-6.5) Lymphocytes # (Auto) 1.67 K/uL (1.2-3.4) Monocytes # (Auto) 0.65 K/uL (0.11-0.59) Eosinophils # (Auto) 0.10 K/uL (0-0.5) Basophils # (Auto) 0.01 K/uL (0-0.2) RDW Standard Deviation 56.5 fL (36.4-46.3) RDW Coefficient of Variation 15.6 % (11.5-14.5) Immature Granulocyte % (Auto) 0.9 % Immature Granulocyte # (Auto) 0.07 K/uL (0.00-0.02) Est Creatinine Clear Calc Drug Dose 51.9 ml/min Estimated GFR () 71.9 Estimated GFR (Non- 62.0 Bedside Glucose 128 mg/dl (70-90) Assessment and Plan 82y/oF presented from [facility] for worsening L eye erythema/infection x 1 week. Admitted for L periorbital cellulitis and concern for herpes zoster opthalmicus. PMhx of dementia, CVA, Afib, MV insufficiency, HTN, HLD, DM, GERD, hypothyroidism, bullous pemphigoid, TPMT enzyme deficiency, dysphagia, gait abnormality and depression L eye [place]-orbital cellulitis, possible herpes zoster ophthalmicus vs exacerbation of bullous pemphigoid - Face CT: moderate preseptal subcutaneous edema - Vanc and Zosyn, acyclovir IV 600mg Q8H - Pain control: tylenol, norco and oxycodone prn - Opthalmology consulted - case mgmt obtaining records from [facility] - was being followed by dermatology there, biopsies done. Bullous Pemphigoid - Continued prednisone 27.5mg daily and hydroxyzine 25mg QID prn - Continued Azathioprine 50 BID - doxycycline held on admission. Abx as above. Hyponatremia - chronic - Na is 135 - Continued NaCl tabs- no acute issues Afib/HLD/HTN - Continued digoxin 0.125, diltiazem 120mg, metoprolol 25mg BID - Continued xarelto 20mg daily -- given declining renal function, per pharmacy' s rec 15 mg daily may be considered - Continued simvastatin 10mg qhs GERD - continued ranitidine 150 qhs Depression - Continued bupropion 75 daily Dementia - Continued memantine 10mg BID Hypothyroidism - continued levothyroxine 50 mcg dailybb DM - continued detemir 10 units daily - started on SSI novolog DVT prop: xarelto 20mg daily Code: Full Dispo: 4E - [facility] bed hold, pending clinical improvement Resident Physician Supervision Note: I interviewed and examined the patient. Discussed with Dr. Blue and agree with findings and plan as documented in the note. Any exceptions or clarifications are listed here: None Documented By: Jalen Buckner no meaningful HPI or ROS vitals noted nad breathing unlabored no pallor or icterus. eye swelling appears sl less, erythema less pronounced, less swelling overall. blisters appearing to crust V1 shingles w superimposed preseptal cellulitis -acyclovir, vanco, zosyn, supportive care -appreciate ophthalmology input - added prednisolone -supportive care -appearing to improve - ?back to SNF tomorrow if continues to show improvement otherwise as above Continued [facility] stay due to: multiple IV medications needed Resident Tracking Resident Involvement: Resident Care Provided Care Provided: Adult Hospital Medicine
[2017-11-22] MEDS: DIGOXIN 0.125 MG TAB PO SCH (15:22)
[2017-11-22 15:37] VITALS: BP 101/66; PULSE 75; TEMP 36.1; O2SAT 97
[2017-11-22] MEDS ORDERED: VANCOMYCIN TROUGH ONE (17:30)
[2017-11-22] MEDS: RANITIDINE HCL 150 MG TAB PO SCH (20:09)
[2017-11-22] MEDS: SIMVASTATIN 10 MG TAB PO SCH (20:10)
[2017-11-22 22:57] VITALS: BP 133/90; PULSE 99; TEMP 36.1; O2SAT 96
[2017-11-23] MEDS: PrednisoLONE ACET 1% OP SUSP 5 ML BTL OPL SCH ×3 (04:11→12:10)
[2017-11-23] MEDS: ACYCLOVIR SOD INJ 600 MG in DEXTROSE 5% 100ML 100 ML IV SCH (04:11)
[2017-11-23] MEDS: PIPERACILL/TAZOBAC IV 3.375 GM in DEXTROSE 5% 100ML 100 ML IV SCH ×2 (04:11→12:09)
[2017-11-23] MEDS: LEVOTHYROXINE 50 MCG TAB PO SCH (05:12)
[2017-11-23 07:25] VITALS: BP 152/95; PULSE 72; TEMP 36.3; O2SAT 100
[2017-11-23 08:32] LABS: CREATININE 0.79 mg/dl (0.60-1.20)
[2017-11-23] MEDS: hydrOXYzine HCL 25 MG TAB PO SCH ×2 (08:46→12:10)
[2017-11-23] MEDS: DOCUSATE SODIUM/SENNA 50/8.6MG TAB PO SCH (08:47)
[2017-11-23] MEDS: METOPROLOL TARTRATE 25 MG TAB PO SCH (08:47)
[2017-11-23] MEDS: POTASSIUM CHLORIDE 10 MEQ TABCR PO SCH (08:48)
[2017-11-23] MEDS: MEMANTINE 10 MG TAB PO SCH (08:49)
[2017-11-23] MEDS: SODIUM CHLORIDE 1 GM TAB PO SCH ×2 (08:49→13:26)
[2017-11-23] MEDS: AZATHIOPRINE 50 MG TAB PO SCH (08:50)
[2017-11-23] MEDS: DILTIAZEM HCL 120 MG ER CAP PO SCH (08:51)
[2017-11-23] MEDS: RIVAROXABAN 20 MG TAB PO SCH (08:53)
[2017-11-23] MEDS: FERROUS SULFATE 325 MG TAB PO SCH (08:54)
[2017-11-23] MEDS: MAGNESIUM CHLORIDE 64MG DELAYED REL TAB PO SCH (08:54)
[2017-11-23] MEDS: INSULIN DETEMIR FLEXPEN/FLEX TOUCH 100 UNITS/ML 3ML SQ SCH (09:01)
[2017-11-23] MEDS: INSULIN ASPART 100 UNITS/ML 3 ML PEN SC SCH ×2 (09:01→13:26)
[2017-11-23] MEDS ORDERED: VANCOMYCIN IV 1,000 MG in SODIUM CHLORIDE 0.9% 250ML 250 ML IV SCH (12:00)
[2017-11-23] MEDS ORDERED: VALA500T60 PO (12:46)
[2017-11-23] MEDS ORDERED: AMOX500T PO (12:46)
--- NOTE | 2017-11-23 12:56 | Discharge Instructions ---
Discharge Instructions Date of Service Nov 23, 2017. Admission Reason for Admission: Periorbital Cellulitis Of Left Eye Discharge Discharge Diagnosis / Problem: Periorbital cellulitis, zoster ophthalmicus Discharge Goals Goal(s): Decrease discomfort, Improve function, Increase independence, Improve disease control, Learn about illness, Diagnostic testing, Therapeutic intervention Activity Recommendations Activity Level: Assistance Required Therapies: Physical Therapy, Occupational Therapy, Speech Therapy . Additional Information Patient informed of condition: Yes Advance Directives: No DNR: No Level of Care: Skilled Communicable Disease: No Prognosis: Stable Instructions / Follow-Up Instructions / Follow-Up 82y/oF presented from [facility] for worsening L eye erythema/infection x 1 week. Admitted for L periorbital cellulitis and concern for herpes zoster opthalmicus. PMhx of dementia, CVA, Afib, MV insufficiency, HTN, HLD, DM, GERD, hypothyroidism, bullous pemphigoid, TPMT enzyme deficiency, dysphagia, gait abnormality and depression L eye [place]-orbital cellulitis, possible herpes zoster ophthalmicus vs exacerbation of bullous pemphigoid - Face CT: moderate preseptal subcutaneous edema - on IV abx here (Vanc and Zosyn, acyclovir ) - ON DISCHARGE FINISH COURSE WRITTEN - VALACYCLOVIR 500MG 2 TABS TID X 8 DAYS - AUGMENTIN 500MG 1 TAB TID X 8 DAYS Bullous Pemphigoid - Continued prednisone 27.5mg daily and hydroxyzine 25mg QID prn - Continued Azathioprine 50 BID - doxycycline held Hyponatremia - chronic - Continue NaCl tabs- no acute issues Afib/HLD/HTN - Continue digoxin 0.125, diltiazem 120mg, metoprolol 25mg BID - Continue xarelto 20mg daily -- given declining renal function, per pharmacy' s rec 15 mg daily may be considered - Continue simvastatin 10mg qhs GERD - continue ranitidine 150 qhs Depression - Continue bupropion 75 daily Dementia - Continue memantine 10mg BID Hypothyroidism - continue levothyroxine 50 mcg dailybb DM - continue detemir 10 units daily - continue home meds DVT prop: xarelto 20mg daily given here Code: Full Dispo: 4E - [facility] bed hold, pending clinical improvement Current Hospital Diet Patient's current hospital diet: AHA Diet (Heart Healthy), Diabetes Type 2 Diet Discharge Diet Recommended Diet: AHA Diet (Heart Healthy), Diabetes Type 2 Diet Pending Studies Studies pending at discharge: no Medical Emergencies . Who to Call and When: Medical Emergencies: If at any time you feel your situation is an emergency, please call 911 immediately. . Non-Emergent Contact Non-Emergency issues call your: Primary Care Provider Call Non-Emergent contact if: your pain is concerning you, you have any medication questions . . "Provider Documentation" section prepared by Liliam Blue. . Core Measure Problem Core Measures: None Resident Tracking Resident Involvement: Resident Care Provided Care Provided: Adult Hospital Medicine
--- NOTE | 2017-11-23 13:12 | Discharge Summary ---
Discharge Summary Date of Service Nov 23, 2017. Discharge Summary Admission Date: Nov 20, 2017 at 18:33 Discharge Date: Nov 23, 2017 Discharge Disposition: [facility] facility Principal Diagnosis: Preseptal cellulitis secondary to zoster ophthalmicus Immunizations: Have You Had Influenza Vaccine: N/A Influenza Vaccine Date: Aug 18, 2008 History of Tetanus Vaccine?: Unknown History of Pneumococcal: Unknown Pneumococcal Date: Jun 21, 2012 History of Hepatitis B Vaccine: Unknown Procedures: FACIAL-MAXILLOFACIAL WITH HISTORY: 82 years-old Female L eye edema, erythema. Cannot open L eye acute pain and swelling about the left eye with soft tissue swelling. No reported trauma. COMPARISON: CT head 10/27/2016 TECHNIQUE: Multiple axial CT images of the soft tissues of the face and maxillofacial bones were obtained following the intravenous administration of 94 mL Optiray 320 IV contrast. A dose lowering technique was used consistent with the principals of COLTEN. FINDINGS: Senescent calcified scleral plaques are noted about the bilateral globes at the insertion of the medial rectus muscles bilaterally. Anterior and posterior chambers about the bilateral globes appear within normal limits. No evidence of scleritis. Mildly increased enhancement about the left lacrimal gland. There is moderate soft tissue swelling with subcutaneous edema about the left periorbital soft tissues with suggested preorbital cellulitis. No post septal or intraconal inflammation identified. No opaque foreign body or drainable fluid collection. No evidence of proptosis. The bilateral optic nerves and extraocular musculature otherwise appears to be within normal limits. Prominent calcified plaque about the left carotid bulb. No pathologically enlarged lymph nodes are identified. Age-related changes of the imaged brain with atrophy and chronic microvascular ischemic changes. Multilevel facet arthropathy and uncovertebral spurring. Polypoid mucosal thickening about the right maxillary sinus. Moderate ethmoid sinus disease with mild polypoid mucosal thickening of the inferior right frontal sinus. No acute facial bone fracture or dislocation. Degenerative changes about the bilateral temporal mandibular joints. IMPRESSION: 1. Moderate preseptal subcutaneous edema about the left orbit suggests periorbital cellulitis. No evidence of scleritis or post septal inflammation. No drainable fluid collection. 2. Senescent calcified scleral plaques of the bilateral globes at the medial rectus insertion sites. 3. Paranasal sinus disease as above. Consultations: Opthalmology - continue antibiotic and antiviral medication. Prednisolone eye drops added here until discharge. Will need OPHTHALMOLOGY follow up. Medication Reconciliation New Medications: Amoxicillin & Pot Clavulanate (Augmentin 500MG) 1 Tab Tab 1 TAB PO TID for 8 Days, #24 TAB Valacyclovir (Valtrex) 500 Mg Tab 2 TAB PO TID for 8 Days, #48 TAB 0 Refills Continued Medications: Acetaminophen (Tylenol) 500 Mg Tab 1000 MG PO DAILY PRN for Pain, TAB Azathioprine (Azathioprine) 50 Mg Tab 50 MG PO BID Bupropion (Wellbutrin) 75 Mg Tab 75 MG PO QAM, TAB Digoxin (Digoxin) 0.125 Mg Tab 0.125 MG PO QAM Diltiazem Hcl (Diltiazem Hcl) 120 Mg Tab 120 MG PO QAM Ferrous Sulfate (Ferrous Sulfate) 325 Mg Tab 325 MG PO QAM Hydrocodone/Acetaminophen 5MG/325MG ([place] 5MG/325MG) Tab 1 TABLET PO DAILY PRN for Pain, TAB PRN PAIN Hydroxyzine HCl (Hydroxyzine HCl) 25 Mg Tab 25 MG PO QID Insulin Aspart (Novolog) 100 Units/Ml Inj 5 UNITS SQ DAILY Insulin Detemir (Levemir) 100 Units/Ml Inj 10 UNITS SQ DAILY Insulin Lispro (Human) (Humalog) 100 Unit/Ml Inj sliding scale if 350 - 400 = 8 units 401 - 450 = 12 units 451 - 500 = 16 units 501 - 550 = 18 units before meals and at bedtime for DM while on prednisone Levothyroxine Sodium (Levothyroxine Sodium) 50 Mcg Tab 50 MCG PO DAILY for 90 Days, #90 TAB 3 Refills Magnesium Chloride (Slow-Mag Tab) 64 Mg Tabcr 64 MG PO BID, TAB Memantine (Namenda) 10 Mg Tab 10 MG PO BID, TAB Metoprolol Tartrate (Lopressor) (Lopressor) 25 Mg Tab 25 MG PO BID, TAB Niacinamide (Endur-Amide) 500 Mg Tab 500 MG PO TID Oxycodone Ir (Roxicodone Ir) 5 Mg Tab 5 MG PO Q6H PRN for Pain, TAB Oxycodone Ir (Roxicodone Ir) 5 Mg Tab 10 MG PO Q6 PRN for Severe Pain, TAB Potassium Chloride (Micro-K Ext Rel) 10 Meq Capcr 10 MEQ PO BID, CAP Prednisone (Prednisone) 5 Mg Tab 27.5 MG PO DAILY, TAB Ranitidine (Zantac) 150 Mg Tab 150 MG PO HS, TAB Rivaroxaban (Xarelto) 20 Mg Tab 20 MG PO DAILY, TAB Sennosides-Docusate Sodium (Senna Plus) 1 Tab Tab 1 TAB PO BID Simvastatin (Zocor) 10 Mg Tab 10 MG PO QPM, TAB Sodium Chloride (Sodium Chloride) 1 Gm Tab 2 GM PO TID Tobramycin (Ophth) (Tobramycin) 0.3 % [place] 2 DROPS OPL Q6H started 11/17 for 5 days Discontinued Medications: Dicloxacillin Sodium (Dynapen) 250 Mg Cap 250 MG PO Q6H, CAP started 11/17 for 7 days Doxycycline Monohydrate (Monodox) 100 Mg Cap 100 MG PO BID, CAP Discharge Exam No acute events overnight. Stable on day of discharge. Pain controlled with home pain medications regimen. Tolerating PO. ROS limited due to patient's mental state PHYSICAL EXAM GENERAL: In no distress, more awake today. Alert to self not to time or place. HENT: + edema and erythema over LEFT orbital area with crusting/scabbing vesicular lesions in V1 trigeminal distribution. NO purulent drainage from left eye lid. Improving since admission. RESPIRATORY: Clear to auscultation. CARDIAC: Regular rate, normal rhythm. Extremities warm and well perfused. Pulses equal. ABDOMEN: Soft, non-distended. No tenderness to palpation. LOWER EXTREMITIES: Calves are equal size bilaterally and moderately-tender. No edema. No discoloration. NEURO: Somnolent but arousable. Follows commands. CN II-XII in tact. SKIN: edema at eye as above, vesicular lesions as above Hospital Course 82y/oF presented from [facility] for worsening L eye erythema/infection x 1 week. Admitted for L periorbital cellulitis and concern for herpes zoster opthalmicus. PMhx of dementia, CVA, Afib, MV insufficiency, HTN, HLD, DM, GERD, hypothyroidism, bullous pemphigoid, TPMT enzyme deficiency, dysphagia, gait abnormality and depression L eye [place]-orbital cellulitis, likely 2/2 herpes zoster ophthalmicus - Face CT: moderate preseptal subcutaneous edema - on IV abx here (Vanc and Zosyn, acyclovir ) - ON DISCHARGE FINISH COURSE WRITTEN - VALACYCLOVIR 500MG 2 TABS TID X 8 DAYS - AUGMENTIN 500MG 1 TAB TID X 8 DAYS Bullous Pemphigoid - Continued prednisone 27.5mg daily and hydroxyzine 25mg QID prn - Continued Azathioprine 50 BID - doxycycline and dicloxacillin held Hyponatremia - chronic - Continue NaCl tabs- no acute issues Afib/HLD/HTN - Continue digoxin 0.125, diltiazem 120mg, metoprolol 25mg BID - Continue xarelto 20mg daily -- given declining renal function, per pharmacy' s rec 15 mg daily may be considered - Continue simvastatin 10mg qhs GERD - continue ranitidine 150 qhs Depression - Continue bupropion 75 daily Dementia - Continue memantine 10mg BID Hypothyroidism - continue levothyroxine 50 mcg dailybb DM - continue detemir 10 units daily - continue home meds DVT prop: xarelto 20mg daily given here - can consider lowering this dose to 15 mg given renal function. will defer to PCP. Code: Full Dispo: 4E - [place] karthik bed hold, pending clinical improvement A Mirza Resident Physician Supervision Note: I interviewed and examined the patient. Discussed with Dr. Blue and agree with findings and plan as documented in the note. Any exceptions or clarifications are listed here: None Documented By: Jalen Buckner no meaningful HPI or ROS vitals noted nad breathing unlabored no pallor or icterus. eye swelling appears sl less, erythema almost, less swelling overall, able to open eye, conjunctiva appears grossly clear. lesions crusted V1 shingles w superimposed preseptal cellulitis -acyclovir, vanco, zosyn, supportive care while inpt. valtrex and augmentin after discharge -stable for return to SNF bullous disease -doxy and diclox on hold while on augmentin, but obviously would resume as appropriate once augmentin complete otherwise as above Total Time Spent: Less than 30 minutes This includes examination of the patient, discharge planning, medication reconciliation, and communication with other providers. Discharge Instructions Please refer to the electronic Patient Visit Report (Discharge Instructions) for additional information. Additional Copies To Karthik Rubin Resident Tracking Resident Involvement: Resident Care Provided Care Provided: Adult Hospital Medicine
[2017-11-23 13:31] VITALS: BP 152/95; PULSE 72; TEMP 36.3; O2SAT 100
[2017-11-24] MEDS ORDERED: VANCOMYCIN TROUGH ONE (05:30)
== END 2017-11-23 14:54 | DRG 603 ==
LOC: EDBD 11:51 → C.EDD 11:53 → C.MS4W 18:33 → EDBEDREQ 18:38 → ENRESERV 19:04 → C.4E 11-21 10:28
PROVIDERS: ADMIT Family Medicine; ATTEND Family Medicine
DX: L03.213 Periorbital cellulitis (principal); B02.30 Zoster ocular disease, unspecified; L12.0 Bullous pemphigoid; E87.1 Hypo-osmolality and hyponatremia; I11.9 Hypertensive heart disease without heart failure; I48.91 Unspecified atrial fibrillation; E78.5 Hyperlipidemia, unspecified; E03.9 Hypothyroidism, unspecified; E11.9 Type 2 diabetes mellitus without complications; I27.20 Pulmonary hypertension, unspecified; F03.90 Unspecified dementia, unspecified severity, without behavioral disturbance, psychotic disturbance, mood disturbance, and anxiety; K21.9 Gastro-esophageal reflux disease without esophagitis; F32.9 Major depressive disorder, single episode, unspecified; Z79.899 Other long term (current) drug therapy; Z79.01 Long term (current) use of anticoagulants; Z79.4 Long term (current) use of insulin; Z79.52 Long term (current) use of systemic steroids; Z95.0 Presence of cardiac pacemaker; Z86.73 Personal history of transient ischemic attack (TIA), and cerebral infarction without residual deficits